=== PATIENT | female | born 2000 | race Caucasian/White ===

== ENCOUNTER 2019-03-01 21:27 | Observation (INO) ==
[2019-03-01] MEDS ORDERED: LORazepam 1 MG/2 ML VIAL IV STA (22:07)
[2019-03-01] MEDS ORDERED: FAMOTIDINE 20MG/5ML IV PUSH IV STA ×2 (22:16→23:30)
[2019-03-01] MEDS ORDERED: ASPIRIN CHEW 324 MG PO STA (22:16)
[2019-03-01 22:23] LABS: Basophils # (auto) 0.02 K/uL (0-0.2); Basophils % (auto) 0.2 %; Eosinophils # (auto) 0.23 K/uL (0-0.5); Eosinophils % (auto) 2.5 %; Hematocrit (blood only) 41.6 % (37-47); Hemoglobin 14.2 g/dL (12.0-16.0); Immature Granulocytes # (auto) 0.01 K/uL (0.00-0.02); Immature Granulocytes % (auto) 0.1 %; Lymphocytes # (auto) 2.53 K/uL (1.2-3.4); Mean Corpuscular Hemoglobin 30.3 pg (25-34); Mean Corpuscular Hgb Conc 34.1 g/dL (32-36); Mean Corpuscular Volume 88.7 fL (80-100); Monocytes # (auto) 0.63 K/uL (0.11-0.59); Neutrophils # (auto) 5.62 K/uL (1.4-6.5); Neutrophils % (auto) 62.2 %; Platelet Count 302 K/uL (130-400); RDW Coefficient of Variation 13.2 % (11.5-14.5); Red Blood Count 4.69 M/uL (4.2-5.4); White Blood Count 9.04 K/uL (4.8-10.8)
--- NOTE | 2019-03-01 22:26 | XRay Report ---
XR chest 1V portable CLINICAL HISTORY: Chest Pain dyspnea COMPARISON STUDY: No previous studies for comparison. FINDINGS: The bones soft tissues and hemidiaphragms are normal. The cardiomediastinal silhouette is n ormal. The lungs are clear. The pulmonary vasculature is normal. IMPRESSION: Negative chest. ACT 112: Negative or not required by law. The above report was generated using voice recognition software. It may contain grammatical, syntax or spelling errors. Electronically signed by: Krishna Ceja M.D. 03/01/2019 10:24 PM
[2019-03-01 22:42] LABS: Alanine Aminotransferase 14 U/L (12-78); Albumin Level 3.8 gm/dl (3.4-5.0); Aspartate Aminotransferase 10 U/L (15-37); BUN Creatinine Ratio 22.6 (10-20); Blood Urea Nitrogen 15 mg/dl (7-18); Calcium 8.9 mg/dl (8.5-10.1); Carbon Dioxide 27 mmol/L (21-32); Chloride 109 mmol/L (98-107); Creatinine Clr Calc Pharmacy 191.5 ml/min; Est GFR (African American) 147.7; Est GFR (Non-African American) 127.4; Glucose 84 mg/dl (70-99); Lipase 421 U/L (73-393); Magnesium 2.1 mg/dl (1.8-2.4); Potassium 3.8 mmol/L (3.5-5.1); Sodium 140 mmol/L (136-145)
[2019-03-01 22:47] LABS: Albumin Globulin Ratio 0.9 (0.9-2); Alkaline Phosphatase 90 U/L (45-117); Bilirubin,Total 0.2 mg/dl (0.2-1); Globulin 4.1 gm/dl (2.5-4.0); Total Protein 7.9 gm/dl (6.4-8.2); Troponin I < 0.015 ng/ml (0-0.045)
[2019-03-01] MEDS ORDERED: GI COCKTAIL ED USE PO ONE (23:30)
[2019-03-01] MEDS ORDERED: LORazepam 2 MG/4 ML VIAL IV STA (23:59)
[2019-03-02 00:47] LABS: Amphetamines+Metham, Urine Neg (Neg); Barbiturates, Urine Neg (Neg); Benzodiazepine, Urine Neg (Neg); Cocaine, Urine Neg (Neg); MDMA (Ecstacy), Urine Neg (Neg); Methadone, Urine Neg (Neg); Opiate, Urine Neg (Neg); Phencyclidine, Urine Neg (Neg)
--- NOTE | 2019-03-02 01:30 | Emergency Department Note ---
Entered by Mimi Monge acting as a scribe for Valentina Tolentino MD History of Present Illness General Chief complaint: Cardiac Assessment Stated complaint: CHEST PAIN, SEIZURE HX Time Seen by Provider: 03/01/19 22:05 Source: patient Limitations: other (Pt being post-ictal.) History of Present Illness Maximum Pain Intensity: 8 The patient is a 18 year old female who presents to the Emergency Room with complaints of worsening chest pain beginning three days ago. The patient states a history of a seizure disorder. She reports worsening chest pain that started three days ago. The patient notes she told her girlfriend she was pre-seizure and then had her typical seizure that lasted less than one minute. She states she follows with Dr. Salas, neurology. The patient reports she recently switched from Keppra to Topamax. HPI limited secondary to the patient being post-ictal and confused. Home Medications Home Medications Medication Instructions Recorded Confirmed Type epinephrine [EpiPen] 0.3 mg IM DIRECTED PRN 02/14/19 03/01/19 History gabapentin 300 mg PO BID 02/14/19 03/01/19 History levetiracetam 500 mg PO BID 02/14/19 03/01/19 History topiramate 25 mg tablet 25 mg PO DAILY #30 tab 02/17/19 03/01/19 Rx Allergies Allergy/AdvReac Type Severity Reaction Status Date / Time bee venom protein (honey bee) Allergy Severe Anaphylaxis Verified 03/01/19 23:13 Penicillins Allergy Severe Itchiness Verified 03/01/19 23:13 latex Allergy Intermediate Skin Tony Verified 03/01/19 23:13 Past Med/Surg History Medical History Asthma Migraine without aura PCOS (polycystic ovarian syndrome) PTSD (post-traumatic stress disorder) Surgical History No pertinent past surgical history Family History Other No significant family history Social History Preferred Language: Georgian Feels Safe at Home: Yes Smoking Status: Current every day smoker Review of Systems See HPI for pertinent positives & negatives. and A total of 10 systems reviewed and were otherwise negative Initial review of systems was unable to be obtained due to apparent postictal state however after patient cleared and ROS was obtained. Physical Exam Vital Signs Vital Signs - 24 hr 03/01/19 21:29 03/01/19 22:04 03/01/19 22:16 Temperature 37.4 C Temperature Source Oral Pulse Rate 106 H 68 84 Pulse Rate from SpO2 Sensor 66 77 Respiratory Rate 20 24 24 Respiratory Effort / Characteristics Non-Labored Spontaneous Respiratory Depth Normal Respiratory Pattern Regular Blood Pressure 153/98 H 144/92 H 146/90 H Blood Pressure Mean 116 97 112 Blood Pressure Position Sitting Pulse Oximetry 99 96 96 Oxygen Delivery Method Room Air Sepsis Recent Fever Within 48 Hours No Sepsis Action Taken by Nursing No Action Required 03/01/19 22:18 03/01/19 22:19 03/01/19 22:30 Temperature Temperature Source Pulse Rate 70 Pulse Rate from SpO2 Sensor 71 Respiratory Rate 24 Respiratory Effort / Characteristics Respiratory Depth Respiratory Pattern Blood Pressure 143/84 H Blood Pressure Mean 97 Blood Pressure Position Pulse Oximetry 96 96 99 Oxygen Delivery Method Room Air Room Air Sepsis Recent Fever Within 48 Hours Sepsis Action Taken by Nursing 03/01/19 22:45 03/01/19 23:00 03/01/19 23:45 Temperature Temperature Source Pulse Rate 75 74 66 Pulse Rate from SpO2 Sensor 72 64 Respiratory Rate 24 24 12 Respiratory Effort / Characteristics Respiratory Depth Respiratory Pattern Blood Pressure 135/79 125/82 125/70 Blood Pressure Mean 97 100 84 Blood Pressure Position Pulse Oximetry 97 98 Oxygen Delivery Method Sepsis Recent Fever Within 48 Hours Sepsis Action Taken by Nursing 03/02/19 00:16 03/02/19 01:31 03/02/19 01:45 Temperature Temperature Source Pulse Rate 83 81 83 Pulse Rate from SpO2 Sensor 94 H Respiratory Rate 24 22 20 Respiratory Effort / Characteristics Respiratory Depth Respiratory Pattern Blood Pressure 120/108 H 136/119 H 151/99 H Blood Pressure Mean 115 125 104 Blood Pressure Position Pulse Oximetry 96 Oxygen Delivery Method Sepsis Recent Fever Within 48 Hours Sepsis Action Taken by Nursing Vital signs reviewed. General: Well-appearing, obese, 18 y/o female, in no significant distress. HEENT: No scleral icterus, PERRLA, neck supple. Atraumatic. Cardiovascular: Regular rate and rhythm, no extra sounds. Pulmonary: Clear to auscultation bilaterally, normal work of breathing. Abdomen: Soft, nontender, nondistended, positive bowel sounds. Musculoskeletal: Atraumatic, no peripheral edema. Neurologic: Patient awake alert and oriented x 3, full strength in all 4 extremities. Cranial nerves 2 through 12 grossly intact. Skin: Warm, dry, no rash Course Course 221: Past medical records reviewed. The patient was evaluated in room C03. A complete history and physical examination was performed. 2358: I reevaluated the patient. She started to get completely confused and pulled off her clothes. Her girlfriend notes this in her normal activity just prior to a "seizure." The patient was given 2mg of IV Ativan and 1g of IV Keppra. She seems to be doing well. 0042: I was called back to the patient's bedside due to some suicidal references the patient made. She has pointed out some superficial lacerations to the right thigh that are self-inflicted. Patient states she has a long psychiatric history and multiple inpatient psych stays. She denies any acute suicidality at this time although did make reference to this earlier to the nurse. As the pat ient has questionable seizure activity and is followed by [facility]y, I reviewed the patient's case with Dr. Redman, [facility] Hospitalist. He will evaluate the patient for further management. 0200: I did review the case with the psychiatric case briefer. Patient will stay for a medical admission and psychiatric consultation. Administered Medications Discontinued Medications Al Hydrox/Mg Hydrox/Simethicone () 1 dose PO ONE ONE Stop: 03/01/19 23:31 Last Admin: 03/01/19 23:38 Dose: 1 dose Documented by: [id number] Aspirin (Aspirin) 324 mg PO NOW STA Stop: 03/01/19 22:17 Last Admin: 03/01/19 22:25 Dose: 324 mg Documented by: [id number] Famotidine (Pepcid 20mg Iv Push) 20 mg IV ONE STA Stop: 03/01/19 22:17 Last Admin: 03/01/19 22:25 Dose: 20 mg Documented by: [id number] Famotidine (Pepcid 20mg Iv Push) 20 mg IV ONE STA Stop: 03/01/19 23:31 Last Admin: 03/01/19 23:38 Dose: 20 mg Documented by: [id number] Lorazepam (Ativan) 1 mg in 2 mls @ 2 mls/min IV NOW STA Stop: 03/01/19 22:08 Last Admin: 03/01/19 22:14 Dose: 2 mls/min Documented by: [id number] Levetiracetam 1,000 mg/ (Dextrose) 110 mls @ 440 mls/hr IV NOW STA Stop: 03/02/19 00:13 Last Infusion: 03/02/19 00:40 Dose: 0 mls/hr Documented by: [id number] Admin: 03/02/19 00:19 Dose: 440 mls/hr Documented by: [id number] Lorazepam (Ativan) 2 mg in 4 mls @ 4 mls/min IV NOW STA Stop: 03/02/19 00:00 Last Admin: 03/02/19 00:02 Dose: 4 mls/min Documented by: [id number] Critical Care Time Critical Care Time: Yes (31) I have personally spent greater than 31 minutes of critical care time in the dir ect management of this patient. This includes bedside care, interpretation of diagnostic studies, and testing, discussion with consultants, patient, and family members, and other required patient management activities. This 31 minutes is in excess of all separately billable procedures. Medical Decision Making Differential Diagnosis Differential diagnosis includes etiologies such as infection, hypoglycemia, electrolyte abnormalities, intracerebral event, trauma, toxicologic, neurologic, acute coronary syndrome, myocardial infarction, pericarditis, pulmonary embolus, aortic dissection, pneumonia, pneumothorax, musculoskeletal, shingles, esophageal. Medical Records Attestation: I reviewed the patient's medical records. Home Medications Current Medication List: was personally reviewed by me Laboratory Data Attestation: I reviewed the patient's lab results. Result diagrams: 03/01/19 Unknown 03/01/19 Unknown Lab Results 03/01/19 03/01/19 03/02/19 Range/Units Unknown Unknown 00:16 WBC 9.04 (4.8-10.8) K/uL RBC 4.69 (4.2-5.4) M/uL Hgb 14.2 (12.0-16.0) g/dL Hct 41.6 (37-47) % MCV 88.7 (80-100) fL MCH 30.3 (25-34) pg MCHC 34.1 (32-36) g/dL RDW Std Deviation 43.0 (36.4-46.3) fL RDW Coeff of Alessandra 13.2 (11.5-14.5) % Plt Count 302 (130-400) K/uL MPV 11.0 H (7.4-10.4) fL Immature Gran % (Auto) 0.1 % Neut % (Auto) 62.2 % Lymph % (Auto) 28.0 % Luce % (Auto) 7.0 % Eos % (Auto) 2.5 % Baso % (Auto) 0.2 % Immature Gran # (Auto) 0.01 (0.00-0.02) K/uL Neut # (Auto) 5.62 (1.4-6.5) K/uL Lymph # (Auto) 2.53 (1.2-3.4) K/uL Luce # (Auto) 0.63 H (0.11-0.59) K/uL Eos # (Auto) 0.23 (0-0.5) K/uL Baso # (Auto) 0.02 (0-0.2) K/uL Sodium 140 (136-145) mmol/L Potassium 3.8 (3.5-5.1) mmol/L Chloride 109 H (98-107) mmol/L Carbon Dioxide 27 (21-32) mmol/L Anion Gap 4.0 (3-11) BUN 15 (7-18) mg/dl Creatinine 0.67 (0.6-1.2) mg/dl Est Cr Clr Drug Dosing 191.5 ml/min Est GFR ( Amer) 147.7 Est GFR (Non-Af Amer) 127.4 BUN/Creatinine Ratio 22.6 H (10-20) Glucose 84 (70-99) mg/dl Calcium 8.9 (8.5-10.1) mg/dl Magnesium 2.1 (1.8-2.4) mg/dl Total Bilirubin 0.2 (0.2-1) mg/dl AST 10 L (15-37) U/L ALT 14 (12-78) U/L Alkaline Phosphatase 90 (45-117) U/L Troponin I < 0.015 (0-0.045) ng/ml Total Protein 7.9 (6.4-8.2) gm/dl Albumin 3.8 (3.4-5.0) gm/dl Globulin 4.1 H (2.5-4.0) gm/dl Albumin/Globulin Ratio 0.9 (0.9-2) Lipase 421 H (73-393) U/L Urine Opiates Screen Neg (Neg) Ur Methadone, Qual Neg (Neg) Urine Barbiturates Neg (Neg) Ur Phencyclidine (PCP) Neg (Neg) U Amphetamin/Meth Scrn Neg (Neg) MDMA (Ecstasy) Screen Neg (Neg) U Benzodiazepines Scrn Neg (Neg) Ur Cocaine Metabolite Neg (Neg) U Marijuana (THC) Screen Pos H (Neg) Imaging Data Radiologist's Impression: Radiology results as stated below per my review and the radiologist's interpretation: XR chest 1V portable CLINICAL HISTORY: Chest Pain dyspnea COMPARISON STUDY: No previous studies for comparison. FINDINGS: The bones soft tissues and hemidiaphragms are normal. The cardiomediastinal silhouette is normal. The lungs are clear. The pulmonary vasculature is normal. IMPRESSION: Negative chest. ACT 112: Negative or not required by law. The above report was generated using voice recognition software. It may contain grammatical, syntax or spelling errors. Electronically signed by: Krishna Ceja M.D. 03/01/2019 10:24 PM ECG Data Attestation: I personally reviewed and interpreted this ECG as follows: Indication: + chest pain Rate (beats per minute): 87 Rhythm: + normal sinus ECG Intervals/blocks: + Normal QT-c ECG ST segments: no ST depression and no ST elevation ECG Findings: no PACs and no PVCs Prescription Drug Monitoring Prescription Drug Findings: An order for cardiac monitoring was placed and the patient is found to be in a sinus tachycardia at 106 bpm. Blood Pressure Blood Pressure Findings: Elevated blood pressure Blood Pressure Disposition: further management by hospitalist MIGNON Narrative This patient was evaluated and appeared to be in no significant distress. IV access was obtained and laboratory work was drawn. Patient was placed on the diesel instructor with seizure precautions maintained. Patient had an interesting course through the visits in the emergency department. She is initially complaining of chest pain. Patient's EKG, chest x-ray and laboratory work are reassuring. Patient had an episode of a "seizure" which per girlfriend escalates into staring, thrashing and pulling at clothing/IVs. The patient did take off her shirt several times, kicked off her shoes and attempted to remove her pants. There was no tonic-clonic activity to follow. Patient did receive 2 mg of IV Ativan with transient improvement in symptoms. She was loaded with 1 g of IV Keppra. After reviewing the patient's records more thoroughly, I recent note from neurology reveals they held her Keppra therapy for pending EMU. Patient is currently taking Topamax. Patient had another seizure-like episode but was able to be redirected. She apparently stated to nursing staff that she is suicidal. Upon my questioning the patient, she states she has passively suicidal. She denies any intent to harm herself currently. The case was discussed with the hospitalist, Dr. Pierce who has requested psychiatric case management evaluation. The patient apparently endorsed suicidal thinking. She states she has been inpatient psych many times. At this time the patient will be admitted medically for clearance of the seizure-like activity/neurological consultation with a 302 petition on the chart. The patient will likely need to transition to psychiatric care. Impression & Plan Seizure-like activity, Atypical chest pain, Mood disorder, Suicidal thoughts Discharge Plan Visit Data Chief Complaint: Cardiac Assessment Stated Complaint: CHEST PAIN, SEIZURE HX ED Provider: Valentina Tolentino Discharge Problem: Seizure-like activity, Atypical chest pain, Mood disorder, Suicidal thoughts Patient Disposition: Being Evaluated by Hospitalist Forms Stand Alone Forms: My [facility] Prescriptions Prescriptions: No Action topiramate 25 mg tablet 25 mg PO DAILY Qty: 30 RF: 0 levetiracetam 500 mg tablet 500 mg PO BID RF: 0 gabapentin 300 mg capsule 300 mg PO BID RF: 0 epinephrine [EpiPen] 0.3 mg/0.3 mL Auto-Injector 0.3 mg IM DIRECTED PRN (Reason: Anaphylaxis) RF: 0 Referrals Referrals: Emely Urrutia CRNP [Primary Care Provider] - The scribe's documentation has been prepared under my direction and personally reviewed by me in its entirety. I confirm that the note above accurately reflects all work, treatment, procedures, and medical decision making performed by me.
[2019-03-02 02:11] LABS: Appearance Urine Turbid (Clear); Bacteria Urine Automated 2+ (Negative); Bilirubin Urine Negative (Negative); Blood Urine Negative (Negative); Color Urine Yellow; Epithelial Cell Urine Auto >30 /lpf (0-5); Glucose Urine UA Negative (Negative); Ketones Urine Negative (Negative); Leukocyte Esterase Urine Trace (Negative); Nitrite Urine Negative (Negative); Protein Urine Negative (Negative); Urobilinogen Urine Negative (Negative); WBC Urine Automated >30 /hpf (0-5); pH Urine 5.5 (4.5-7.5)
[2019-03-02 02:15] LABS: Pregnancy Test, Urine Negative (Negative)
[2019-03-02 02:20] LABS: Cast Urine Automated 0 /lpf (0-5); RBC Urine Automated 0-4 /hpf (0-4)
[2019-03-02 02:21] LABS: Mucus Urine Present (None Prsent)
--- NOTE | 2019-03-02 03:35 | History & Physical Report ---
Date of Service March 02, 2019 Assessment & Plan (1) Seizure-like activity: 18 yo transgender man with PMH of asthma, PCOS, PTSD, seizure disorder, and polysubstance abuse presents with concerns of CP (workup neg), questionable seizure like activity while in ED, and admission to some passive suicidal ideations. Seizure-like Activity -Pt follows with Dr. Salas. Last seen Feb 17, 2019. -Notes that these recurrent spells of LOC with convulsive movements most likely suggestive of psychogenic nonepileptic seizures -pt's Keppra was not refilled as Neuro wanted to hold off on AEDs until EMU visit at [facility] (for spell capture/classification) -pt was previously on Depakote 500 mg BID (worked well but was stopped 2/2 ? concern) -pt was started on start topamax 25mg daily for migraines -EEG Oct 2018: PDR 10-11 Hz, generalized intermittent 4-5 Hz slowing suggestive of encephalopathy, no focal slowing or epileptiform discharges, no electrographic seizures noted -MRI Brain Oct 2018 ([facility] [place])- No T2 hyperintensities noted, acute or chronic strokes, no mesial temporal sclerosis, normal cerebellar tonsils -EEG in AM. Defer additional head imaging to Neurology -Seizure precautions -Appreciate Neurology Consult Suicidal Ideations -302 in pt's chart -1:1 sitter ordered -Suicide precautions -Appreciate Psych Consult Polysubstance Abuse -UDS: Positive for MJ -recent hospitalization at [facility] [place] Oct 2018 for respiratory arrest 2/ heroin/meth/marijuana overdose FEN/GI: Regular. Safe Tray. DVT Prophylaxis: Low risk per admission calculator Full Code Dispo: Med Tele. Anticipate inpt psych admission after medical clearance. History of Present Illness Chief Complaint: cp Primary Care Provider: JODI Mead Alexandre "Willie" Florencia is a 18 yo transgender man with PMH of asthma, PCOS, PTSD, seizure disorder, and polysubstance abuse who presents to [facility] with complaints of CP that began 3 days ago. Pt accompanied by girlfriend, and both are questionable historians. Worse with exertion. Radiates into L side of neck and down into L UE and LE. Pt admits that she used to do meth, but quit 2 months ago and believes that maybe this might be related to withdrawal. While in the ER, pt reports that she had a typical seizure that lasted less than one minute. Per ER physician report, pt started to get completely confused and pulled off her clothes. Her girlfriend notes this in her normal activity just prior to a seizure. No actual tonic-clonic activity was witnessed, however. Pt follows with Dr. Salas (Neurology) and reports that she recently switched from Keppra to Topamax a few weeks ago. While in ED, pt made remarks about fleeting thoughts of wanting to hurt herself and passive suicidal ideations to nursing staff. Pt willingly pointed out some superficial lacerations to the right thigh that are self-inflicted. Pt with long psychiatric history and multiple inpatient psych stays. At time of my evaluation, pt does admit to making these remarks regarding suicidal ideations, but states that she does not think that this warrants a psychiatric admission. A psychiatric case management evaluation was done in ED. The patient apparently endorsed suicidal thinking. A 302 petition is in pt's chart. Pt will be admitted medically for clearance of the seizure-like activity and a Neuro consultation. More than likely, pt will transition to inpt psych admission after this. EKG: NSR. When compared with ECG of 14-FEB-2019, no significant changes found CXR: Negative chest Pertinent Labs: Lipase 421. Initial Trop neg. Otherwise unremarkable. ER Course: 2mg of IV Ativan and 1g of IV Keppra Family Hx: Father- epilepsy. Otherwise unremarkable Social: Daily MJ Use. Previous heroin, meth use (last used 2 months ago). 1ppd x 2 yrs, 1/2 ppd from [age] yo. Social Alcohol use. Surgical Hx: None Allergies Allergy/AdvReac Type Severity Reaction Status Date / Time bee venom protein (honey bee) Allergy Severe Anaphylaxis Verified 03/01/19 23:13 Penicillins Allergy Severe Itchiness Verified 03/01/19 23:13 latex Allergy Intermediate Skin Tony Verified 03/01/19 23:13 Home Medications Home Medications Medication Instructions Recorded Confirmed Type epinephrine [EpiPen] 0.3 mg IM DIRECTED PRN 02/14/19 03/01/19 History gabapentin 300 mg PO BID 02/14/19 03/01/19 History levetiracetam 500 mg PO BID 02/14/19 03/01/19 History topiramate 25 mg tablet 25 mg PO DAILY #30 tab 02/17/19 03/01/19 Rx Past Med/Surg History Medical History Asthma Migraine without aura PCOS (polycystic ovarian syndrome) PTSD (post-traumatic stress disorder) Surgical History No pertinent past surgical history S/P appendectomy S/P cholecystectomy S/P tonsillectomy Family History Mother Hypertension Diabetes Father Epilepsy Other No significant family history Social History Preferred Language: Serbian Beliefs That Will Affect Care: None Current Living Situation: Spouse current occupational status: unemployed current occupation: Starts at [employer] tomorrow. Other Information That Helps Us Care for You: No Feels Safe at Home: Yes Safety Concerns: Feels Safe At This Time Smoking Status: Current every day smoker Tobacco Type: cigarettes ; Cigarettes Per Day: 10 ; Do You Dip or Chew Tobacco: No ; Second Hand Exposure: Yes ; Tobacco Cessation Education Requested by Patient: No Hx Alcohol Use: No Hx Substance Use: Yes substance use type: marijuana and methamphetamine Substance Use Type Other:: meth last used 01/21/2019 Last Used Substance: Days (ago) Last Used Substance Other:: 01/21/2019 Review of Systems Review of Systems: All systems reviewed & are unremarkable except as noted in HPI & below Physical Exam Constitutional: WD/WN, vitals as above + obese Eyes: PERRL, conjunctivae normal, anicteric sclerae ENMT: external ear and nose normal, oropharynx normal Respiratory: normal respiratory effort, lungs clear to auscultation Cardiovascular: RRR, no murmur, no edema Gastrointestinal (Abdomen): normal bowel sounds, soft, nontender, no hepatosplenomegaly Skin: no rashes, warm and dry Neurologic: CN's II-XI intact bilaterally; no focal motor deficits Psychiatric: Affect: + anxious affect Results & Data Vital Signs (Past 12 Hours) Vital Signs Temp Pulse Resp BP Pulse Ox 03/02/19 01:45 83 20 151/99 H 03/02/19 01:31 81 22 136/119 H 03/02/19 00:16 83 24 120/108 H 96 03/01/19 23:45 66 12 125/70 98 03/01/19 23:00 74 24 125/82 97 03/01/19 22:45 75 24 135/79 03/01/19 22:30 70 24 143/84 H 99 03/01/19 22:19 96 03/01/19 22:18 96 03/01/19 22:16 84 24 146/90 H 96 03/01/19 22:04 68 24 144/92 H 96 03/01/19 21:29 37.4 C 106 H 20 153/98 H 99 Laboratory Results Laboratory Results - last 24 hr 03/01/19 03/01/19 03/02/19 Unknown Unknown 00:15 WBC 9.04 RBC 4.69 Hgb 14.2 Hct 41.6 MCV 88.7 MCH 30.3 MCHC 34.1 RDW Std Deviation 43.0 RDW Coeff of Alessandra 13.2 Plt Count 302 MPV 11.0 H Immature Gran % (Auto) 0.1 Neut % (Auto) 62.2 Lymph % (Auto) 28.0 Cuming % (Auto) 7.0 Eos % (Auto) 2.5 Baso % (Auto) 0.2 Immature Gran # (Auto) 0.01 Neut # (Auto) 5.62 Lymph # (Auto) 2.53 Cuming # (Auto) 0.63 H Eos # (Auto) 0.23 Baso # (Auto) 0.02 Sodium 140 Potassium 3.8 Chloride 109 H Carbon Dioxide 27 Anion Gap 4.0 BUN 15 Creatinine 0.67 Est Cr Clr Drug Dosing 191.5 Est GFR ( Amer) 147.7 Est GFR (Non-Af Amer) 127.4 BUN/Creatinine Ratio 22.6 H Glucose 84 Calcium 8.9 Magnesium 2.1 Total Bilirubin 0.2 AST 10 L ALT 14 Alkaline Phosphatase 90 Troponin I < 0.015 Total Protein 7.9 Albumin 3.8 Globulin 4.1 H Albumin/Globulin Ratio 0.9 Lipase 421 H TSH 1.470 Urine Color Yellow Urine Appearance Turbid A Urine pH 5.5 Ur Specific [place] 1.030 Urine Protein Negative Urine Glucose (UA) Negative Urine Ketones Negative Urine Blood Negative Urine Nitrite Negative Urine Bilirubin Negative Urine Urobilinogen Negative Ur Leukocyte Esterase Trace H Urine WBC (Auto) >30 H Urine RBC (Auto) 0-4 U Hyaline Cast (Auto) 0 U Epithel Cells (Auto) >30 H Urine Bacteria (Auto) 2+ H Urine Mucus Present A Urine Yeast Not Reportable Urine Test POC Ur Test Urine Opiates Screen Ur Methadone, Qual Urine Barbiturates Ur Phencyclidine (PCP) U Amphetamin/Meth Scrn MDMA (Ecstasy) Screen U Benzodiazepines Scrn Ur Cocaine Metabolite U Marijuana (THC) Screen U Marijuana THC Carboxy Drug Screen Comment 03/02/19 03/02/19 03/02/19 00:15 00:15 00:16 WBC RBC Hgb Hct MCV MCH MCHC RDW Std Deviation RDW Coeff of Alessandra Plt Count MPV Immature Gran % (Auto) Neut % (Auto) Lymph % (Auto) Cuming % (Auto) Eos % (Auto) Baso % (Auto) Immature Gran # (Auto) Neut # (Auto) Lymph # (Auto) Cuming # (Auto) Eos # (Auto) Baso # (Auto) Sodium Potassium Chloride Carbon Dioxide Anion Gap BUN Creatinine Est Cr Clr Drug Dosing Est GFR ( Amer) Est GFR (Non-Af Amer) BUN/Creatinine Ratio Glucose Calcium Magnesium Total Bilirubin AST ALT Alkaline Phosphatase Troponin I Total Protein Albumin Globulin Albumin/Globulin Ratio Lipase TSH Urine Color Urine Appearance Urine pH Ur Specific [place] Urine Protein Urine Glucose (UA) Urine Ketones Urine Blood Urine Nitrite Urine Bilirubin Urine Urobilinogen Ur Leukocyte Esterase Urine WBC (Auto) Urine RBC (Auto) U Hyaline Cast (Auto) U Epithel Cells (Auto) Urine Bacteria (Auto) Urine Mucus Urine Yeast Urine Test Negative POC Ur Test Cancelled Urine Opiates Screen Neg Ur Methadone, Qual Neg Urine Barbiturates Neg Ur Phencyclidine (PCP) Neg U Amphetamin/Meth Scrn Neg MDMA (Ecstasy) Screen Neg U Benzodiazepines Scrn Neg Ur Cocaine Metabolite Neg U Marijuana (THC) Screen Pos H U Marijuana THC Carboxy Drug Screen Comment 03/02/19 00:16 WBC RBC Hgb Hct MCV MCH MCHC RDW Std Deviation RDW Coeff of Alessandra Plt Count MPV Immature Gran % (Auto) Neut % (Auto) Lymph % (Auto) Cuming % (Auto) Eos % (Auto) Baso % (Auto) Immature Gran # (Auto) Neut # (Auto) Lymph # (Auto) Cuming # (Auto) Eos # (Auto) Baso # (Auto) Sodium Potassium Chloride Carbon Dioxide Anion Gap BUN Creatinine Est Cr Clr Drug Dosing Est GFR ( Amer) Est GFR (Non-Af Amer) BUN/Creatinine Ratio Glucose Calcium Magnesium Total Bilirubin AST ALT Alkaline Phosphatase Troponin I Total Protein Albumin Globulin Albumin/Globulin Ratio Lipase TSH Urine Color Urine Appearance Urine pH Ur Specific [place] Urine Protein Urine Glucose (UA) Urine Ketones Urine Blood Urine Nitrite Urine Bilirubin Urine Urobilinogen Ur Leukocyte Esterase Urine WBC (Auto) Urine RBC (Auto) U Hyaline Cast (Auto) U Epithel Cells (Auto) Urine Bacteria (Auto) Urine Mucus Urine Yeast Urine Test POC Ur Test Urine Opiates Screen Ur Methadone, Qual Urine Barbiturates Ur Phencyclidine (PCP) U Amphetamin/Meth Scrn MDMA (Ecstasy) Screen U Benzodiazepines Scrn Ur Cocaine Metabolite U Marijuana (THC) Screen U Marijuana THC Carboxy Pending Drug Screen Comment Pending Code Status & VTE Plan Code Status FULL Supervising Physician Co-Signing Physician Notes Attending addendum: I have physically seen this patient, have supervised the medical residents activities, and agree with the H&P unless as otherwise noted. Assessment and Plan: Seizure-like activity- Recently seen by Dr. Salas in the office on 02/17/2019. Activity as noted by emergency department personnel questioned true seizure activity. Did receive Keppra 1000 mg IV x1. Order EEG for a.m. Since MRI brain performed 10/2018 at [facility] [place], will not repeat at this time. Suicidal ideations- Reported by patient and by patient's friends in attendance. Psychiatry liaison agrees the patient should be 302'd. One-on-one observation. Suicide precautions. Consult psychiatry. Remainder of orders and notations as noted. Resident Activity Tracking Resident Involvement: Resident Care Provided Care Provided: Adult Hospital Medicine
[2019-03-02] MEDS ORDERED: ALUMINUM/MAGNESIUM SUSP 30 ML UDC PO PRN (04:38)
[2019-03-02] MEDS ORDERED: ONDANSETRON INJ 2 MG/ML 2 ML VIAL IV PRN (04:38)
[2019-03-02] MEDS ORDERED: ACETAMINOPHEN 325 MG TAB PO PRN (04:38)
[2019-03-02 06:22] LABS: Basophils # (auto) 0.02 K/uL (0-0.2); Basophils % (auto) 0.1 %; Eosinophils # (auto) 0.25 K/uL (0-0.5); Eosinophils % (auto) 1.8 %; Hematocrit (blood only) 40.5 % (37-47); Hemoglobin 13.9 g/dL (12.0-16.0); Immature Granulocytes # (auto) 0.04 K/uL (0.00-0.02); Immature Granulocytes % (auto) 0.3 %; Lymphocytes # (auto) 2.99 K/uL (1.2-3.4); Lymphocytes % (auto) 21.3 %; Mean Corpuscular Hemoglobin 30.2 pg (25-34); Mean Corpuscular Hgb Conc 34.3 g/dL (32-36); Mean Corpuscular Volume 87.9 fL (80-100); Mean Platelet Volume 11.4 fL (7.4-10.4); Monocytes % (auto) 5.7 %; Neutrophils # (auto) 9.91 K/uL (1.4-6.5); Neutrophils % (auto) 70.8 %; Platelet Count 293 K/uL (130-400); RDW Coefficient of Variation 13.2 % (11.5-14.5); RDW Standard Deviation 42.5 fL (36.4-46.3); Red Blood Count 4.61 M/uL (4.2-5.4); White Blood Count 14.01 K/uL (4.8-10.8)
[2019-03-02 06:58] LABS: BUN Creatinine Ratio 20.9 (10-20); Est GFR (African American) 147.7; Est GFR (Non-African American) 127.4
--- NOTE | 2019-03-02 09:21 | Electroencephalogram ---
EEG Procedure Note Date of Service March 02, 2019 Start / End Times Start Time: 628 End Time: [address] Soto History 18-year-old with history of seizures versus pseudoseizures. Home Medication List Home Medications Medication Instructions Recorded Confirmed Type epinephrine [EpiPen] 0.3 mg IM DIRECTED PRN 02/14/19 03/01/19 History gabapentin 300 mg PO BID 02/14/19 03/01/19 History levetiracetam 500 mg PO BID 02/14/19 03/01/19 History topiramate 25 mg tablet 25 mg PO DAILY #30 tab 02/17/19 03/01/19 Rx Inpatient Medication List Discontinued Medications Al Hydrox/Mg Hydrox/Simethicone () 1 dose PO ONE ONE Stop: 03/01/19 23:31 Last Admin: 03/01/19 23:38 Dose: 1 dose Documented by: [id number] Aspirin (Aspirin) 324 mg PO NOW STA Stop: 03/01/19 22:17 Last Admin: 03/01/19 22:25 Dose: 324 mg Documented by: [id number] Famotidine (Pepcid 20mg Iv Push) 20 mg IV ONE STA Stop: 03/01/19 22:17 Last Admin: 03/01/19 22:25 Dose: 20 mg Documented by: [id number] Famotidine (Pepcid 20mg Iv Push) 20 mg IV ONE STA Stop: 03/01/19 23:31 Last Admin: 03/01/19 23:38 Dose: 20 mg Documented by: [id number] Lorazepam (Ativan) 1 mg in 2 mls @ 2 mls/min IV NOW STA Stop: 03/01/19 22:08 Last Admin: 03/01/19 22:14 Dose: 2 mls/min Documented by: [id number] Levetiracetam 1,000 mg/ (Dextrose) 110 mls @ 440 mls/hr IV NOW STA Stop: 03/02/19 00:13 Last Infusion: 03/02/19 00:40 Dose: 0 mls/hr Documented by: [id number] Admin: 03/02/19 00:19 Dose: 440 mls/hr Documented by: [id number] Lorazepam (Ativan) 2 mg in 4 mls @ 4 mls/min IV NOW STA Stop: 03/02/19 00:00 Last Admin: 03/02/19 00:02 Dose: 4 mls/min Documented by: [id number] Description This is a 21 electrode EEG with a single channel dedicated to limited EKG. The electrodes were placed in accordance with the International 10-20 system. Interpretation The predominant background activity consists of a fairly very well modulated 9.5Hz activity, of up to 40 mV in amplitude,seen symmetrically distributed over the posterior head regions bilaterally. This activity attenuates nicely with eye-opening and other alerting procedures. Photic stimulation was performed and elicited some driving response in the background activity at low flash frequencies, but no abnormal responses were seen. Hyperventilation was not performed. A mild amount of muscle and movement artifact activity contaminated the recording from time to time, yet did not hinder interpretation to any significant degree. Throughout the recording, no focal abnormalities, abnormal slow activity, or potentially epileptogenic discharges were seen. Patient did not enter drowsiness or sleep In summary, this EEG was normal during wakefulness. No focal abnormalities, potentially epileptogenic discharges, or abnormal slow activity was seen. Clinical Correlation The abscence of potentially epileptogenic activity does not exclude a seizure disorder, since interictally, EEGs can be normal. Clinical correlation is required. [facility] EEG Procedure Codes Indication for Procedure (1) Seizure-like activity: Neurology Neurology: 12989 EEG include record awake & drowsy
[2019-03-02] MEDS: TOPIRAMATE 25 MG TAB PO SCH (10:07)
--- NOTE | 2019-03-02 10:30 | Neurology Consultation ---
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 I have spoken with Dr. Salas who does not want the patient initiated on any additional anticonvulsants (especially Keppra) until she is sent to evaluated at epilepsy monitoring unit ([facility]). Neurologic examination is nonfocal with no meningeal signs or encephalopathy. EEG today was unremarkable during wakefulness without focal abnormalities or potentially epileptogenic discharges. Patient has a history of substance abuse but has only been using marijuana since October (according to the patient and the girlfriend present at bedside) Patient has a known history of PTSD and depression/anxiety. Patient wants to talk to Psychiatry. There is a history of migraine headaches which were not helped by low-dose topiramate (and topiramate increased frequency of the spells). Recommendations: 1. Psychiatric consult. 2. Discontinue topiramate 3. Avoid initiating any new anticonvulsants at this time although the patient requests levetiracetam. If levetiracetam has to be given that I would suggest a low-dose such as 500 milligrams twice daily. 4. Increase activity as able. 5. Try to arrange for direct transfer to the [facility] EMU. Until we can capture spells while connected to EEG, just proving seizures versus pseudoseizures, optimal therapy cannot be achieved. Overall, I spent a total of 70 minutes with this case including review of records, direct evaluation the patient bedtime , and discussion of the case with the patient and girlfriend at bedside, RN at bedside, Dr. Salas, and Dr. Barraza, including differential diagnosis and treatment options. History of Present Illness Reason for Consultation: Patient is a 18-year-old, who I was asked to see at the request of Dr. Soto, for neurologic consultation regarding seizures versus pseudoseizures. Requesting Physician: Dr. Soto Attending Physician: Harsha Blanc, DO History of Present Illness Apparently this patient started getting seizures at age 5 or 6. There were staring spells up to 60 seconds without postictal state triggered by stress and starting at age 9 generalized shaking episodes of varying types occasionally with tongue biting or rarely incontinence of urine. Apparently there was a history of episodes of pelvic thrusting, nonrhythmic shaking of the limbs, and even the taking off of clothes during spells. In the past the patient was on Depakote but the patient states that this gave her side effects lethargy. There was a note that this medicine work fairly well for seizures but was taken off because of risk. Patient was changed to levetiracetam. This patient tells me that Keppra is the only medication that works for her seizures. The patient does not think it affects mood in a negative fashion. Apparently the patient has been evaluated by clinicians in [place], [place], [facility], [facility], and [facility] in [place]. No one has been able to prove epilepsy. Patient's PCP put the patient on gabapentin presumably for seizures. The patient is not certain whether this medication helps or not. In October she was admitted for polysubstance abuse including heroin, meth, and marijuana. Apparently, EEG at that time was unremarkable for seizure activity an MRI of the brain was unremarkable. I Do not have these results. The patient saw Dr. Salas February 17 as an outpatient. Her note suggested that she wanted the patient off Keppra and gabapentin. She did initiate topiramate 25 milligrams a day for migraines. Patient believes that the migraines have not been affected by this but they increased the seizure activity considerably. Patient states that there has been no other drug use besides mar ijuana since October. The patient came to the emergency room March 01 with chest pain for several days. There were seizures occurring as well. Last marijuana usage was 1 day prior to admission. At 2128 on March 01, temperature was 37.4, pulse 106, respiratory 20, blood pressure 153/98, and O2 saturation 99 percent. There was questionable seizure activity in the ER and there was some suicidal type ideation in the ER. Allergies Allergy/AdvReac Type Severity Reaction Status Date / Time bee venom protein (honey bee) Allergy Severe Anaphylaxis Verified 03/01/19 23:13 Penicillins Allergy Severe Itchiness Verified 03/01/19 23:13 latex Allergy Intermediate Skin Tony Verified 03/01/19 23:13 Home Medications Home Medications Medication Instructions Recorded Confirmed Type epinephrine [EpiPen] 0.3 mg IM DIRECTED PRN 02/14/19 03/01/19 History gabapentin 300 mg PO BID 02/14/19 03/01/19 History levetiracetam 500 mg PO BID 02/14/19 03/01/19 History topiramate 25 mg tablet 25 mg PO DAILY #30 tab 02/17/19 03/01/19 Rx Patient History Medical History Asthma Migraine without aura PCOS (polycystic ovarian syndrome) PTSD (post-traumatic stress disorder) Surgical History No pertinent past surgical history S/P appendectomy S/P cholecystectomy S/P tonsillectomy Family History Mother Hypertension Diabetes Father Epilepsy Other No significant family history Social History Preferred Language: Setswana Beliefs That Will Affect Care: None Current Living Situation: Spouse current occupational status: unemployed current occupation: Starts at [employer] tomorrow. Other Information That Helps Us Care for You: No Feels Safe at Home: Yes Safety Concerns: Feels Safe At This Time Smoking Status: Current every day smoker Tobacco Type: cigarettes ; Cigarettes Per Day: 10 ; Do You Dip or Chew Tobacco: No ; Second Hand Exposure: Yes ; Tobacco Cessation Education Requested by Patient: No Hx Alcohol Use: No Hx Substance Use: Yes substance use type: marijuana and methamphetamine Substance Use Type Other:: meth last used 01/21/2019 Last Used Substance: Days (ago) Last Used Substance Other:: 01/21/2019 Review of Systems Constitutional: + fatigue; no fever and no weakness Eyes: no diplopia, no eye pain and no worsening vision Ear, Nose, Mouth, Throat: no ear pain, no tinnitus, no hearing loss, no dizziness, no snoring, no hoarseness and no dysphagia Respiratory: no cough and no dyspnea Cardiovascular: no chest pain, no palpitations and no lightheadedness Gastrointestinal: no abdominal pain, no nausea and no vomiting Genitourinary: no dysuria, no urinary frequency and no urinary incontinence Musculoskeletal: + back pain; no neck pain, no radicular pain, no joint pain and no myalgia Integumentary: no rash and no lesions Neurologic: no gait abnormality, no localized weakness, no generalized weakness, no tingling, no numbness, no tremor(s), no abnormal movements, no headache(s), no abnormal speech, no confusion and no memory loss Psychiatric: + depression and + anxiety; no irritability, no difficulty concentrating, no confusion and no hallucinations Endocrine: + fatigue; no flushing Hematologic / Lymphatic: no easy bleeding and no easy bruising Allergy / Immunological: no urticaria and no problem reported Physical Exam Physical Exam: The patient is ambidextrous with eating and throwing both right and left hand. She tends to kick with her right foot. Although sleepy at 1st, the patient became awake, alert, and attentive. Speech is normal without any aphasia or dysarthria. There is good naming of objects, repeat phrases, and has normal spontaneous speech. Mentation and thought processes are intact, with orientation to person, place and time, and normal fund of knowledge. Attention and concentration are normal. Mood and affect are normal and appropriate. General appearance and grooming are normal. Short and long-term memory are reasonable to conversation. The discs are sharp with positive venous pulsations bilaterally. There are no exudates, hemorrhages, or blood vessel changes seen. Pupils are 4 mm bilaterally and reactive to light. Extraocular eye muscles are intact without nystagmus. Visual acuity and visual joe seem normal grossly to confrontation. There are no deficits to sensation in the face in all 3 distributions of the fifth cranial nerve bilaterally. Corneal reflexes are positive bilaterally. Facial strength and symmetry was normal bilaterally. Hearing seems normal to wh isper and finger rub bilaterally. Palate moves well without asymmetry. There is normal sternocleidomastoid and trapezius (shoulder shrug) strength bilaterally. Tongue is midline with good strength bilaterally. Neck has a full range of motion without discomfort. There are no cervical bruits bilaterally. There are no cranial or ocular bruits. Heart is without murmur. There is a regular rhythm and rate. Cervical spine is nontender to palpation. Thoracic and lumbar spine are nontender to palpation. Gait is narrow based, with good arm swing, turns, and stance. With outstretched arms there is no drift. There are no resting, postural, or action tremors. There is no ataxia with finger to nose testing. There is good facility in the hands. No other abnormal involuntary movements are noted. Motor strength is 5/5 diffusely in the arms bilaterally including deltoids, biceps, triceps, brachioradialis, wrist flexors and extensors, consignee, and intrinsic hand muscles. Motor strength is 5/5 diffusely in the legs bilaterally including hip flexors, quadriceps, hamstrings, gastrocnemius, tibialis anterior, tibialis posterior, and Peroneii muscles. Toe extensors are normal and there is good bulk in the extensor digitorum brevis muscles bilaterally. The limbs have good tone without rigidity or spasticity. There is no atrophy noted in the muscles. Muscle bulk is normal, there is no tenderness to palpation, no myotonia to percussion, and no fasciculations seen. Sensory examination is intact to touch and pin throughout all 4 limbs diffusely. Reflexes are 1/4 in the biceps, triceps, brachioradialis, quadriceps, and Achilles tendons bilaterally. There is no clonus bilaterally. Toes are downgoing with plantar stimulation bilaterally. Peripheral pulses are present and of normal quality distally in all 4 limbs. There is no peripheral edema noted in the limbs. Results & Data Vital Signs (Past 12 Hours) Vital Signs Temp Pulse Pulse Resp BP BP Pulse Ox 03/02/19 07:04 80 03/02/19 04:45 37.4 C 87 22 117/79 98 03/02/19 04:28 77 16 166/93 H 98 03/02/19 01:45 83 20 151/99 H 03/02/19 01:31 81 22 136/119 H 03/02/19 00:16 83 24 120/108 H 96 03/01/19 23:45 66 12 125/70 98 03/01/19 23:00 74 24 125/82 97 03/01/19 22:45 75 24 135/79 03/01/19 22:30 70 24 143/84 H 99 03/01/19 22:19 96 03/01/19 22:18 96 03/01/19 22:16 84 24 146/90 H 96 PG Care Time/CCT Total # of Minutes Spent Total Time Spent with Patient: Total time spent is greater than 50% in coordination of care (as documented) at patient's floor/unit and/or counseling patient:
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
[2019-03-02] MEDS: LORazepam 2 MG/4 ML VIAL IV PRN (16:12)
[2019-03-02] MEDS ORDERED: HALOPERIDOL LACTATE 5 MG/ML 1 ML VIAL IM STA ×2 (17:16→18:51)
--- NOTE | 2019-03-02 19:09 | Hospitalist Progress Note ---
Date of Service March 02, 2019 Assessment & Plan (1) Seizure-like activity: 18 yo transgender man with PMH of asthma, PCOS, PTSD, seizure disorder, and polysubstance abuse presents with concerns of CP (workup neg), questionable seizure like activity while in ED, and admission to some passive suicidal ideations. Seizure-like Activity -Pt follows with Dr. Salas. Last seen Feb 17, 2019. -Notes that these recurrent spells of LOC with convulsive movements most likely suggestive of psychogenic nonepileptic seizures -pt's Keppra was not refilled as Neuro wanted to hold off on AEDs until EMU visit at [facility] (for spell capture/classification) -pt was previously on Depakote 500 mg BID (worked well but was stopped 2/2 ? concern) -pt was started on start topamax 25mg daily for migraines -EEG Oct 2018: PDR 10-11 Hz, generalized intermittent 4-5 Hz slowing suggestive of encephalopathy, no focal slowing or epileptiform discharges, no electrographic seizures noted -MRI Brain Oct 2018 [place] [place] No T2 hyperintensities noted, acute or chronic strokes, no mesial temporal sclerosis, normal cerebellar tonsils EEG today normal Neuro saw patient who was without neuro abnormality, patient does not like topamax so that was discontinued, Dr. Salas recommending NO antiseizure medications until patient can be evaluated at [facility] continuous seizure monitoring unit Patient is medically cleared Suicidal Ideations Patient actively suicidal hearing voices and agitated and wandering halls looking in patient rooms, Code randhawa called around 16:30 Patient continued to be upset and attempted to open window to jump out and atte mpted to self harm with component of bathroom door she disassembled Patient received 5mg IM haldol x2 patient continues to be agitated -Psych liaison nurse actively looking for bed will contact [facility] first -Suicide precautions Will give chemical sedation as needed, would like to avoid physical restraints if possible Polysubstance Abuse -UDS: Positive for MJ -recent hospitalization at [facility] [place] for respiratory arrest 2/2 heroin/meth/marijuana overdose FEN/GI: Regular. Safe Tray. DVT PPx: not indicated, ambulatory Full Code Dispo: Med-Tele, urgently searching for inpatient psych placement. Medically cleared Supervising Physician Co-Signing Physician Notes I personally examined the patient and verified all jarrett points of history and exam, discussed case, and agree with decision making with Dr Barraza. calm, awake, making some clever and sarcastic jokes. appreciates help. und erstands need for psych and video eeg. vitals noted fatigued appearing but nad. heent nc at mmm. breathing unlabored. no focal neuro deficits. depression/suicidality - 302, 1:1 for safety. await placement at psych facility. seizure vs PNES - for video EEG monitoring as soon as can be arranged. will work w psych on urgency for inpt psych vs EEG monitoring - suspect psych stay first, but continue to follow otherwise as above Subjective Ms. Don has become increasingly agitated, paul randhawa called at 4:30 pm and patient demanded to leave, tried to open a window and jump out, wandered the halls looking for a way to get out. Patient was able to be redirected and went back to her room. She then took a portion of her bathroom door off and tried to self harm with it. She is endorsing hearing voices that nobody else can hear and she is endorsing active suicidality and attempting to self harm. Patient was given IM haldol 5 mg x2 302 was completed and psych liaison nurse was contacted for arranging transport to facility Review of Systems Review of Systems: Unobtainable due to mental health condition Physical Exam Constitutional: well developed, well nourished and + obese; no acute distress Acutely agitated, walking around halls, trying to get out window ENMT: external ear and nose normal, oropharynx normal Neck: normal visual inspection Respiratory: normal respiratory effort, lungs clear to auscultation Cardiovascular: RRR, no murmur, no edema Gastrointestinal (Abdomen): normal bowel sounds, soft, nontender, no hepatosplenomegaly Skin: About 2 dozen self harm scars on her right thigh appear to be partially healed cuts through dermis with sharp blade Results & Data Vital Signs (Past 12 Hours) Vital Signs Temp Pulse Pulse Pulse Resp BP Pulse Ox 03/02/19 14:59 74 18 113/63 96 03/02/19 12:00 36.9 C 83 18 123/82 96 03/02/19 07:04 80 Resident Activity Tracking Resident Involvement: Resident Care Provided Care Provided: Adult Hospital Medicine
--- NOTE | 2019-03-02 23:08 | Electrocardiogram Report ---
Test Reason : Blood Pressure : / mmHG Vent. Rate : 087 BPM Atrial Rate : 087 BPM P-R Int : 152 ms QRS Dur : 084 ms QT Int : 352 ms P-R-T Axes : 031 020 033 degrees QTc Int : 423 ms Normal sinus rhythm Normal ECG When compared with ECG of 14-FEB-2019 20:10, No significant change was found Confirmed by Rk Dang ([id number]) on 03/02/2019 11:08:15 PM Referred By: REFERRED SELF Confirmed By:Rk Dang
--- NOTE | 2019-03-03 05:12 | Billing Data ---
Date of Service March 03, 2019 Coding Level of Care Code 15556 Initial Inpt Care Lvl 3
[2019-03-03] MEDS: TOPIRAMATE 25 MG TAB PO SCH (08:26)
[2019-03-03] MEDS ORDERED: HALOPERIDOL LACTATE 5 MG/ML 1 ML VIAL ONE (10:15)
[2019-03-03] MEDS ORDERED: HALOPERIDOL LACTATE 5 MG/ML 1 ML VIAL IM STA ×2 (10:15→21:09)
[2019-03-03] MEDS: LORazepam 2 MG/4 ML VIAL IV PRN ×3 (13:20→19:11)
[2019-03-03] MEDS ORDERED: BACITRACIN OINT 0.9 GM PKT EXT PRN (13:36)
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
--- NOTE | 2019-03-03 16:45 | Billing Data ---
Date of Service March 03, 2019 Coding Level of Care Code 53420 OBS Care - Level 2
[2019-03-03] MEDS ORDERED: Nursing to Pharmacy Communication ONE (20:13)
[2019-03-03] MEDS ORDERED: BACITRACIN OINT 15 GM TUBE EXT PRN (20:21)
[2019-03-03] MEDS ORDERED: LORazepam 2 MG/4 ML VIAL IV PRN (21:01)
[2019-03-03] MEDS ORDERED: LORazepam 1 MG/2 ML VIAL IV STA (21:09)
[2019-03-04] MEDS ORDERED: LORazepam 2 MG/4 ML VIAL IV PRN (06:24)
[2019-03-04 07:37] LABS: Marijuana Quant, GCMS Urine 20 ng/mL (<5)
[2019-03-04] MEDS: TOPIRAMATE 25 MG TAB PO SCH (08:47)
--- NOTE | 2019-03-04 11:44 | Hospitalist Progress Note ---
Date of Service March 04, 2019 Assessment & Plan (1) Seizure-like activity: 18 yo transgender man with PMH of asthma, PCOS, PTSD, seizure disorder, and polysubstance abuse presents with concerns of CP (workup neg), questionable seizure like activity while in ED, and admission to some passive suicidal ideations. Seizure-like Activity -Pt follows with Dr. Salas. Last seen Feb 17, 2019. -Notes that these recurrent spells of LOC with convulsive movements most likely suggestive of psychogenic nonepileptic seizures -pt's Keppra was not refilled as Neuro wanted to hold off on AEDs until EMU visit at [facility] (for spell capture/classification) -pt was previously on Depakote 500 mg BID (worked well but was stopped 2/2 ? concern) -pt was started on start topamax 25mg daily for migraines but did not like the way it made her feel and stopped -EEG Oct 2018: PDR 10-11 Hz, generalized intermittent 4-5 Hz slowing suggestive of encephalopathy, no focal slowing or epileptiform discharges, no electrographic seizures noted -MRI Brain Oct 2018 ([facility] [place])- No T2 hyperintensities noted, acute or chronic strokes, no mesial temporal sclerosis, normal cerebellar tonsils EEG today normal Neuro saw patient who was without neuro abnormality, patient does not like topamax so that was discontinued, Dr. Salas recommending NO antiseizure medications until patient can be evaluated at [facility] continuous seizure monitoring unit Patient is medically cleared and can follow up as an outpatient for her video monitoring Suicidal Ideations Patient actively suicidal hearing voices and agitated and wandering halls becoming very difficult for nursing to handle despite excellent efforts of care in a non locked nit Patient was upset on 03/02 evening and attempted to open window to jump out and attempted to self harm with component of bathroom door she disassembled Patient has been receiving one time doses of IM haldol for agitation -Psych liaison nurse actively looking for bed -Suicide precautions Will give chemical sedation as needed, would like to avoid physical restraints if possible Patient extremely aggressive when being read rights threatening physical violence Patient will need psychiatridc placement in locked unit with suicide and elopement precautions Polysubstance Abuse -UDS: Positive for MJ -recent hospitalization at [facility] Oct 2018 for respiratory arrest 2/2 heroin/meth/marijuana overdose FEN/GI: Regular. Safe Tray. DVT PPx: not indicated, ambulatory Full Code Dispo: Med-Tele, urgently searching for inpatient psych placement. Medically cleared Supervising Physician Co-Signing Physician Notes I personally examined the patient and verified all jarrett points of history and exam, discussed case, and agree with decision making with Dr Lucia. awake and calm. no new problems when i saw her - dr lucia saw again later in follow up for somatic complaints. vitals noted fatigued appearing but nad. heent nc at mmm. breathing unlabored. no focal neuro deficits. depression/suicidality - 302, 1:1 for safety. stable for placement at psych facility. seizure vs PNES - for video EEG monitoring as soon as can be arranged. has been referred to [facility] neurology for this - as best i can tell not yet scheduled - but clearly psychiatric needs taking precedence/priority in current situation. otherwise as above Subjective Patient is groggy this am. No acute complaints. Review of Systems Review of Systems: All systems reviewed & are unremarkable except as noted in HPI & below Physical Exam Constitutional: WD/WN, vitals as above Eyes: PERRL, conjunctivae normal, anicteric sclerae ENMT: external ear and nose normal, oropharynx normal Neck: trachea midline, no thyromegaly Musculoskeletal: no cyanosis or clubbing, extremities motor strength 5/5 Skin: no rashes, warm and dry Psychiatric: Orientation: alert and oriented x 3 Resident Activity Tracking Resident Involvement: Resident Care Provided Care Provided: Adult Hospital Medicine
[2019-03-04] MEDS: LORazepam 1 MG TAB PO STA ×2 (13:30→14:01)
[2019-03-04] MEDS ORDERED: PANTOprazole 40 MG TAB PO STA (15:13)
[2019-03-04] MEDS ORDERED: ALUMINUM/MAGNESIUM SUSP 30 ML UDC PO STA (15:13)
[2019-03-04] MEDS ORDERED: ONDANSETRON 4 MG OD TAB PO STA (15:13)
[2019-03-04] MEDS ORDERED: LORazepam 1 MG TAB PO STA (15:17)
[2019-03-04] MEDS ORDERED: FAMOTIDINE 20MG IV PUSH 20 MG/5 ML SYR IV STA (15:21)
[2019-03-04] MEDS ORDERED: ONDANSETRON INJ 2 MG/ML 2 ML VIAL IV STA (15:21)
[2019-03-04] MEDS ORDERED: LORazepam 1 MG/2 ML VIAL IV STA (15:22)
--- NOTE | 2019-03-04 16:59 | Discharge Summary ---
Date of Service March 04, 2019 Admission HPI Per Admitting Provider "Willie" (Andres Don is a 18-year-old transgender male (biological female) admitted medically on 03/01/2019 for continued monitoring/evaluation of seizure- like activity. While in the ED, it is reported that the patient verbalized SI with intent to end his life by cutting his wrist. He admitted to numerous suicide attempts previous via cutting, overdose, and holding loaded guns to his head - multiple attempts reportedly interrupted by friends or family members. 302 petitioning statement was completed by ED psychiatric behavioral health case manager, which reads: "Pt states she is suicidal with a plan to end her life by slicing her wrists. Pt states she has "many blades" at home to use to "cut myself to bleed out." Pt admits to a history of schizophrenia. Pt states she is hearing voices that are telling her to end her life. Pt admits to a history of past suicide attempts. Pt admits to a history of inpatient mental health treatment. Pt states she hasn't been on any psychiatric meds for appx: 6 months." Psychiatric consultation was requested during medical admission to evaluate patient for suicidal ideation, and provide recommendations regarding treatment recommendations. Patient is cooperative with psychiatric evaluation. He provides verbal consent to allow Candice Valdez PA-C to observe today's encounter - also giving verbal consent to allow "wagner Alejandre to remain in room during conversation. Pt states that he presented to the ED with his fiance for evaluation of chest pain, but had a seizure-like event while being evaluated. He states that he does not remember specifics of the situation, but was told that he had verbalized suicidal ideation and showed the nurses areas of recent SIB by cutting to upper right thigh. Pt states, "they said I was suicidal and that I lost control." Pt does admit "yes, I am chronically depressed. Yes, I am chronically anxious. I'm not going to lie and say I don't want to kill myself, but I also know I have people that care about me." Pt admits to a rather chaotic upbringing, as he has little to no contact with family member and admits that most recently he has been living "in a drug house." Pt states he moved 2.5 hours (likely from [facility]) to be here with his fiance. He admits he is to start a new job at [employer] tomorrow and "all of this makes me feel like a failure, like I can do anything without messing it all up." Pt reports several significant stressors, which include recent fight with sister cutting off all communication, being told he is not able to enroll in local schooling to finish his high school degree, and chronic chaos within his nuclear family. Pt does admit to increased substance use "over the past couple months", which living in the [place] area. Pt states he is not presently working with any outpatient psychiatric providers, having most recently been seen at [facility] in [place]. He states he has not been taking medications in over a year and is unable to recall past medication trials, simply stating "I've been on the whole pharmacy, you'll just have to start experimenting again." He admits to recurrence of auditory hallucinations as well, stating "I've heard voices my whole life, I describe it as a personal symphony that's with me all the time." Pt admits that the voices tell him to harm himself, and that "If I don't listen, they only get louder." Pt does request that his fiance step out of the room at one point during our interview. He discloses that he is aware his mental health has been deteriorating, but that he is concerned about "always having to be the strong one", and that accepting help would be a sign of weakness. We discussed that recognizing the need for assistance is often the greatest sign of strength. He becomes tearful while expressing the severity of his depressive symptoms. He admits to daily SI with regular consideration to slit his wrists and bleed out. He admits to an episode of SIB by cutting 3 days ago, and that increased self- harm "usually leads up to me attempting suicide." He also admits to suicide attempts by holding loaded "45's" to his head on two occasions, only to be inter rupted by family members. While he admits he is not particularly thrilled about a recommendation for inpatient psychiatric treatment, he does understand why this may be beneficial and would be willing for an admission. Reviewed concerns regarding no professional outpatient supports and significant increase in outpatient stressors. Pt did share this recommendation with his fiance when she re-entered the room - who was supportive. Jacobo did express concern to this provider separately that "I'm worried he may get worse if he is made to stay inpatient for long." She did admit to concern related to depressive symptoms and SI, and said she would support inpatient patient if recommended. Admission Exam Per Admitting Provider Constitutional: WD/WN, vitals as above + obese Eyes: PERRL, conjunctivae normal, anicteric sclerae ENMT: external ear and nose normal, oropharynx normal Respiratory: normal respiratory effort, lungs clear to auscultation Cardiovascular: RRR, no murmur, no edema Gastrointestinal (Abdomen): normal bowel sounds, soft, nontender, no hepatosplenomegaly Skin: no rashes, warm and dry Neurologic: CN's II-XI intact bilaterally; no focal motor deficits Psychiatric: Affect: + anxious affect Principal Diagnosis Mood disorder Discharge Exam Constitutional WD/WN, vitals as above Eyes PERRL, conjunctivae normal, anicteric sclerae ENMT external ear and nose normal, oropharynx normal Neck trachea midline, no thyromegaly Respiratory normal respiratory effort, lungs clear to auscultation Cardiovascular RRR, no murmur, no edema Gastrointestinal (Abdomen) Inspection/Auscultation: + abdomen abnormal to inspection and abdomen not distended Percussion/Palpation: + abdomen tender (diffusely ); no guarding Musculoskeletal no cyanosis or clubbing, extremities motor strength 5/5 Skin no rashes, warm and dry Neurologic PERRL, EOMI, accommodation nl, no face palsy, no dysarthria Discharge Data Allergies Allergy/AdvReac Type Severity Reaction Status Date / Time bee venom protein (honey bee) Allergy Severe Anaphylaxis Verified 03/01/19 23:13 Penicillins Allergy Severe Itchiness Verified 03/01/19 23:13 latex Allergy Intermediate Skin Tony Verified 03/01/19 23:13 Consultations 03/02/19 00:13 ED Decision to Admit Stat 03/02/19 04:38 Consult Neurology Routine Consult Psychiatry Routine Hospital Course (1) Suicidal thoughts: 18 yo transgender man with PMH of asthma, PCOS, PTSD, seizure disorder, and polysubstance abuse presents with concerns of chest pain (workup neg), questionable seizure like activity while in ED, and admission to some passive suicidal ideations. Suicidal Ideations/PTSD/Mood disorder -Periods of severe anxiety--Patient actively suicidal, hearing voices, agitated and wandering halls. Other times, the patient is calm and appropriate -Evening of 03/02, attempted to open window to jump out. Also attempted to self harm with component of bathroom door she disassembled. Became physically aggressive, but no violence directed at staff -Received Ativan 1-2 mg Q4 hours Scheduled as well Haldol 5 mg for acute anxiety/agitation on two occasions -Psych consulted, remained on regular medical floor with suicide precautions with plan to transfer to inpatient psychiatry facility Dyspepsia -Continue Zofran ODT 4mg every 4 hours, continue Pepcid 20 mg PO BID *Please Note--The afternoon prior to discharge, the patient was experiencing an episode of acute anxiety and complained of severe abdominal pain saying that his "stomach ulcers had popped". The patient described a bloody bowel movement, but the personal aid that was watching the patient and was with him at all times, denied him having a bowel movement at all. With the questionable history and stable exam/vital signs, we treated the patient supportively for with pepcid, maalox, zofran for abdominal pain/nasuea and gave the patient an additional dose of ativan for anxiety. While there is low suspicion of GI bleed, we advise to follow symptoms and bowel movements and if the patient shows any signs of bloody bowel movements or hemodynamic instability, to please have the patient return to the hospital. Psychogenic nonepileptic seizures, longstanding, previous work up -Pt follows with Dr. Salas. Last seen Feb 17, 2019. -Seen by neurology during this hospitalization---normal EEG during this hospitalization, recommend discontinuing topiramate (originally on for migraines) -Neurology notes that these recurrent spells of LOC with convulsive movements most likely suggestive of psychogenic nonepileptic seizures. -Previously on Depakote 500 mg BID, but was not refilled as Neuro wanted to hold off on AEDs until EMU visit at [facility] (for spell capture/classification) -EEG Oct 2018: PDR 10-11 Hz, generalized intermittent 4-5 Hz slowing suggestive of encephalopathy, no focal slowing or epileptiform discharges, no electrographic seizures noted -MRI Brain Oct 2018 ([facility] [place])- No T2 hyperintensities noted, acute or chronic strokes, no mesial temporal sclerosis, normal cerebellar tonsils -Patient is medically cleared and can follow up as an outpatient for video monitoring Polysubstance Abuse -UDS: Positive for MJ -recent hospitalization at [facility] Oct 2018 for respiratory arrest 2/2 heroin/meth/marijuana overdose (2) Seizure-like activity: (3) Mood disorder: (4) PTSD (post-traumatic stress disorder): Total Time Total Time Spent Total Time Spent (In Minutes): <30 Discharge Plan Discharge Items Patient Disposition: Transfer Behavioral Health Fac Reason For Visit: SEIZURE Discharge Diagnosis: Mood Disorder, Psuedoseizures Condition on Discharge: Good Activity: Resume your previous activity Non-emergency contact: Primary Care Provider and Psychiatrist Call non-emergency contact if: you have any medication questions Follow-up/Referrals: Emely Urrutia CRNP [Primary Care Provider] - Diet: Regular Addtl Attending Provider Instructions: 18 yo transgender man with PMH of asthma, PCOS, PTSD, seizure disorder, and polysubstance abuse presents with concerns of chest pain (workup neg), questionable seizure like activity while in ED, and admission to some passive suicidal ideations. Suicidal Ideations/PTSD/Mood disorder -Periods of severe anxiety--Patient actively suicidal hearing voices and agitated and wandering halls. Other times, the patient is calm and appropriate -Evening of 03/02, attempted to open window to jump out. Also attempted to self harm with component of bathroom door she disassembled. Became physically aggressive, but no violence directed at staff -Received Ativan 1-2 mg Q4 hours Scheduled as well Haldol 5 mg for acute anxiety/agitation on two occasions -Psych consulted, remained on regular medical floor with suicide precautions with plan to transfer to inpatient psychiatry facility Dyspepsia -Continue Zofran ODT 4mg every 4 hours, continue Pepcid 20 mg PO BID *Please Note--The afternoon prior to discharge, the patient was experiencing an episode of acute anxiety and complained of severe abdominal pain saying that his "stomach ulcers had popped". The patient described a bloody bowel movement, but the personal aid that was watching the patient and was with him at all times, denied him having a bowel movement at all. With the questionable history and stable exam/vital signs, we treated the patient supportively for with pepcid, maalox, zofran for abdominal pain/nasuea and gave the patient an additional dose of ativan for anxiety. While there is low suspicion of GI bleed, we advise to follow symptoms and bowel movements and if the patient shows any signs of bloody bowel movements or hemodynamic instability, to please have the patient return to the hospital. Psychogenic nonepileptic seizures, longstanding, previous work up -Pt follows with Dr. Salas. Last seen Feb 17, 2019. -Seen by neurology during this hospitalization---normal EEG during this hospitalization, recommend discontinuing topiramate (originally on for migraines) -Neurology notes that these recurrent spells of LOC with convulsive movements most likely suggestive of psychogenic nonepileptic seizures. -Previously on Depakote 500 mg BID, but was not refilled as Neuro wanted to hold off on AEDs until EMU visit at [facility] (for spell capture/classification) -EEG Oct 2018: PDR 10-11 Hz, generalized intermittent 4-5 Hz slowing suggestive of encephalopathy, no focal slowing or epileptiform discharges, no electrographic seizures noted -MRI Brain Oct 2018 ([facility] [place])- No T2 hyperintensities noted, acute or chronic strokes, no mesial temporal sclerosis, normal cerebellar tonsils -Patient is medically cleared and can follow up as an outpatient for video monitoring Polysubstance Abuse -UDS: Positive for MJ -recent hospitalization at [facility] Oct 2018 for respiratory arrest 2/2 heroin/meth/marijuana overdose Pending Studies at Discharge: No Stand-Alone Forms: My [facility] Medications and DC Order Prescriptions: New famotidine [Pepcid] 20 mg tablet 20 mg PO BID 28 Days Qty: 56 RF: 0 ondansetron HCl [Zofran] 4 mg tablet 4 mg PO Q6H PRN (Reason: nausea and vomiting) Qty: 30 RF: 0 Continued epinephrine [EpiPen] 0.3 mg/0.3 mL Auto-Injector 0.3 mg IM DIRECTED PRN (Reason: Anaphylaxis) RF: 0 Discontinued topiramate 25 mg tablet 25 mg PO DAILY Qty: 30 RF: 0 levetiracetam 500 mg tablet 500 mg PO BID RF: 0 gabapentin 300 mg capsule 300 mg PO BID RF: 0 Discharge Orders: Discharge Order (Routine); Ordered 03/04/19 Ordered By: Alexi Lucia Admission Data Admit Date/Time: 03/04/19 08:59 Attending Provider: Harsha Blanc Admit Provider: Flako Soto Primary Care Provider: Emely Urrutia Other Providers: Armond Redman ; Jm Hernandes III ; Valeria Lawrence Other Interventions: Discharge Summary Assessment (RN) Last Done: 03/04/19 17:53 Supervising Physician Co-Signing Physician Notes I personally examined the patient and verified all jarrett points of history and exam, discussed case, and agree with decision making with Dr Lucia. awake and calm. no new problems when i saw her - dr lucia saw again later in follow up for somatic complaints. vitals noted fatigued appearing but nad. heent nc at mmm. breathing unlabored. no focal neuro deficits. depression/suicidality - 302, 1:1 for safety. stable for placement at psych facility. seizure vs PNES - for video EEG monitoring as soon as can be arranged. has been referred to [facility] neurology for this - as best i can tell not yet scheduled - but clearly psychiatric needs taking precedence/priority in current situation. otherwise as above Resident Activity Tracking Resident Involvement: Resident Care Provided Care Provided: Adult Hospital Medicine
[2019-03-04] MEDS ORDERED: LORazepam 1 MG/2 ML VIAL IV ONE (18:30)
--- NOTE | 2019-03-09 14:10 | Billing Data ---
Date of Service March 04 2019 Coding Level of Care Code D/C Day Management <30 mins
== END 2019-03-04 18:42 | DRG 101 ==
LOC: 2W 21:27 → ED 21:27 → SUATTDRO 03-02 04:06 → 2W 03-02 04:28

== ENCOUNTER 2019-03-29 18:32 | Observation (INO) ==
[2019-03-29] MEDS ORDERED: ONDANSETRON INJ 2 MG/ML 2 ML VIAL IV STA (18:41)
[2019-03-29] MEDS ORDERED: LORazepam 1 MG/2 ML VIAL IV STA ×4 (18:43→19:43)
[2019-03-29] MEDS ORDERED: SODIUM CHLORIDE 0.9% 1000ML 1,000 ML IV SCH (18:45)
[2019-03-29] MEDS ORDERED: FOSPHENYTOIN IV STA (19:08)
[2019-03-29] MEDS ORDERED: MGPE IV STA (19:08)
[2019-03-29] MEDS ORDERED: SODIUM CHLORIDE 0.9% IV STA (19:08)
[2019-03-29 19:34] LABS: Basophils # (auto) 0.02 K/uL (0-0.2); Basophils % (auto) 0.2 %; Eosinophils # (auto) 0.16 K/uL (0-0.5); Eosinophils % (auto) 1.5 %; Hematocrit (blood only) 41.7 % (37-47); Hemoglobin 13.9 g/dL (12.0-16.0); Immature Granulocytes # (auto) 0.02 K/uL (0.00-0.02); Immature Granulocytes % (auto) 0.2 %; Lymphocytes # (auto) 2.71 K/uL (1.2-3.4); Lymphocytes % (auto) 25.8 %; Mean Corpuscular Hemoglobin 29.6 pg (25-34); Mean Corpuscular Hgb Conc 33.3 g/dL (32-36); Mean Corpuscular Volume 88.7 fL (80-100); Monocytes # (auto) 0.72 K/uL (0.11-0.59); Monocytes % (auto) 6.9 %; Neutrophils # (auto) 6.86 K/uL (1.4-6.5); Neutrophils % (auto) 65.4 %; Platelet Count 318 K/uL (130-400); RDW Coefficient of Variation 13.5 % (11.5-14.5); RDW Standard Deviation 43.9 fL (36.4-46.3); White Blood Count 10.49 K/uL (4.8-10.8)
[2019-03-29 19:53] LABS: Albumin Level 3.9 gm/dl (3.4-5.0); BUN Creatinine Ratio 20.2 (10-20); Calcium 8.6 mg/dl (8.5-10.1); Creatinine Clr Calc Pharmacy 181.3 ml/min; Est GFR (African American) 145.6; Est GFR (Non-African American) 125.6; Magnesium 1.8 mg/dl (1.8-2.4); Potassium 3.8 mmol/L (3.5-5.1)
[2019-03-29 20:04] LABS: Bilirubin,Total 0.2 mg/dl (0.2-1); Thyroid Stimulating Hormone 3.55 uIu/ml (0.300-4.500); Total Protein 7.9 gm/dl (6.4-8.2)
--- NOTE | 2019-03-29 20:06 | Emergency Department Note ---
Entered by Fred Bergman acting as a scribe for History of Present Illness General Chief complaint: Seizure Stated complaint: SEIZURE, BEE STING Time Seen by Provider: 03/29/19 18:41 Source: patient History of Present Illness Onset (ago): minute(s) ([employer]) Severity: similar to prior episodes (3 minutes and after hitting her head) Pain Consistency: + now resolved Quality: + other (seizure) Exacerbated By: + other (not taking her medication) Associated symptoms: + other (hitting her head) The patient is a 18 y/o female who presents to the ED w/ CC of two resolved seizures the occurred [employer]. EMS states the patient was at [facility] when she started to have a seizure. They report the patient had a BP of 123/90, O2 Sat of 100, and a respiratory rate of 25. EMS notes the patient had a three minute seizure where she was shaking and gazing to the left. They state the patient's O2 sat dropped to 92, so she was placed on 2L of O2. EMS reports the patient then had a two minute break and broke into another seizure. They note at that time the patient was given 2mg of IM Ativan. EMS states the patient has a history of seizures and felt it coming on. Additionally, EMS reports she witnessed a "methamphetamine deal" just prior to her seizure. Patient also believes she was stung by a bee just before her seizure--she was stung on the right forearm. The patient states she has a history of seizures and takes 1000mg of Keppra twi ce daily. She reports she also has PRN Ativan for her seizures. The patient notes for the past two days, she has not taken either medication because she is out of both of them. She states she fell at work today because the floor was wet and hit her head. The patient reports she normally has a seizure after hitting her head. She notes this believes her seizure was caused by her fall and being stung by a bumble bee. The patient states she is allergic to some bees, but not bumble bees. She reports she normally gets her seizures weekly, and currently has a stiff neck which is usual after a seizure. The patient notes she has not eaten since this morning and has not kept up with her fluids. She states Dr. Salas is her neurologist. Home Medications Home Medications Medication Instructions Recorded Confirmed Type epinephrine [EpiPen] 0.3 mg IM DIRECTED PRN 02/14/19 03/29/19 History haloperidol 5 mg PO TID 03/23/19 03/29/19 History levetiracetam 1,000 mg PO DAILY 03/23/19 03/29/19 History metformin 500 mg PO BID 03/23/19 03/29/19 History benztropine 0.5 mg PO TID 03/29/19 03/29/19 History docusate sodium 100 mg PO BID 03/29/19 03/29/19 History famotidine 20 mg PO BID 03/29/19 03/29/19 History gabapentin 300 mg PO BID 03/29/19 03/29/19 History levetiracetam 500 mg PO DAILY 03/29/19 03/29/19 History ondansetron HCl 4 mg PO Q6H PRN 03/29/19 03/29/19 History sennosides [senna] 8.6 mg PO HS 03/29/19 03/29/19 History Allergies Allergy/AdvReac Type Severity Reaction Status Date / Time bee venom protein (honey bee) Allergy Severe Anaphylaxis Verified 03/29/19 21:49 Penicillins Allergy Severe Itchiness Verified 03/29/19 21:49 latex Allergy Intermediate Skin Tony Verified 03/29/19 21:49 Past Med/Surg History Medical History Asthma Migraine without aura PCOS (polycystic ovarian syndrome) PTSD (post-traumatic stress disorder) Surgical History No pertinent past surgical history S/P appendectomy S/P cholecystectomy S/P tonsillectomy Family History Mother Hypertension Diabetes Father Epilepsy Other No significant family history Social History Preferred Language: Urdu Beliefs That Will Affect Care: None Current Living Situation: Spouse current occupational status: unemployed current occupation: Starts at [employer] tomorrow. Feels Safe at Home: Yes Smoking Status: Current every day smoker Tobacco Type: cigarettes ; Cigarettes Per Day: 10 ; Second Hand Exposure: Yes ; Hx Alcohol Use: No Hx Substance Use: Yes substance use type: marijuana and methamphetamine Subs tance Use Type Other:: meth last used 01/21/2019 Last Used Substance: Days (ago) Review of Systems See HPI for pertinent positives & negatives. and A total of 10 systems reviewed and were otherwise negative Physical Exam Vital Signs Vital Signs - 24 hr 03/29/19 18:24 03/29/19 18:41 03/29/19 19:35 Pulse Rate 90 Pulse Rate [Right Finger] Pulse Rate from SpO2 Sensor Pulse Rhythm Regular Pulse Strength Normal Respiratory Rate 22 Respiratory Effort / Characteristics Non-Labored Spontaneous Respiratory Depth Normal Respiratory Pattern Regular Blood Pressure 108/92 Blood Pressure [Right Arm] Blood Pressure Mean 97 Blood Pressure Mean [Right Arm] Blood Pressure Position Lying Blood Pressure Position [Right Arm] Pulse Oximetry 97 97 98 Oxygen Delivery Method Room Air Nasal Cannula Nasal Cannula Oxygen Flow Rate 3 2 Sepsis Recent Fever Within 48 Hours No Sepsis New/Unexplained Change in Mental Status No Sepsis Action Taken by Nursing No Action Required 03/29/19 19:42 03/29/19 20:04 03/29/19 20:11 Pulse Rate 110 H 93 H 87 Pulse Rate [Right Finger] Pulse Rate from SpO2 Sensor 101 H 88 88 Pulse Rhythm Pulse Strength Respiratory Rate 18 18 20 Respiratory Effort / Characteristics Respiratory Depth Respiratory Pattern Blood Pressure 117/78 141/91 H 156/88 H Blood Pressure [Right Arm] Blood Pressure Mean 101 115 113 Blood Pressure Mean [Right Arm] Blood Pressure Position Blood Pressure Position [Right Arm] Pulse Oximetry 100 97 100 Oxygen Delivery Method Oxygen Flow Rate Sepsis Recent Fever Within 48 Hours Sepsis New/Unexplained Change in Mental Status Sepsis Action Taken by Nursing 03/29/19 20:20 03/29/19 20:21 03/29/19 20:30 Pulse Rate 90 86 Pulse Rate [Right Finger] 88 Pulse Rate from SpO2 Sensor 89 86 Pulse Rhythm Pulse Strength Respiratory Rate 22 22 Respiratory Effort / Characteristics Non-Labored Spontaneous Respiratory Depth Normal Respiratory Pattern Regular Blood Pressure 135/76 Blood Pressure [Right Arm] 140/78 Blood Pressure Mean 95 Blood Pressure Mean [Right Arm] 98 Blood Pressure Position Blood Pressure Position [Right Arm] Lying Pulse Oximetry 100 98 99 Oxygen Delivery Method Nasal Cannula Nasal Cannula Oxygen Flow Rate 2 2 Sepsis Recent Fever Within 48 Hours Sepsis New/Unexplained Change in Mental Status Sepsis Action Taken by Nursing 03/29/19 20:45 03/29/19 20:50 03/29/19 21:00 Pulse Rate 90 110 H 89 Pulse Rate [Right Finger] Pulse Rate from SpO2 Sensor 90 111 H 91 H Pulse Rhythm Pulse Strength Respiratory Rate 22 23 Respiratory Effort / Characteristics Respiratory Depth Respiratory Pattern Blood Pressure 136/77 149/109 H Blood Pressure [Right Arm] Blood Pressure Mean 88 131 Blood Pressure Mean [Right Arm] Blood Pressure Position Blood Pressure Position [Right Arm] Pulse Oximetry 99 98 98 Oxygen Delivery Method Nasal Cannula Room Air Oxygen Flow Rate 2 Sepsis Recent Fever Within 48 Hours Sepsis New/Unexplained Change in Mental Status Sepsis Action Taken by Nursing 03/29/19 21:15 03/29/19 21:20 03/29/19 21:30 Pulse Rate 85 85 103 H Pulse Rate [Right Finger] Pulse Rate from SpO2 Sensor 85 85 101 H Pulse Rhythm Pulse Strength Respiratory Rate 20 24 Respiratory Effort / Characteristics Respiratory Depth Respiratory Pattern Blood Pressure 163/95 H 152/87 H Blood Pressure [Right Arm] Blood Pressure Mean 106 108 Blood Pressure Mean [Right Arm] Blood Pressure Position Blood Pressure Position [Right Arm] Pulse Oximetry 97 98 96 Oxygen Delivery Method Room Air Room Air Oxygen Flow Rate Sepsis Recent Fever Within 48 Hours Sepsis New/Unexplained Change in Mental Status Sepsis Action Taken by Nursing 03/29/19 21:40 03/29/19 21:46 03/29/19 22:00 Pulse Rate 89 84 92 H Pulse Rate [Right Finger] Pulse Rate from SpO2 Sensor 90 86 94 H Pulse Rhythm Pulse Strength Respiratory Rate 22 22 22 Respiratory Effort / Characteristics Respiratory Depth Respiratory Pattern Blood Pressure 124/81 124/81 144/82 H Blood Pressure [Right Arm] Blood Pressure Mean 95 91 102 Blood Pressure Mean [Right Arm] Blood Pressure Position Blood Pressure Position [Right Arm] Pulse Oximetry 98 96 95 Oxygen Delivery Method Room Air Room Air Room Air Oxygen Flow Rate Sepsis Recent Fever Within 48 Hours Sepsis New/Unexplained Change in Mental Status Sepsis Action Taken by Nursing 03/29/19 22:15 03/29/19 22:30 Pulse Rate 83 97 H Pulse Rate [Right Finger] Pulse Rate from SpO2 Sensor 84 97 H Pulse Rhythm Pulse Strength Respiratory Rate 24 20 Respiratory Effort / Characteristics Respiratory Depth Respiratory Pattern Blood Pressure 139/91 136/80 Blood Pressure [Right Arm] Blood Pressure Mean 95 91 Blood Pressure Mean [Right Arm] Blood Pressure Position Blood Pressure Position [Right Arm] Pulse Oximetry 98 95 Oxygen Delivery Method Room Air Room Air Oxygen Flow Rate Sepsis Recent Fever Within 48 Hours Sepsis New/Unexplained Change in Mental Status Sepsis Action Taken by Nursing GENERAL: Patient is in no acute distress. HEENT: No acute trauma, normocephalic atraumatic, mucous membranes moist, no nasal congestion, no scleral icterus. No scalp hematoma. NECK: No stridor, no adenopathy, no meningismus, trachea is midline. LUNGS: Clear to auscultation bilaterally, no wheeze, no rhonchi, breath sounds equal. HEART: Without murmurs gallops or rubs, regular rate and rhythm. ABDOMEN: Soft, nontender, bowel sounds positive, no hernias, no peritonitis. EXTREMITIES: No cyanosis or edema, full range of motion of all the joints without pain or difficulty, small possible bee sting on the right lateral fo rearm. No surrounding erythema. NEUROLOGIC: Oriented x 3, no acute motor or sensory deficits, no focal weakness. SKIN: No rash, no jaundice, no diaphoresis. Course Course 1830: Past medical records reviewed. The patient was evaluated in room C03. A complete history and physical exam was performed. 1857: The patient had his third seizure since my first evaluation. The patient looked off to the left and had an arched back. The patient became tachycardic. 1909: I discussed the adriantent's case with Dr. Salas, [facility] Neu[facility]. She recommends the patient be transferred to a tertiary care center for continuous EEG monitoring. 2123: I discussed the patient's case with Dr. Garay, [facility]. [facility] does not have any available beds at the moment and currently has two seizure patient's waiting in the ER for beds. 2137: Upon reevaluation, the patient is resting comfortably. I discussed laboratory and radiographic results with the patient's significant other. She verbalized agreement of the treatment plan. The patient will be evaluated for further management and care. 2200: I reviewed the patient's case with Dr. Redman, [facility] Hospitalist. He will evaluate the patient for further management. Administered Medications Discontinued Medications Haloperidol Lactate (Haldol) 5 mg IV NOW STA Stop: 03/29/19 20:31 Last Admin: 03/29/19 21:41 Dose: 5 mg Documented by: [id number] Sodium Chloride (Nss 1000ml) 1,000 mls @ 999 mls/hr IV .Q1H1M HETAL Stop: 03/29/19 19:45 Last Infusion: 03/29/19 20:13 Dose: 0 mls/hr Documented by: [id number] Admin: 03/29/19 19:20 Dose: 999 mls/hr Documented by: [id number] Levetiracetam 1,000 mg/ (Dextrose) 110 mls @ 440 mls/hr IV NOW STA Stop: 03/29/19 18:55 Last Infusion: 03/29/19 20:13 Dose: 0 mls/hr Documented by: [id number] Admin: 03/29/19 19:18 Dose: 440 mls/hr Documented by: [id number] Lorazepam (Ativan) 1 mg in 2 mls @ 2 mls/min IV NOW STA Stop: 03/29/19 18:44 Last Admin: 03/29/19 18:52 Dose: 2 mls/min Documented by: [id number] Lorazepam (Ativan) 1 mg in 2 mls @ 2 mls/min IV NOW STA Stop: 03/29/19 18:55 Last Admin: 03/29/19 18:57 Dose: 2 mls/min Documented by: [id number] Lorazepam (Ativan) 1 mg in 2 mls @ 2 mls/min IV NOW STA Stop: 03/29/19 19:03 Last Admin: 03/29/19 18:59 Dose: 2 mls/min Documented by: [id number] Fosphenytoin Sodium 1,500 mgpe (/ Sodium Chloride) 130 mls @ 10 mls/min IV NOW STA Stop: 03/29/19 19:20 Last Infusion: 03/29/19 20:12 Dose: 0 mls/min Documented by: [id number] Admin: 03/29/19 19:25 Dose: 10 mls/min Documented by: [id number] Lorazepam (Ativan) 1 mg in 2 mls @ 2 mls/min IV NOW STA Stop: 03/29/19 19:44 Last Admin: 03/29/19 19:45 Dose: 2 mls/min Documented by: [id number] Ondansetron HCl (Zofran) 4 mg IV NOW STA Stop: 03/29/19 18:42 Last Admin: 03/29/19 19:44 Dose: 4 mg Documented by: [id number] Critical Care Time Critical Care Time: Yes Total Critical Care Time: 46 I have personally spent 46 minutes of critical care time in the direct management of this patient. This includes bedside care, interpretation of diagnostic studies, and testing, discussion with consultants, patient, and family members, and other required patient management activities. This 46 minutes is in excess of all separately billable procedures. Medical Decision Making Differential Diagnosis Differential diagnosis includes: missed medication dosing, intracranial bleeding, c-spine injury, infection, electrolyte imbalance, anaphylaxis, drug abuse, alcohol abuse. Medical Records Attestation: I reviewed the patient's medical records. Home Medications Current Medication List: was personally reviewed by me Laboratory Data Attestation: I reviewed the patient's lab results. Result diagrams: 03/29/19 19:25 03/29/19 19:24 Lab Results 03/29/19 03/29/19 03/29/19 Range/Units 19:24 19:25 19:25 WBC 10.49 (4.8-10.8) K/uL RBC 4.70 (4.2-5.4) M/uL Hgb 13.9 (12.0-16.0) g/dL Hct 41.7 (37-47) % MCV 88.7 (80-100) fL MCH 29.6 (25-34) pg MCHC 33.3 (32-36) g/dL RDW Std Deviation 43.9 (36.4-46.3) fL RDW Coeff of Alessandra 13.5 (11.5-14.5) % Plt Count 318 (130-400) K/uL MPV 11.0 H (7.4-10.4) fL Immature Gran % (Auto) 0.2 % Neut % (Auto) 65.4 % Lymph % (Auto) 25.8 % [place] % (Auto) 6.9 % Eos % (Auto) 1.5 % Baso % (Auto) 0.2 % Immature Gran # (Auto) 0.02 (0.00-0.02) K/uL Neut # (Auto) 6.86 H (1.4-6.5) K/uL Lymph # (Auto) 2.71 (1.2-3.4) K/uL [place] # (Auto) 0.72 H (0.11-0.59) K/uL Eos # (Auto) 0.16 (0-0.5) K/uL Baso # (Auto) 0.02 (0-0.2) K/uL Sodium 137 (136-145) mmol/L Potassium 3.8 (3.5-5.1) mmol/L Chloride 107 (98-107) mmol/L Carbon Dioxide 27 (21-32) mmol/L Anion Gap 3.0 (3-11) BUN 14 (7-18) mg/dl Creatinine 0.70 (0.6-1.2) mg/dl Est Cr Clr Drug Dosing 181.3 ml/min Est GFR ( Amer) 145.6 Est GFR (Non-Af Amer) 125.6 BUN/Creatinine Ratio 20.2 H (10-20) Glucose 97 (70-99) mg/dl Calcium 8.6 (8.5-10.1) mg/dl Magnesium 1.8 (1.8-2.4) mg/dl Total Bilirubin 0.2 (0.2-1) mg/dl AST 9 L (15-37) U/L ALT 18 (12-78) U/L Alkaline Phosphatase 94 (45-117) U/L Total Creatine Kinase 90 (26-192) U/L Total Protein 7.9 (6.4-8.2) gm/dl Albumin 3.9 (3.4-5.0) gm/dl Globulin 4.0 (2.5-4.0) gm/dl Albumin/Globulin Ratio 1.0 (0.9-2) TSH 3.550 (0.300-4.500) uIu/ml Urine Color Urine Appearance (Clear) Urine pH (4.5-7.5) Ur Specific [place] (1.000-1.030) Urine Protein (Negative) Urine Glucose (UA) (Negative) Urine Ketones (Negative) Urine Blood (Negative) Urine Nitrite (Negative) Urine Bilirubin (Negative) Urine Urobilinogen (Negative) Ur Leukocyte Esterase (Negative) Urine Opiates Screen (Neg) Ur Methadone, Qual (Neg) Urine Barbiturates (Neg) Ur Phencyclidine (PCP) (Neg) U Amphetamin/Meth Scrn (Neg) MDMA (Ecstasy) Screen (Neg) U Benzodiazepines Scrn (Neg) Ur Cocaine Metabolite (Neg) U Marijuana (THC) Screen (Neg) Ethyl Alcohol mg/dL < 3.0 (0-3) mg/dl 02/18/20 02/18/20 Range/Units 19:37 19:37 WBC (4.8-10.8) K/uL RBC (4.2-5.4) M/uL Hgb (12.0-16.0) g/dL Hct (37-47) % MCV (80-100) fL MCH (25-34) pg MCHC (32-36) g/dL RDW Std Deviation (36.4-46.3) fL RDW Coeff of Alessandra (11.5-14.5) % Plt Count (130-400) K/uL MPV (7.4-10.4) fL Immature Gran % (Auto) % Neut % (Auto) % Lymph % (Auto) % [place] % (Auto) % Eos % (Auto) % Baso % (Auto) % Immature Gran # (Auto) (0.00-0.02) K/uL Neut # (Auto) (1.4-6.5) K/uL Lymph # (Auto) (1.2-3.4) K/uL [place] # (Auto) (0.11-0.59) K/uL Eos # (Auto) (0-0.5) K/uL Baso # (Auto) (0-0.2) K/uL Sodium (136-145) mmol/L Potassium (3.5-5.1) mmol/L Chloride (98-107) mmol/L Carbon Dioxide (21-32) mmol/L Anion Gap (3-11) BUN (7-18) mg/dl Creatinine (0.6-1.2) mg/dl Est Cr Clr Drug Dosing ml/min Est GFR ( Amer) Est GFR (Non-Af Amer) BUN/Creatinine Ratio (10-20) Glucose (70-99) mg/dl Calcium (8.5-10.1) mg/dl Magnesium (1.8-2.4) mg/dl Total Bilirubin (0.2-1) mg/dl AST (15-37) U/L ALT (12-78) U/L Alkaline Phosphatase (45-117) U/L Total Creatine Kinase (26-192) U/L Total Protein (6.4-8.2) gm/dl Albumin (3.4-5.0) gm/dl Globulin (2.5-4.0) gm/dl Albumin/Globulin Ratio (0.9-2) TSH (0.300-4.500) uIu/ml Urine Color Yellow Urine Appearance Clear (Clear) Urine pH 5.0 (4.5-7.5) Ur Specific [place] 1.016 (1.000-1.030) Urine Protein Negative (Negative) Urine Glucose (UA) Negative (Negative) Urine Ketones Negative (Negative) Urine Blood Negative (Negative) Urine Nitrite Negative (Negative) Urine Bilirubin Negative (Negative) Urine Urobilinogen Negative (Negative) Ur Leukocyte Esterase Negative (Negative) Urine Opiates Screen Pos H (Neg) Ur Methadone, Qual Neg (Neg) Urine Barbiturates Neg (Neg) Ur Phencyclidine (PCP) Neg (Neg) U Amphetamin/Meth Scrn Neg (Neg) MDMA (Ecstasy) Screen Neg (Neg) U Benzodiazepines Scrn Neg (Neg) Ur Cocaine Metabolite Neg (Neg) U Marijuana (THC) Screen Neg (Neg) Ethyl Alcohol mg/dL (0-3) mg/dl Imaging Data Radiologist's Impression: Radiology results as stated below per my review and the radiologist's interpretation: CT OF THE CERVICAL SPINE CLINICAL HISTORY: neck pain, fall COMPARISON STUDY: No previous studies for comparison. CT DOSE: TECHNIQUE: CT scan of the cervical spine was performed from the skull base to the thoracic inlet. Images are reviewed in the axial, sagittal, and coronal planes. IV contrast was not administered for this examination. A dose lowering technique was utilized adhering to the principles of ALARA. FINDINGS: There is a 1 cm left lobe thyroid nodule versus beam hardening artifact. There are minimal nonspecific apical airspace opacities possibly atelectatic The prevertebral soft tissues are normal. No fractures or subluxations are visualized. There are mild multilevel degenerative changes IMPRESSION: 1. No evidence of acute fracture or traumatic subluxation. ACT 112: Negative or not required by law. Electronically signed by: Timur Escalera M.D. 03/29/2019 8:[address] head/brain wo con CLINICAL HISTORY: hit head, seizure PAIN COMPARISON STUDY: 02/14/2019 TECHNIQUE: Axial CT of the brain is performed from the vertex to the skull base. IV contrast was not administered for this examination. A dose lowering technique was utilized adhering to the principles of ALARA. CT DOSE: 1729.28 mGy.cm FINDINGS: No intra or extra-axial mass lesions are visualized. There is no CT evidence of acute cortical infarction. There is no evidence of midline shift. There is no acute hemorrhage. No calvarial fractures are visualized. There is no evidence of pathologic ventricular dilatation. There is no evidence of acute sinusitis IMPRESSION: Normal noncontrast head CT. ACT 112: Negative or not required by law. Electronically signed by: Timur Escalera M.D. 03/29/2019 8:05 PM ECG Data Attestation: I personally reviewed and interpreted this ECG as follows: Indication: + other (seizure) Rate (beats per minute): 86 Rhythm: + normal sinus ECG Intervals/blocks: + Normal QT-c (447) ECG ST segments: no ST elevation ECG Findings: no PVCs Blood Pressure Blood Pressure Findings: Elevated blood pressure Blood Pressure Disposition: further management by hospitalist Head Trauma GCS Score: 15 MDM Narrative Continuous Cardiac Monitoring: An order was placed for continuous cardiac monitoring. The monitor shows a rate of 83 with a normal sinus rhythm. There is no leukocytosis or concerning anemia. No significant electrolyte abnormality or kidney failure. No worrisome liver enzyme elevation. The patient appears to be in a euthyroid state. Total CK is not elevated. Urinalysis does not show infection. Urine tox shows opiates only. Alcohol level was undetectable. Brain CT shows no acute bleed or mass-effect. C-spine CT shows no acute fracture. EKG shows a sinus rhythm, no acute ischemia. The patient had multiple seizure-like events while here in the ED. They were all very short-lived. No urinary incontinence, no tongue bite. There may have been a brief post ictal phase after a few of the events. The events were described as arching of the back with looking to the left. The patient was aggressively managed. She received IV Ativan. Patient received 4 mg of IV Ativan during her ED stay. She received IV saline, IV Zofran, IV Haldol, IV Keppra and IV fosphenytoin. I did discuss the case with neurology on-call. They recommended transfer to [facility] for continuous EEG monitoring. I did speak with [facility]. The hospital there is full and as this patient is not critical, transfer cannot be arranged this evening. [facility] has accepted the patient once a bed becomes available. They recommended a hospital stay at our facility until a bed was open at theirs. I have not been able to witness 1 of her seizure-like events. At times, the nursing staff believes the events are pseudoseizures, at times, they think the events may be real seizure-like activity. Further work-up is of course necessary. Of note, there was a brief time that the patient was placed in soft restraints as she was pulling at her IV. This was ordered for the patient's safety. I did speak with case management, I talked to the patient's significant other. The on-call hospitalist has been consulted. The patient is currently sleeping. Impression & Plan Seizure-like activity, Change in mental status, Head trauma, Fall Discharge Plan Visit Data *Final* Discharge Date/Time: 03/29/19 23:03 Chief Complaint: Seizure Stated Complaint: SEIZURE, BEE STING ED Provider: Chan Jorge Discharge Problem: Seizure-like activity, Change in mental status, Head trauma, Fall Patient Disposition: Admitted As Inpatient Discharge Instructions Interventions: ED Discharge Assessment Last Done: 03/29/19 23:03 Discharge Problem: Change in mental status Qualifiers: Altered mental status type: unspecified Qualified Code(s): R41.82 - Altered mental status, unspecified Head trauma Qualifiers: Encounter type: initial encounter Qualified Code(s): S09.90XA - Unspecified injury of head, initial encounter Fall Qualifiers: Encounter type: initial encounter Qualified Code(s): W19.XXXA - Unspecified fall, initial encounter The scribe's documentation has been prepared under my direction and personally reviewed by me in its entirety. I confirm that the note above accurately reflects all work, treatment, procedures, and medical decision making performed by me.
--- NOTE | 2019-03-29 20:10 | CT Scan Report ---
CT OF THE CERVICAL SPINE CLINICAL HISTORY: neck pain, fall COMPARISON STUDY: No previous studies for comparison. CT DOSE: TECHNIQUE: CT scan of the cervical spine was performed from the skull base to the thoracic inlet. Tori ges are reviewed in the axial, sagittal, and coronal planes. IV contrast was not administered for thi s examination. A dose lowering technique was utilized adhering to the principles of ALARA. FINDINGS: There is a 1 cm left lobe thyroid nodule versus beam hardening artifact. There are minimal nonspecifi c apical airspace opacities possibly atelectatic The prevertebral soft tissues are normal. No fractures or subluxations are visualized. There are mild multilevel degenerative changes IMPRESSION: 1. No evidence of acute fracture or traumatic subluxation. ACT 112: Negative or not required by law. Electronically signed by: Timur Escalera M.D. 03/29/2019 8:08 PM
[2019-03-29] MEDS ORDERED: HALOPERIDOL LACTATE 5 MG/ML 1 ML VIAL IV STA (20:30)
[2019-03-29 20:43] LABS: Appearance Urine Clear (Clear); Bilirubin Urine Negative (Negative); Blood Urine Negative (Negative); Color Urine Yellow; Glucose Urine UA Negative (Negative); Ketones Urine Negative (Negative); Leukocyte Esterase Urine Negative (Negative); Nitrite Urine Negative (Negative); Protein Urine Negative (Negative); Specific Gravity Urine 1.016 (1.000-1.030); Urobilinogen Urine Negative (Negative)
[2019-03-29 21:01] LABS: Amphetamines+Metham, Urine Neg (Neg); Barbiturates, Urine Neg (Neg); Benzodiazepine, Urine Neg (Neg); Cocaine, Urine Neg (Neg); MDMA (Ecstacy), Urine Neg (Neg); Methadone, Urine Neg (Neg); Opiate, Urine Pos (Neg); Phencyclidine, Urine Neg (Neg)
--- NOTE | 2019-03-29 22:39 | History & Physical Report ---
Date of Service March 29, 2019 Assessment & Plan (1) Seizure-like activity: Michael is a 18-year-old biological female to transgender male with a past medical history of PCOS, PTSD, asthma, seizure-like activity, and suicidality who presents to the emergency department with concerns of 2 seizures which occurred prior to admission.Patient was recently admitted for similar and discharged on 03/04/2019. During that admission patient had expressed active suicidal ideation, hearing voices, and had extreme agitation. On 03/02 patient attempted to open a window and jump out during admission and became physically aggressive, but with no violence directed at staff. Patient is on Haldol 5 mg p.o. 3 times daily, but has not taken this in 2 days per her report. Seizure-like activity Patient unable to take medications for 2 days prior to admission due to running out. Prior eval 10/2018 that showed 4 to 5 Hz slowing suggestive of encephalopathy, but with no epileptiform discharges. MRI brain 10/2018 did not show acute pathology. Head CT and cervical spine CT on admission with no acute findings Continue Keppra 1 g twice daily Lorazepam 2 mg every 3 minutes as needed for seizure up to 3 doses and notify provider if patient seizes. Caution if additional lorazepam has been used for behavioral, notify provider Seizure precaution Patient accepted for definitive/expanded evaluation at [facility] Pending bed for transfer N.p.o. until able to pass bedside speech eval, then may advance diet to consistent carb PTSD/mood disorder/history of suicidal ideation Continue Haldol 5 mg p.o. 3 times daily. Continue benztropine 0.5 mg p.o. 3 times daily. Haldol 5 mg IM if unable to take p.o. 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 until able to pass bedside speech/swallow eval, then consistent carb diabetic Disposition: Med telemetry as above (2) Change in mental status: (3) Fall: (4) PCOS (polycystic ovarian syndrome): (5) Asthma: (6) PTSD (post-traumatic stress disorder): History of Present Illness Chief Complaint: ? Seizure Primary Care Provider: JODI Mead Michael is a 18-year-old biological female to transgender male with a past medical history of PCOS, PTSD, asthma, seizure-like activity, and suicidality who presents to the emergency department with concerns of 2 seizures which occurred prior to admission. She was brought in by EMS from [facility] where she stated she had a seizure. Patient is somnolent and sedated at time of HPI and unable to give a thorough history. History below is collected from historical review. Per EMS patient was in [facility] when observed a methamphetamine deal, got stung in the right forearm by a bee to which he is allergic and fell to the ground having a seizure. he has a history of seizures on Keppra 1g twice daily with Ativan as needed for seizure, per review he has not taken medications in the last 2 days because she ran out of them. He also reports that she had a fall at work due to the floor being wet and has had head injuries which provoke seizures in the past. Her neurologist is Dr. Camilo who recommended definitive evaluation in [facility]. [facility] was contacted and has accepted her for transfer, but is pending a bed. He was admitted for monitoring with seizure precautions. Patient was recently admitted for similar and discharged on 03/04/2019. During that admission patient had expressed active suicidal ideation, hearing voices, and had extreme agitation. On 03/02 patient attempted to open a window and jump out during admission and became physically aggressive, but with no violence directed at staff. Patient is on Haldol 5 mg p.o. 3 times daily, but has not taken this in 2 days per her report. He had required low levels of pharmacologic behavioral control on prior admissions, was placed on Cogentin in addition to Haldol as mentioned. Medical history: Chart reviewed, patient unable to give history Surgical history: Chart reviewed, patient unable to give history Allergies: Reviewed, patient unable to give history. Penicillin, latex, bee venom Social: History of marijuana use. [facility] admission 10/2018 for heroin/meth/marijuana overdose CODE STATUS: Full code Allergies Allergy/AdvReac Type Severity Reaction Status Date / Time bee venom protein (honey bee) Allergy Severe Anaphylaxis Verified 03/29/19 21:49 Penicillins Allergy Severe Itchiness Verified 03/29/19 21:49 latex Allergy Intermediate Skin Tony Verified 03/29/19 21:49 Home Medications Home Medications Medication Instructions Recorded Confirmed Type epinephrine [EpiPen] 0.3 mg IM DIRECTED PRN 02/14/19 03/29/19 History haloperidol 5 mg PO TID 03/23/19 03/29/19 History levetiracetam 1,000 mg PO DAILY 03/23/19 03/29/19 History metformin 500 mg PO BID 03/23/19 03/29/19 History benztropine 0.5 mg PO TID 03/29/19 03/29/19 History docusate sodium 100 mg PO BID 03/29/19 03/29/19 History famotidine 20 mg PO BID 03/29/19 03/29/19 History gabapentin 300 mg PO BID 03/29/19 03/29/19 History levetiracetam 500 mg PO DAILY 03/29/19 03/29/19 History ondansetron HCl 4 mg PO Q6H PRN 03/29/19 03/29/19 History sennosides [senna] 8.6 mg PO HS 03/29/19 03/29/19 History Past Med/Surg History Medical History Asthma Migraine without aura PCOS (polycystic ovarian syndrome) PTSD (post-traumatic stress disorder) Surgical History No pertinent past surgical history S/P appendectomy S/P cholecystectomy S/P tonsillectomy Family History Mother Hypertension Diabetes Father Epilepsy Other No significant family history Social History Preferred Language: Belarusian Communication Ability: Effective [employer] Required: No Beliefs That Will Affect Care: None Current Living Situation: Significant Other current occupational status: unemployed current occupation: Starts at [employer] tomorrow. Other Information That Helps Us Care for You: No Feels Safe at Home: Yes Safety Concerns: Feels Safe At This Time Smoking Status: Current every day smoker Tobacco Type: cigarettes ; Cigarettes Per Day: 10 ; Do You Dip or Chew Tobacco: No ; Second Hand Exposure: Yes ; Tobacco Cessation Education Requested by Patient: No Hx Alcohol Use: No Hx Substance Use: Yes substance use type: marijuana and methamphetamine Substance Use Type Other:: meth last used 01/21/2019 Last Used Substance: Unknown Review of Systems Review of Systems: Unobtainable due to cognitive status Physical Exam Physical Exam: General: Sedated. Opens eyes to verbal command, squeezes fingers on command. NAD. Not give verbal answers to questions. HEENT: Atraumatic, normocephalic. No tongue biting observed. Mucous membranes moist. Pulm: CTAB A&P. -wheezes, -rales, -rhonchi. Symmetrical chest rise. No increase work of breathing. No respiratory distress. Cardiac: RRR, -mrg. Radial pulses intact and symmetrical. Abdominal: Nontender, nondistended, soft. BS present. Skin: Red scratch zhao on left palmar aspect of the wrist. No acute bleeding w ounds. Pupils are equal and react to light and accomidation. Visual acuity grossly intact. Hearing is grossly intact. Reflexes: Patellar DTR 2+ Bilaterally Patient able to squeeze fingers, wiggle toes on command. Results & Data Vital Signs (Past 12 Hours) Vital Signs Pulse Pulse Resp BP BP Pulse Ox 03/29/19 22:15 83 24 139/91 98 03/29/19 22:00 92 H 22 144/82 H 95 03/29/19 21:46 84 22 124/81 96 03/29/19 21:40 89 22 124/81 98 03/29/19 21:30 103 H 24 152/87 H 96 03/29/19 21:20 85 98 03/29/19 21:15 85 20 163/95 H 97 03/29/19 21:00 89 23 149/109 H 98 03/29/19 20:50 110 H 98 03/29/19 20:45 90 22 136/77 99 03/29/19 20:30 86 22 135/76 99 03/29/19 20:21 88 22 140/78 98 03/29/19 20:20 90 100 03/29/19 20:11 87 20 156/88 H 100 03/29/19 20:04 93 H 18 141/91 H 97 03/29/19 19:42 110 H 18 117/78 100 03/29/19 19:35 98 03/29/19 18:41 97 03/29/19 18:24 90 22 108/92 97 Supervising Physician Co-Signing Physician Notes Attending addendum: I have physically seen this patient, have supervised the medical residents activities, and agree with the H&P unless as otherwise noted. Assessment and Plan: Seizure-like activity- Patient reports running out of her medications for the past [address] of head and cervical spine negative in the ED tonight. We will continue Keppra 1 g IV daily. Local neurology has requested the patient be transferred to [facility] when bed is available to further clarify type of seizure, or his pseudoseizure versus seizures. Lorazepam IV as needed breakthrough seizures. N.p.o. status. PTSD/mood disorder/history of suicidal ideation- Medications as noted. Remainder orders notations as noted. Resident Activity Tracking Resident Involvement: Resident Care Provided Care Provided: Adult Hospital Medicine (1) Change in mental status Altered mental status type: unspecified Qualified Code(s): R41.82 - Altered m ental status, unspecified (2) Fall Encounter type: initial encounter Qualified Code(s): W19.XXXA - Unspecified fall, initial encounter
[2019-03-29] MEDS ORDERED: DEXTROSE 50% 50 ML SYRINGE IV PRN (23:22)
[2019-03-29] MEDS ORDERED: DiphenhydrAMINE HCL 50 MG/ML VIAL IV PRN (23:22)
[2019-03-29] MEDS ORDERED: GLUCOSE 40% GEL 15 GM TUBE PO PRN (23:22)
[2019-03-29] MEDS ORDERED: LORazepam 2 MG/4 ML VIAL IV PRN ×2 (23:22)
[2019-03-29] MEDS ORDERED: ACETAMINOPHEN 325 MG TAB PO PRN (23:22)
[2019-03-29] MEDS ORDERED: HALOPERIDOL LACTATE 5 MG/ML 1 ML VIAL IM PRN (23:22)
[2019-03-29] MEDS ORDERED: GLUCAGON FOR INJ 1 MG VIAL SQ PRN (23:22)
[2019-03-29] MEDS ORDERED: CARBOHYDRATES FOR HYPOGLYCEMIA PO PRN (23:22)
[2019-03-29] MEDS ORDERED: GLUCOSE 10 TABS/TUBE PO PRN (23:22)
[2019-03-29] MEDS ORDERED: ONDANSETRON 4 MG OD TAB PO PRN (23:42)
[2019-03-30] MEDS ORDERED: INSULIN ASPART 100 UNITS/ML 3 ML PEN SC SCH (07:30)
[2019-03-30] MEDS ORDERED: BENZTROPINE MESYLATE 0.5 MG TAB PO SCH (09:00)
[2019-03-30] MEDS ORDERED: haloperidoL 5 MG TAB PO SCH (09:00)
[2019-03-30] MEDS ORDERED: DOCUSATE SODIUM 100 MG CAP PO SCH (09:00)
[2019-03-30] MEDS ORDERED: FAMOTIDINE 20 MG TAB PO SCH (09:00)
[2019-03-30] MEDS ORDERED: levETIRAcetam 500 MG TAB PO SCH (09:00)
--- NOTE | 2019-03-30 16:01 | Discharge Summary ---
Date of Service March 30, 2019 Admission HPI Per Admitting Provider Michael is a 18-year-old biological female to transgender male with a past medical history of PCOS, PTSD, asthma, seizure-like activity, and suicidality who presents to the emergency department with concerns of 2 seizures which occurred prior to admission. She was brought in by EMS from [facility] where she stated she had a seizure. Patient is somnolent and sedated at time of HPI and unable to give a thorough history. History below is collected from historical review. Per EMS patient was in [facility] when observed a methamphetamine deal, got stung in the right forearm by a bee to which he is allergic and fell to the ground having a seizure. he has a history of seizures on Keppra 1g twice daily with Ativan as needed for seizure, per review he has not taken medications in the last 2 days because she ran out of them. He also reports that she had a fall at work due to the floor being wet and has had head injuries which provoke seizures in the past. Her neurologist is Dr. Camilo who recommended definitive evaluation in [facility] was contacted and has accepted her for transfer, but is pending a bed. He was admitted for monitoring with seizure precautions. Patient was recently admitted for similar and discharged on 03/04/2019. During that admission patient had expressed active suicidal ideation, hearing voices, and had extreme agitation. On 03/02 patient attempted to open a window and jump out during admission and became physically aggressive, but with no violence directed at staff. Patient is on Haldol 5 mg p.o. 3 times daily, but has not taken this in 2 days per her report. He had required low levels of pharmacologic behavioral control on prior admissions, was placed on Cogentin in addition to Haldol as mentioned. Medical history: Chart reviewed, patient unable to give history Surgical history: Chart reviewed, patient unable to give history Allergies: Reviewed, patient unable to give history. Penicillin, latex, bee venom Social: History of marijuana use. [facility] admission 10/2018 for heroin/meth/marijuana overdose CODE STATUS: Full code Principal Diagnosis Recurrent seizures vs pseudoseizures Discharge Exam Constitutional WD/WN, vitals as above + overweight Eyes PERRL, conjunctivae normal, anicteric sclerae ENMT external ear and nose normal, oropharynx normal Neck trachea midline, no thyromegaly Respiratory normal respiratory effort, lungs clear to auscultation Cardiovascular RRR, no murmur, no edema Gastrointestinal (Abdomen) normal bowel sounds, soft, nontender, no hepatosplenomegaly Musculoskeletal no cyanosis or clubbing, extremities motor strength 5/5 Skin no rashes, warm and dry Neurologic patellar DTR's 2+ bilat, sensation intact and PERRL, EOMI, accommodation nl, no face palsy, no dysarthria Psychiatric Orientation: alert and oriented x 3 Affect: + anxious affect Mood: + anxious mood Lymphatic no cervical or axillary lymphadenopathy Discharge Data Allergies Allergy/AdvReac Type Severity Reaction Status Date / Time bee venom protein (honey bee) Allergy Severe Anaphylaxis Verified 03/29/19 21:49 Penicillins Allergy Severe Itchiness Verified 03/29/19 21:49 latex Allergy Intermediate Skin Tony Verified 03/29/19 21:49 Consultations 03/29/19 21:40 ED Decision to Admit Stat Ordered Studies 03/29/19 18:41 CT cervical spine wo con Stat CT head/brain wo con Stat Hospital Course (1) Seizure-like activity: Michael is a 18-year-old biological female to transgender male with a past medical history of PCOS, PTSD, asthma, seizure-like activity, and suicidality who presents to the emergency department with concerns of 2 seizures which occurred prior to admission.Patient was recently admitted for similar and discha rged on 03/04/2019. During that admission patient had expressed active suicidal ideation, hearing voices, and had extreme agitation. On 03/02 patient attempted to open a window and jump out during admission and became physically aggressive, but with no violence directed at staff. Patient is on Haldol 5 mg p.o. 3 times daily, but has not taken this in 2 days per her report. Seizure-like activity Patient unable to take medications for 2 days prior to admission due to running out. Prior eval 10/2018 that showed 4 to 5 Hz slowing suggestive of encephalopathy, but with no epileptiform discharges. MRI brain 10/2018 did not show acute pathology. Head CT and cervical spine CT on admission with no acute findings Continue Keppra 1 g twice daily Discussed with Dr. Salas, neurology, strongly recommended that the patient go to inpatient epilepsy monitoring unit patient refuses to go, wants to leave AMA discussed with patient and his girlfriend that it is absolutely essential to go to the EMU to determine his diagnosis it is not appropriate for him to take Keppra, Ativan if these are actually pseudoseizures, EMU only way to determine this explained that it is both the recommendation of myself and Dr. Salas that he go to the EMU this admission discussed that if he truly has status epilepticus he could from respiratory arrest if he was not found during seizure discussed that if he continues to come to the ED with seizures that the next logical plan would be sedation, intubation and fly to [place] to the EMU all he wanted to do was go home, he has appt with EMU late April he signed AMA papers PTSD/mood disorder/history of suicidal ideation Continue Haldol 5 mg p.o. 3 times daily. Continue benztropine 0.5 mg p.o. 3 times daily. Haldol 5 mg IM if unable to take p.o. 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 (2) Change in mental status: (3) Fall: (4) PCOS (polycystic ovarian syndrome): (5) Asthma: (6) PTSD (post-traumatic stress disorder): Total Time Total Time Spent Total Time Spent (In Minutes): 32 minutes Total Time Includes: Examination of the Patient, Discharge Planning and Medication Reconciliation Discharge Plan Discharge Items Patient Disposition: Against Medical Advice Reason For Visit: SEIZURE Discharge Diagnosis: Seizure disorder vs Pseudoseizures Condition on Discharge: Good Goals: need to keep appointment with the epileptic monitoring unit Activity: Resume your previous activity Driving/Machine Use: no driving due to possible seizures Non-emergency contact: Primary Care Provider and Neurologist Call non-emergency contact if: you have any medication questions and your symptoms worsen Follow-up/Referrals: Emely Urrutia CRNP [Primary Care Provider] - Diet: Carb Consistent or DM2 Addtl Attending Provider Instructions: Medications: no changes As we discussed, Dr. Salas strongly recommends and I strongly recommend that you go to the epilepsy monitoring unit to determine if these are real seizures Getting an actual diagnosis is essential to appropriate treatment For example, you should not be taking Keppra if you don't have seizure disorder Frequent trips to the ED and recurrent dosing of Ativan is not good for your overall health if you do not have epilepsy If we can diagnose this as pseudoseizures then more intense treatment can be provided for psychiatric issues which will be to your benefit As we discussed, if you continue to come into the ED with these episodes, then we may need to intubate you after sedation and fly you to [place] for epilepsy monitoring Again, you are leaving today against medical advice, risking further damages to your health and possibly from status epilepticus Pending Studies at Discharge: No Stand-Alone Forms: My [facility], Smoking Cessation Medications and DC Order Prescriptions: Continued epinephrine [EpiPen] 0.3 mg/0.3 mL Auto-Injector 0.3 mg IM DIRECTED PRN (Reason: Anaphylaxis) RF: 0 levetiracetam 1,000 mg tablet 1,000 mg PO DAILY RF: 0 haloperidol 5 mg tablet 5 mg PO TID RF: 0 metformin 500 mg Tablet 500 mg PO BID RF: 0 sennosides [senna] 8.6 mg tablet 8.6 mg PO HS RF: 0 benztropine 0.5 mg tablet 0.5 mg PO TID RF: 0 ondansetron HCl 4 mg tablet 4 mg PO Q6H PRN (Reason: Nausea) RF: 0 famotidine 20 mg tablet 20 mg PO BID RF: 0 docusate sodium 100 mg capsule 100 mg PO BID RF: 0 gabapentin 300 mg capsule 300 mg PO BID RF: 0 levetiracetam 500 mg tablet extended release 24 hr 500 mg PO DAILY RF: 0 Discharge Orders: Left Against Medical Advice (Routine); Ordered 03/30/19 Ordered By: Thiago Rick Admission Data Admit Date/Time: 03/29/19 22:43 Attending Provider: Thiago Rick Admit Provider: Santy Castro Primary Care Provider: Emely Urrutia Other Providers: Armond eRdman Other Interventions: Discharge Summary Assessment (RN) Last Done: 03/30/19 14:04 DC Date/Time DO NOT enter until pt leaves facility: 03/30/19 14:05 Coding Level of Care Code D/C Day Management >30 mins Diagnoses Seizure-like activity R56.9 Change in mental status R41.82 Altered mental status type: unspecified Fall W19.XXXA Encounter type: initial encounter PCOS (polycystic ovarian syndrome) E28.2 Asthma J45.909 PTSD (post-traumatic stress disorder) F43.10
--- NOTE | 2019-03-30 22:50 | Electrocardiogram Report ---
Test Reason : Blood Pressure : / mmHG Vent. Rate : 086 BPM Atrial Rate : 086 BPM P-R Int : 152 ms QRS Dur : 088 ms QT Int : 374 ms P-R-T Axes : 027 039 032 degrees QTc Int : 447 ms Normal sinus rhythm Normal ECG When compared with ECG of 01-MAR-2019 21:35, No significant change was found Confirmed by Rk Dang ([id number]) on 03/30/2019 10:50:32 PM Referred By: REFERRED SELF Confirmed By:Rk Dang
--- NOTE | 2019-03-31 00:33 | Billing Data ---
Date of Service March 31, 2019 Coding Level of Care Code 84293 OBS Care - Level 3
[2019-04-01 02:25] LABS: Codeine Urine NEGATIVE ng/mL (<50); Hydrocodone Urine NEGATIVE ng/mL (<50); Hydromor Urine NEGATIVE ng/mL (<50); Morphine Urine NEGATIVE ng/mL (<50); Norhydrocodone Conf Ur NEGATIVE ng/mL (<50); Noroxycodone Urine 2530 ng/mL (<50); Oxycodone Urine 1940 ng/mL (<50); Oxymorph Urine 848 ng/mL (<50)
== END 2019-03-30 14:05 | disposition left against medical advice (07) | DRG 101 ==
LOC: ED 18:32 → SUATTDRO 22:43 → 2S 22:43 → INTOOBSV 22:43 → 2S 23:03

== ENCOUNTER 2019-08-22 23:25 | Inpatient (IN) ==
[2019-08-23 00:07] LABS: Basophils # (auto) 0.02 K/uL (0-0.2); Basophils % (auto) 0.2 %; Eosinophils # (auto) 0.29 K/uL (0-0.5); Eosinophils % (auto) 3.4 %; Hemoglobin 14.6 g/dL (12.0-16.0); Immature Granulocytes # (auto) 0.01 K/uL (0.00-0.02); Immature Granulocytes % (auto) 0.1 %; Lymphocytes # (auto) 2.97 K/uL (1.2-3.4); Lymphocytes % (auto) 34.7 %; Mean Corpuscular Hgb Conc 33.2 g/dL (32-36); Mean Corpuscular Volume 84.3 fL (80-100); Monocytes # (auto) 0.64 K/uL (0.11-0.59); Monocytes % (auto) 7.5 %; Neutrophils # (auto) 4.62 K/uL (1.4-6.5); Neutrophils % (auto) 54.1 %; Platelet Count 337 K/uL (130-400); RDW Coefficient of Variation 13.8 % (11.5-14.5); RDW Standard Deviation 42.5 fL (36.4-46.3); Red Blood Count 5.22 M/uL (4.2-5.4); White Blood Count 8.55 K/uL (4.8-10.8)
[2019-08-23 00:24] LABS: Albumin Level 3.9 gm/dl (3.4-5.0); Calcium 8.5 mg/dl (8.5-10.1); Creatinine Clr Calc Pharmacy 179.4 ml/min; Est GFR (African American) 131.8; Est GFR (Non-African American) 113.7; Potassium 4.3 mmol/L (3.5-5.1)
[2019-08-23 00:26] LABS: Salicylate 2.7 mg/dl (2.8-20)
[2019-08-23 00:33] LABS: Appearance Urine Cloudy (Clear); Bacteria Urine Automated 1+ (Negative); Bilirubin Urine Negative (Negative); Blood Urine Negative (Negative); Color Urine Yellow; Epithelial Cell Urine Auto >30 /lpf (0-5); Glucose Urine UA Negative (Negative); Ketones Urine Negative (Negative); Leukocyte Esterase Urine Trace (Negative); Nitrite Urine Negative (Negative); Protein Urine Negative (Negative); Specific Gravity Urine 1.029 (1.000-1.030); Urobilinogen Urine Negative (Negative); pH Urine 5.5 (4.5-7.5)
[2019-08-23 00:34] LABS: Albumin Globulin Ratio 0.9 (0.9-2); Bilirubin,Total 0.2 mg/dl (0.2-1); Globulin 4.2 gm/dl (2.5-4.0); Thyroid Stimulating Hormone 1.68 uIu/ml (0.300-4.500); Total Protein 8.1 gm/dl (6.4-8.2)
[2019-08-23 00:37] LABS: Amphetamines+Metham, Urine Neg (Neg); Barbiturates, Urine Neg (Neg); Benzodiazepine, Urine Neg (Neg); Cocaine, Urine Neg (Neg); MDMA (Ecstacy), Urine Neg (Neg); Methadone, Urine Neg (Neg); Opiate, Urine Neg (Neg); Phencyclidine, Urine Neg (Neg)
[2019-08-23 01:12] LABS: Pregnancy Test, Serum Negative (Negative)
--- NOTE | 2019-08-23 01:23 | Emergency Department Note ---
History of Present Illness General Chief complaint: Mental Health Evaluation Stated complaint: mental health eval Source: patient Mode of arrival: other (police) Limitations: no limitations History of Present Illness Maximum Pain Intensity: 7 This patient is a 18-year-old female who presents to the emergency department with complaints of suicidal ideation. Patient states she was having thoughts of hanging herself in the backyard or cutting her wrists while sitting in the bathtub. She did contact her friend to then contacted crisis. The state police showed up at the patient's location. She apparently is living with her girlfriend and her girlfriend's parents. She states she has had suicidal ideation in the past and was last admitted to [facility] in March. Patient denies any alcohol ingestion or illicit substance abuse recently. She denies any recent illness, fever, cough, chest pain, shortness of breath. Home Medications Home Medications Medication Instructions Recorded Confirmed Type epinephrine 0.3 mg/0.3 mL 0.3 mg IM DIRECTED PRN #1 ea 08/16/19 08/22/19 Rx injection, auto-injector levetiracetam 500 mg tablet 500 mg PO TID #90 tab 08/16/19 08/22/19 Rx metformin 500 mg tablet 500 mg PO BID #60 tab 08/16/19 08/22/19 Rx paroxetine HCl 20 mg tablet 20 mg PO DAILY #30 tab 08/16/19 08/22/19 Rx quetiapine [Seroquel] 300 mg PO DAILY 08/22/19 08/22/19 History Allergies Allergy/AdvReac Type Severity Reaction Status Date / Time bee venom protein (honey bee) Allergy Severe Anaphylaxis Verified 08/16/19 10:09 Penicillins Allergy Severe Itchiness Verified 08/16/19 10:09 latex Allergy Intermediate Skin Tony Verified 08/16/19 10:09 Past Med/Surg History Medical History Asthma Migraine without aura PCOS (polycystic ovarian syndrome) PTSD (post-traumatic stress disorder) Seizure-like activity (Inactive) Surgical History No pertinent past surgical history S/P appendectomy S/P cholecystectomy S/P tonsillectomy Family History Mother Hypertension Diabetes Breast cancer Ovarian cancer Father Epilepsy Prostate cancer Grandmother (Paternal) Breast cancer Uncle Myocardial infarction Other No significant family history Denies family history of Colorectal cancer Social History Preferred Language: Dominican Communication Ability: Effective Art Coordinator Required: No Beliefs That Will Affect Care: None Current Living Situation: Significant Other current occupational status: unemployed current occupation: Starts at [employer] tomorrow. Feels Safe at Home: No Is there a partner from a previous relationship who is making you feel unsafe now?: No Smoking Status: Current every day smoker Tobacco Type: cigarettes ; Age Started Using Tobacco: 9 ; Cigarettes Per Day: 10 ; Second Hand Exposure: Yes ; Hx Alcohol Use: No Hx Substance Use: Yes substance use type: marijuana and methamphetamine Substance Use Type Other:: meth last used 01/21/2019 Last Used Substance: Unknown Dental Care, Regularly: No Physical Activity Frequency: Does not Exercise Seatbelt Use: never Sunscreen Use: No Review of Systems See HPI for pertinent positives & negatives. and A total of 10 systems reviewed and were otherwise negative Physical Exam Vital Signs Vital Signs - 24 hr 08/22/19 23:29 Temperature 36.9 C Temperature Source Oral Pulse Rate 70 Respiratory Rate 18 Respiratory Effort / Characteristics Non-Labored Respiratory Depth Normal Blood Pressure 123/86 Blood Pressure Mean 98 Pulse Oximetry 97 Oxygen Delivery Method Room Air Sepsis Recent Fever Within 48 Hours No Sepsis Action Taken by Nursing No Action Required Vital signs reviewed. General: Well-appearing 18 yo female, in no significant distress. HEENT: No scleral icterus, PERRLA, neck supple. Atraumatic. Cardiovascular: Regular rate and rhythm, no extra sounds. Pulmonary: Clear to auscultation bilaterally, normal work of breathing. Abdomen: Soft, obese, nontender, nondistended, positive bowel sounds. Musculoskeletal: Atraumatic, no peripheral edema. Neurologic: Patient awake alert and oriented x 3 Psych: Positive suicidal ideation with plan, negative homicidal ideation Skin: Warm, dry, no rash Course Administered Medications Hydroxyzine HCl (Vistaril) 25 mg PO Q4H PRN PRN Reason: Anxiety Stop: 09/22/19 02:05 Last Admin: 08/23/19 03:10 Dose: 25 mg Documented by: [id number] Discontinued Medications Hydroxyzine HCl (Vistaril) 25 mg PO NOW STA Stop: 08/23/19 00:25 Last Admin: 08/23/19 00:29 Dose: 25 mg Documented by: [id number] Medical Decision Making Differential Diagnosis Differential diagnosis: Etiologies such as psychiatric disorder, infection, hypoglycemia, electrolyte abnormalities, cardiac sources, intracerebral event, toxicological process, neurologic disorder, as well as others were entertained. Home Medications Current Medication List: was personally reviewed by me Laboratory Data Attestation: I reviewed the patient's lab results. Result diagrams: 08/22/19 23:51 08/22/19 23:51 Lab Results 08/22/19 08/22/19 08/22/19 Range/Units 23:51 23:51 23:51 WBC 8.55 (4.8-10.8) K/uL RBC 5.22 (4.2-5.4) M/uL Hgb 14.6 (12.0-16.0) g/dL Hct 44.0 (37-47) % MCV 84.3 (80-100) fL MCH 28.0 (25-34) pg MCHC 33.2 (32-36) g/dL RDW Std Deviation 42.5 (36.4-46.3) fL RDW Coeff of Alessandra 13.8 (11.5-14.5) % Plt Count 337 (130-400) K/uL MPV 11.0 H (7.4-10.4) fL Immature Gran % (Auto) 0.1 % Neut % (Auto) 54.1 % Lymph % (Auto) 34.7 % Winkler % (Auto) 7.5 % Eos % (Auto) 3.4 % Baso % (Auto) 0.2 % Neut # (Auto) 4.62 (1.4-6.5) K/uL Lymph # (Auto) 2.97 (1.2-3.4) K/uL Winkler # (Auto) 0.64 H (0.11-0.59) K/uL Eos # (Auto) 0.29 (0-0.5) K/uL Baso # (Auto) 0.02 (0-0.2) K/uL Immature Gran # (Auto) 0.01 (0.00-0.02) K/uL Sodium 143 (136-145) mmol/L Potassium 4.3 (3.5-5.1) mmol/L Chloride 109 H (98-107) mmol/L Carbon Dioxide 26 (21-32) mmol/L Anion Gap 8.0 (3-11) BUN 10 (7-18) mg/dl Creatinine 0.76 (0.6-1.2) mg/dl Est Cr Clr Drug Dosing 179.4 ml/min Est GFR ( Amer) 131.8 Est GFR (Non-Af Amer) 113.7 BUN/Creatinine Ratio 13.0 (10-20) Glucose 90 (70-99) mg/dl Calcium 8.5 (8.5-10.1) mg/dl Total Bilirubin 0.2 (0.2-1) mg/dl AST 16 (15-37) U/L ALT 39 (12-78) U/L Alkaline Phosphatase 110 (45-117) U/L Total Protein 8.1 (6.4-8.2) gm/dl Albumin 3.9 (3.4-5.0) gm/dl Globulin 4.2 H (2.5-4.0) gm/dl Albumin/Globulin Ratio 0.9 (0.9-2) TSH 1.680 (0.300-4.500) uIu/ml HCG, Qual (Negative) Urine Color Urine Appearance (Clear) Urine pH (4.5-7.5) Ur Specific Hasty (1.000-1.030) Urine Protein (Negative) Urine Glucose (UA) (Negative) Urine Ketones (Negative) Urine Blood (Negative) Urine Nitrite (Negative) Urine Bilirubin (Negative) Urine Urobilinogen (Negative) Ur Leukocyte Esterase (Negative) Urine WBC (Auto) (0-5) /hpf Urine RBC (Auto) (0-4) /hpf U Hyaline Cast (Auto) (0-5) /lpf U Epithel Cells (Auto) (0-5) /lpf Urine Bacteria (Auto) (Negative) Salicylates 2.7 L (2.8-20) mg/dl Urine Opiates Screen (Neg) Ur Methadone, Qual (Neg) Acetaminophen 11 (10-30) ug/ml Urine Barbiturates (Neg) Ur Phencyclidine (PCP) (Neg) U Amphetamin/Meth Scrn (Neg) MDMA (Ecstasy) Screen (Neg) U Benzodiazepines Scrn (Neg) Ur Cocaine Metabolite (Neg) U Marijuana (THC) Screen (Neg) Ethyl Alcohol mg/dL (0-3) mg/dl 08/22/19 08/22/19 08/23/19 Range/Units 23:51 23:55 00:00 WBC (4.8-10.8) K/uL RBC (4.2-5.4) M/uL Hgb (12.0-16.0) g/dL Hct (37-47) % MCV (80-100) fL MCH (25-34) pg MCHC (32-36) g/dL RDW Std Deviation (36.4-46.3) fL RDW Coeff of Alessandra (11.5-14.5) % Plt Count (130-400) K/uL MPV (7.4-10.4) fL Immature Gran % (Auto) % Neut % (Auto) % Lymph % (Auto) % Winkler % (Auto) % Eos % (Auto) % Baso % (Auto) % Neut # (Auto) (1.4-6.5) K/uL Lymph # (Auto) (1.2-3.4) K/uL Winkler # (Auto) (0.11-0.59) K/uL Eos # (Auto) (0-0.5) K/uL Baso # (Auto) (0-0.2) K/uL Immature Gran # (Auto) (0.00-0.02) K/uL Sodium (136-145) mmol/L Potassium (3.5-5.1) mmol/L Chloride (98-107) mmol/L Carbon Dioxide (21-32) mmol/L Anion Gap (3-11) BUN (7-18) mg/dl Creatinine (0.6-1.2) mg/dl Est Cr Clr Drug Dosing ml/min Est GFR ( Amer) Est GFR (Non-Af Amer) BUN/Creatinine Ratio (10-20) Glucose (70-99) mg/dl Calcium (8.5-10.1) mg/dl Total Bilirubin (0.2-1) mg/dl AST (15-37) U/L ALT (12-78) U/L Alkaline Phosphatase (45-117) U/L Total Protein (6.4-8.2) gm/dl Albumin (3.4-5.0) gm/dl Globulin (2.5-4.0) gm/dl Albumin/Globulin Ratio (0.9-2) TSH (0.300-4.500) uIu/ml HCG, Qual Negative (Negative) Urine Color Urine Appearance (Clear) Urine pH (4.5-7.5) Ur Specific Hasty (1.000-1.030) Urine Protein (Negative) Urine Glucose (UA) (Negative) Urine Ketones (Negative) Urine Blood (Negative) Urine Nitrite (Negative) Urine Bilirubin (Negative) Urine Urobilinogen (Negative) Ur Leukocyte Esterase (Negative) Urine WBC (Auto) (0-5) /hpf Urine RBC (Auto) (0-4) /hpf U Hyaline Cast (Auto) (0-5) /lpf U Epithel Cells (Auto) (0-5) /lpf Urine Bacteria (Auto) (Negative) Salicylates (2.8-20) mg/dl Urine Opiates Screen Neg (Neg) Ur Methadone, Qual Neg (Neg) Acetaminophen (10-30) ug/ml Urine Barbiturates Neg (Neg) Ur Phencyclidine (PCP) Neg (Neg) U Amphetamin/Meth Scrn Neg (Neg) MDMA (Ecstasy) Screen Neg (Neg) U Benzodiazepines Scrn Neg (Neg) Ur Cocaine Metabolite Neg (Neg) U Marijuana (THC) Screen Pos H (Neg) Ethyl Alcohol mg/dL < 3.0 (0-3) mg/dl 08/23/19 Range/Units 00:00 WBC (4.8-10.8) K/uL RBC (4.2-5.4) M/uL Hgb (12.0-16.0) g/dL Hct (37-47) % MCV (80-100) fL MCH (25-34) pg MCHC (32-36) g/dL RDW Std Deviation (36.4-46.3) fL RDW Coeff of Alessandra (11.5-14.5) % Plt Count (130-400) K/uL MPV (7.4-10.4) fL Immature Gran % (Auto) % Neut % (Auto) % Lymph % (Auto) % Winkler % (Auto) % Eos % (Auto) % Baso % (Auto) % Neut # (Auto) (1.4-6.5) K/uL Lymph # (Auto) (1.2-3.4) K/uL Winkler # (Auto) (0.11-0.59) K/uL Eos # (Auto) (0-0.5) K/uL Baso # (Auto) (0-0.2) K/uL Immature Gran # (Auto) (0.00-0.02) K/uL Sodium (136-145) mmol/L Potassium (3.5-5.1) mmol/L Chloride (98-107) mmol/L Carbon Dioxide (21-32) mmol/L Anion Gap (3-11) BUN (7-18) mg/dl Creatinine (0.6-1.2) mg/dl Est Cr Clr Drug Dosing ml/min Est GFR ( Amer) Est GFR (Non-Af Amer) BUN/Creatinine Ratio (10-20) Glucose (70-99) mg/dl Calcium (8.5-10.1) mg/dl Total Bilirubin (0.2-1) mg/dl AST (15-37) U/L ALT (12-78) U/L Alkaline Phosphatase (45-117) U/L Total Protein (6.4-8.2) gm/dl Albumin (3.4-5.0) gm/dl Globulin (2.5-4.0) gm/dl Albumin/Globulin Ratio (0.9-2) TSH (0.300-4.500) uIu/ml HCG, Qual (Negative) Urine Color Yellow Urine Appearance Cloudy A (Clear) Urine pH 5.5 (4.5-7.5) Ur Specific Hasty 1.029 (1.000-1.030) Urine Protein Negative (Negative) Urine Glucose (UA) Negative (Negative) Urine Ketones Negative (Negative) Urine Blood Negative (Negative) Urine Nitrite Negative (Negative) Urine Bilirubin Negative (Negative) Urine Urobilinogen Negative (Negative) Ur Leukocyte Esterase Trace H (Negative) Urine WBC (Auto) 10-30 H (0-5) /hpf Urine RBC (Auto) 10-30 H (0-4) /hpf U Hyaline Cast (Auto) 1-5 (0-5) /lpf U Epithel Cells (Auto) >30 H (0-5) /lpf Urine Bacteria (Auto) 1+ H (Negative) Salicylates (2.8-20) mg/dl Urine Opiates Screen (Neg) Ur Methadone, Qual (Neg) Acetaminophen (10-30) ug/ml Urine Barbiturates (Neg) Ur Phencyclidine (PCP) (Neg) U Amphetamin/Meth Scrn (Neg) MDMA (Ecstasy) Screen (Neg) U Benzodiazepines Scrn (Neg) Ur Cocaine Metabolite (Neg) U Marijuana (THC) Screen (Neg) Ethyl Alcohol mg/dL (0-3) mg/dl MDM Narrative This patient was evaluated and appeared to be in no significant distress. Pat ient was medically cleared and evaluated by the mental health immigration case manager. The patient is voluntary for admission at this time. A referral to S. was made and the patient was accepted on a 201 voluntary admission. Impression & Plan Suicidal ideation Discharge Plan Visit Data *Final* Discharge Date/Time: 08/23/19 02:29 Chief Complaint: Mental Health Evaluation Stated Complaint: mental health eval ED Provider: Valentina Tolentino Discharge Problem: Suicidal ideation Patient Disposition: Admitted As Inpatient Discharge Instructions Interventions: ED Discharge Assessment Last Done: 08/23/19 02:29
[2019-08-23] MEDS ORDERED: SODIUM CHLORIDE 0.65% NA SOLN 45 ML (OCEAN) PRN (02:06)
[2019-08-23] MEDS ORDERED: BISMUTH SUBSALICYLATE PER ML OMNICELL CHARGE PO PRN (02:06)
[2019-08-23] MEDS ORDERED: MAGNESIUM HYDROXIDE SUSP 30 ML UDC PO PRN (02:06)
[2019-08-23] MEDS ORDERED: ALUMINUM/MAGNESIUM SUSP 30 ML UDC PO PRN (02:06)
[2019-08-23] MEDS: levETIRAcetam 500 MG TAB PO SCH ×2 (08:59→13:28)
[2019-08-23] MEDS ORDERED: QUETIAPINE FUMARATE 300 MG TABLET PO SCH ×2 (09:00→22:00)
[2019-08-23] MEDS ORDERED: PARoxetine HCL 20 MG TAB PO SCH (09:00)
[2019-08-23] MEDS: METFORMIN HCL 500 MG TAB PO SCH ×2 (09:03→19:13)
--- NOTE | 2019-08-23 09:29 | History & Physical ---
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 Screen Ur Methadone, Qual Acetaminophen 11 Urine Barbiturates Ur Phencyclidine (PCP) U Amphetamin/Meth Scrn MDMA (Ecstasy) Screen U Benzodiazepines Scrn Ur Cocaine Metabolite U Marijuana (THC) Screen U Marijuana THC Carboxy Drug Screen Comment Ethyl Alcohol mg/dL 08/22/19 08/22/19 08/23/19 23:51 23:55 00:00 WBC RBC Hgb Hct MCV MCH MCHC RDW Std Deviation RDW Coeff of Alessandra Plt Count MPV Immature Gran % (Auto) Neut % (Auto) Lymph % (Auto) Boyle % (Auto) Eos % (Auto) Baso % (Auto) Neut # (Auto) Lymph # (Auto) Boyle # (Auto) Eos # (Auto) Baso # (Auto) Immature Gran # (Auto) Sodium Potassium Chloride Carbon Dioxide Anion Gap BUN Creatinine Est Cr Clr Drug Dosing Est GFR ( Amer) Est GFR (Non-Af Amer) BUN/Creatinine Ratio Glucose POC Glucose Calcium Total Bilirubin AST ALT Alkaline Phosphatase Total Protein Albumin Globulin Albumin/Globulin Ratio TSH HCG, Qual Negative Urine Color Urine Appearance Urine pH Ur Specific [place] Urine Protein Urine Glucose (UA) Urine Ketones Urine Blood Urine Nitrite Urine Bilirubin Urine Urobilinogen Ur Leukocyte Esterase Urine WBC (Auto) Urine RBC (Auto) U Hyaline Cast (Auto) U Epithel Cells (Auto) Urine Bacteria (Auto) Salicylates Urine Opiates Screen Neg Ur Methadone, Qual Neg Acetaminophen Urine Barbiturates Neg Ur Phencyclidine (PCP) Neg U Amphetamin/Meth Scrn Neg MDMA (Ecstasy) Screen Neg U Benzodiazepines Scrn Neg Ur Cocaine Metabolite Neg U Marijuana (THC) Screen Pos H U Marijuana THC Carboxy Drug Screen Comment Ethyl Alcohol mg/dL < 3.0 08/23/19 08/23/19 08/23/19 00:00 00:00 08:52 WBC RBC Hgb Hct MCV MCH MCHC RDW Std Deviation RDW Coeff of Alessandra Plt Count MPV Immature Gran % (Auto) Neut % (Auto) Lymph % (Auto) Boyle % (Auto) Eos % (Auto) Baso % (Auto) Neut # (Auto) Lymph # (Auto) Boyle # (Auto) Eos # (Auto) Baso # (Auto) Immature Gran # (Auto) Sodium Potassium Chloride Carbon Dioxide Anion Gap BUN Creatinine Est Cr Clr Drug Dosing Est GFR ( Amer) Est GFR (Non-Af Amer) BUN/Creatinine Ratio Glucose POC Glucose 95 Calcium Total Bilirubin AST ALT Alkaline Phosphatase Total Protein Albumin Globulin Albumin/Globulin Ratio TSH HCG, Qual Urine Color Yellow Urine Appearance Cloudy A Urine pH 5.5 Ur Specific [place] 1.029 Urine Protein Negative Urine Glucose (UA) Negative Urine Ketones Negative Urine Blood Negative Urine Nitrite Negative Urine Bilirubin Negative Urine Urobilinogen Negative Ur Leukocyte Esterase Trace H Urine WBC (Auto) 10-30 H Urine RBC (Auto) 10-30 H U Hyaline Cast (Auto) 1-5 U Epithel Cells (Auto) >30 H Urine Bacteria (Auto) 1+ H Salicylates Urine Opiates Screen Ur Methadone, Qual Acetaminophen Urine Barbiturates Ur Phencyclidine (PCP) U Amphetamin/Meth Scrn MDMA (Ecstasy) Screen U Benzodiazepines Scrn Ur Cocaine Metabolite U Marijuana (THC) Screen U Marijuana THC Carboxy Pending Drug Screen Comment Pending Ethyl Alcohol mg/dL Current Inpatient Medications Current Inpatient Medications: Current Inpatient Medications Acetaminophen (Tylenol) 650 mg PO Q4H PRN PRN Reason: Headache or Minor Fever Stop: 09/22/19 02:05 Al Hydrox/Mg Hydrox/Simethicone (Maalox) 30 ml PO Q4H PRN PRN Reason: GI Upset Stop: 09/22/19 02:05 Bismuth Subsalicylate (Kaopectate) 15 ml PO PRN PRN PRN Reason: Loose Stool Stop: 09/22/19 02:05 Hydroxyzine HCl (Vistaril) 50 mg PO HSZ PRN PRN Reason: Insomnia Stop: 09/22/19 02:05 Hydroxyzine HCl (Vistaril) 25 mg PO Q4H PRN PRN Reason: Anxiety Stop: 09/22/19 02:05 Last Admin: 08/23/19 03:10 Dose: 25 mg Documented by: Levetiracetam (Keppra) 500 mg PO TID [facility] Stop: 09/22/19 08:59 Last Admin: 08/23/19 08:59 Dose: 500 mg Documented by: Magnesium Hydroxide (Milk Of Magnesia) 30 ml PO DAILY PRN PRN Reason: Constipation Stop: 09/22/19 02:05 Metformin HCl (Glucophage) 500 mg PO BIDM [facility] Stop: 09/22/19 08:59 Last Admin: 08/23/19 09:03 Dose: Not Given Documented by: Paroxetine HCl (Paxil) 20 mg PO QAM [facility] Stop: 09/22/19 08:59 Last Admin: 08/23/19 08:59 Dose: 20 mg Documented by: Quetiapine Fumarate (Seroquel) 300 mg PO HS [facility] Stop: 09/22/19 21:59 Sodium Chloride ([place] Nasal) 1 - 2 sprays NA PRN PRN PRN Reason: Nasal Dryness/Congestion Stop: 09/22/19 02:05
[2019-08-23] MEDS ORDERED: haloperidoL 5 MG TAB PO ONE (09:55)
[2019-08-23] MEDS ORDERED: QUETIAPINE FUMARATE 25 MG TABLET PO PRN (10:51)
[2019-08-23] MEDS ORDERED: haloperidoL 5 MG TAB PO PRN (10:52)
--- NOTE | 2019-08-23 12:12 | Neurology Consultation ---
Date of Consultation August 23, 2019 Assessment & Plan (1) Seizure disorder: Seizure disorder beginning in childhood with events characterized as staring episodes followed by generalized irregular shaking of the limbs. Patient reports premonitory aura described as tunnel vision and provoking emotional stressors. He does not have an EEG proven epilepsy and I agree with the previous assessments and that pseudoseizures or nonepileptic seizures are likely. However, this patient continues to have seizure-like episodes in the context of significant psychiatric illness. After further discussion with Dr. Evangelista, I agree that an anticonvulsant with mood stabilizing properties is appropriate. Patient should discontinue Keppra. I would recommend Trileptal 300 mg twice daily. Patient should follow-up with Dr. Salas in neurology clinic. He still needs to complete video EEG monitoring which will need to be arranged at a tertiary center. Thank you for the consult. History of Present Illness Reason for Consultation: Anticonvulsant management Requesting Physician: Radha Evangelista MD Attending Physician: Radha Evangelista MD History of Present Illness The patient is a 18-year-old transgender, female to male patient with a history of seizure disorder, posttraumatic stress disorder, and polysubstance abuse. He was evaluated by Dr. Salas in neurology clinic this past February for his seizures. The patient began having staring spells at age 5 or 6 which evolved into staring spells followed by pelvic thrusting, nonrhythmic shaking of the limbs a few years later. The patient reports tongue and lip biting as well as incontinence with some of these episodes. Episodes are typically triggered by stress and have been of variable duration and intensity. He had been prescribed Depakote in the past. This medication may have been helpful although was discon tinued due to concerns over potential plans for . He was started on Keppra for seizures earlier this year although there has been some discussion as to whether or not this medication was necessary or appropriate given the likelihood that the episodes are pseudoseizures or nonepileptic events. The patient has reportedly been evaluated by specialists in [place], [place], [facility], and [facility] for his seizures. He does not have an EEG proven epilepsy, however. An EEG completed at [facility] March 02, 2019 was normal. A brain MRI, epilepsy protocol, completed at [facility] October 28, 2018 was normal. No evidence of mesial temporal sclerosis. As above, the patient reports experiencing seizures on a near daily basis. He describes experiencing some premonitory tunnel vision during which time he is able to sit down or find a position of safety. Stress has been a persistent triggering factor. Irregular shaking of the limbs sometimes with associated tongue or lip bite will then ensue. He is currently admitted to the behavioral health unit for further evaluation and management of suicidal ideation occurring in the context of bipolar 1 disorder, posttraumatic stress disorder, personality disorder, unspecified psychosis, and cannabis abuse. He does indicate that in the past, his seizures have been well controlled with consistent use of marijuana. Allergies Allergy/AdvReac Type Severity Reaction Status Date / Time bee venom protein (honey bee) Allergy Severe Anaphylaxis Verified 08/16/19 10:09 Penicillins Allergy Severe Itchiness Verified 08/16/19 10:09 latex Allergy Intermediate Skin Tony Verified 08/16/19 10:09 Home Medications Home Medications Medication Instructions Recorded Confirmed Type epinephrine 0.3 mg/0.3 mL 0.3 mg IM DIRECTED PRN #1 ea 08/16/19 08/22/19 Rx injection, auto-injector levetiracetam 500 mg tablet 500 mg PO TID #90 tab 08/16/19 08/22/19 Rx metformin 500 mg tablet 500 mg PO BID #60 tab 08/16/19 08/22/19 Rx paroxetine HCl 20 mg tablet 20 mg PO DAILY #30 tab 08/16/19 08/22/19 Rx quetiapine [Seroquel] 300 mg PO HS 08/22/19 08/23/19 History Patient History Medical History Asthma Bipolar 1 disorder Cannabis abuse Migraine without aura Obesities, morbid PCOS (polycystic ovarian syndrome) Personality disorder Polysubstance abuse PTSD (post-traumatic stress disorder) Purging Seizure-like activity (Inactive) Unspecified psychosis Surgical History No pertinent past surgical history S/P appendectomy S/P cholecystectomy S/P tonsillectomy Family History Mother Hypertension Diabetes Breast cancer Ovarian cancer Father Epilepsy Prostate cancer Grandmother (Paternal) Breast cancer Uncle Myocardial infarction Other No significant family history Denies family history of Colorectal cancer Social History Preferred Language: Tam[place] Communication Ability: Effective Director Of Cardiac Cath Lab Required: No Beliefs That Will Affect Care: None Current Living Situation: Significant Other current occupational status: unemployed current occupation: Starts at [employer] tomorrow. Feels Safe at Home: No Is there a partner from a previous relationship who is making you feel unsafe now?: No Smoking Status: Current every day smoker Tobacco Type: cigarettes ; Age Started Using Tobacco: 9 ; Cigarettes Per Day: 10 ; Second Hand Exposure: Yes ; Hx Alcohol Use: No Hx Substance Use: Yes substance use type: marijuana and methamphetamine Substance Use Type Other:: meth last used 01/21/2019 Last Used Substance: Unknown Dental Care, Regularly: No Physical Activity Frequency: Does not Exercise Seatbelt Use: never Sunscreen Use: No Review of Systems Constitutional: no fever and no chills Eyes: no blind spots and no diplopia Ear, Nose, Mouth, Throat: no tinnitus and no hearing loss Respiratory: no cough and no dyspnea Cardiovascular: no chest pain and no palpitations Gastrointestinal: no nausea and no vomiting Genitourinary: no urinary incontinence Musculoskeletal: no myalgia Integumentary: no rash and no lesions Neurologic: as per Subjective / HPI and + seizure-like activity; no gait abnormality, no localized weakness, no loss of sensation and no memory loss Occasional migraines reported Psychiatric: as per Subjective / HPI, + depression and + suicidal ideation Hematologic / Lymphatic: no easy bleeding and no easy bruising Exam (Neuro) Constitutional: well developed and well nourished; no acute distress Eyes: normal visual joe by confrontation, PERRL, normal accommodation and EOM intact bilaterally; no fundoscopic abnormality, no nystagmus and no papilledema Cardiovascular: Vessels: normal carotid upstroke; no carotid bruit Neurologic: Oriented to:: Person, Place and Time Memory: Short Term Intact and Remote Intact Attention: Span Intact and Concentration Intact Language: Naming Objects and Repeating Phrases Speech Fluency: negative Dysarthria Speech Aphasia: negative Aphasia Fund of Knowledge: Current Events, Past History and Vocabulary Cranial Nerves: Normal II (Visual joe full to confrontation, visual acuity normal), III, IV, (Pupils equal round reactive to light and accommodation, eye movements normal), V (Facial sensation intact), VII (There is no facial droop or weakness), VIII (Hearing intact), IX, X (Palate elevates to midline), XI (Shoulder shrug intact) and XII (Tongue protrudes to midline) Motor Strength: Normal Lower Extremities and Normal Upper Extremities; negative Pronator Drift Motor Tone: Normal Lower Extremities and Normal Upper Extremities Muscle Bulk/Involuntary Movements: No Involuntary Movements; negative Muscle Atrophy Sensation: Light Touch Intact, Pain/Temperature Intact, Vibration Intact and Proprioception Intact Coordination: Normal; negative Limited Balance, Dysdiadochokinesia, Finger-Nose Abnormal and Heel-Cheng Abnormal Deep Tendon Reflexes: Rt Triceps: 2+, Lt Triceps: 2+, Rt Biceps: 2+, Lt Biceps: 2+, Rt Brachioradialis: 2+, Lt Brachioradialis: 2+, Rt Patellar: 2+, Lt Patellar: 2+, Rt Ankle: 2+ and Lt Ankle: 2+ Special Tests: negative Babinski Present Gait: Normal Station and Gait Results & Data ([facility]) Vital Signs (Past 12 Hours) Vital Signs Temp Pulse Pulse Pulse Resp BP BP 08/23/19 06:39 61 139/88 08/23/19 06:38 36.6 C 53 L 20 128/82 08/23/19 03:04 36.6 C 60 18 08/23/19 02:29 84 17 125/98 BP Pulse Ox 08/23/19 06:39 08/23/19 06:38 08/23/19 03:04 119/83 08/23/19 02:29 98 Laboratory Results WBC 8.55, hemoglobin 14.6, hematocrit 44.0, platelet count 337, sodium 143, potassium 4.3, BUN 10, creatinine 0.76, glucose 90, calcium 8.5, AST 16, ALT 39, TSH 1.680, urine toxicology screen positive for THC Diagnostic Findings CT of the head completed at [facility] March 29, 2019- for hemorrhage or acute process. I reviewed the images as well as the radiologist interpretation of this test. MRI of the brain, seizure protocol, completed at [facility] October 28, 2018 was unremarkable. No evidence of mesial temporal sclerosis or significant parenchymal abnormality. EEG completed at [facility] March 02, 2019 was normal. No epileptiform abnormalities. Dr. Salas's clinic note from February 17, 2019 reviewed. Clinic note describes patient's seizure types, previous evaluations, and treatments. Patient's episodic migraines were also described. Dr. Hernandes's [facility] consultation note from March 02, 2019 reviewed. Clinic note describes concern for pseudoseizures in this patient as well as plans for further assessment at a tertiary center. Coding Level of Care Code 96658 Initial In Care Lvl 3 Diagnoses Seizure disorder G40.909
[2019-08-23] MEDS: ACETAMINOPHEN 325 MG TAB PO PRN (13:25)
[2019-08-23] MEDS: OXcarbazepine 150 MG TABLET PO SCH (21:46)
[2019-08-24] MEDS: METFORMIN HCL 500 MG TAB PO SCH (08:13)
[2019-08-24] MEDS: OXcarbazepine 150 MG TABLET PO SCH (08:14)
[2019-08-24 08:42] LABS: Glucose Fasting 81 mg/dl (70-99)
[2019-08-24 08:49] LABS: Chol HDL Ratio 6; Cholesterol 209 mg/dl (0-200); HDL Cholesterol 33 mg/dl; LDL Cholesterol Calculated 137 mg/dl; Triglycerides 196 mg/dl (0-150); VLDL Cholesterol 39 mg/dl
[2019-08-24] MEDS ORDERED: NICOTINE POLACRILEX 2 MG GUM MT PRN (09:29)
[2019-08-24] MEDS: ACETAMINOPHEN 325 MG TAB PO PRN (10:09)
--- NOTE | 2019-08-24 11:50 | Discharge Summary ---
Date of Service August 24, 2019 History of Present Illness Patient is known to us from a psychiatric consultation in 02/28/2019, when he was admitted medically for seizure activity, which occurred after he presented to the ER for chest pain. Psychiatric consultation was requested due to suicidal thoughts and self injury by cutting his thigh. He reported chronic self- injurious behavior, multiple psychosocial stressors, and history of multiple suicide attempts. He had been out of psychiatric treatment and not on medications for about 1 year, and endorsed command auditory hallucinations to harm himself. He was willing for inpatient psychiatric treatment, and once medically stable, was transferred to [facility] for inpatient treatment. He was also seen by neurology, and had a normal EEG; they recommended EMU at [facility] to clarify seizure disorder versus nonepileptic events, recommended discontinuing topiramate, gabapentin, and levetiracetam, and did not feel he needed an anticonvulsant until seizures were definitively diagnosed. At the time of discharge, he was only prescribed famotidine, ondansetron as needed, and EpiPen as needed. He returned to the ER 03/21/2019 with complaints of abdominal pain and emesis; while in the ER said he felt like he was going to have a seizure, requested Ativan, and was discharged home. He returned to the ER 03/23/2019, again for abdominal pain, had a negative CT of the abdomen and pelvis, and was observed to be feigning seizures in the waiting room. He was diagnosed with pseudoseizure and discharged home. He again presented to the ER 03/29/2019, reporting that he had had a seizure, and was admitted to the hospitalist service. He said he had been in [facility] when he observed a methamphetamine deal, was stung by a bee, then fell on the floor and hit his head, and had a seizure. He reported he was taking haloperidol 5 mg 3 times daily, Keppra 1500 mg daily, and gabapentin 300 mg twice daily, but had run out of medications over the past couple of days. Head and C-spine CT were negative. Neurology was consulted and recommended the patient be transferred to [facility] [place] monitoring, but the patient refused to go and then signed out AMA. He had an appointment with EMU in April. He returned to the ER 04/24/2019 with complaints of seizure, said he was not on medications due to lack of finances, and was given Ativan and Keppra, and advised to follow-up with neurology. He returned to the ER for 10/30/2019 with chief complaint of seizure, said he had been out of Keppra for about 1-1/2 weeks, and was again discharged with instructions to follow-up with neurology. He had a PCP appointment 08/16/[address] Kenyatta Burton, reported he stopped Haldol due to extrapyramidal symptoms and in efficacy, and was started on quetiapine 100 mg at bedtime. He also reported depression, passive SI, and PTSD, and was started on paroxetine 20 mg d aily, and referred for outpatient psychiatric care. He had run out of Keppra, and he and his girlfriend reported he was having frequent seizures, including one that morning; Keppra was prescribed 500 mg 3 times daily. Metformin 500 mg twice daily for PCOS was continued. On my assessment, the patient states that he is feeling extremely anxious, overwhelmed, with command auditory hallucinations to harm himself and urges to self-harm. He describes lifelong experience of voices "in my head, I thought, but I know soon I will be able to tell if they are real or not," which tell him to hurt and kill himself, that people are here to hurt him, and are saying "get out of here because you guys are just going to send me to state." He says he cannot tell if the voices are male or female, does not recognize them, and that there are several different voices which either whisper or scream. They have been present his whole life, as well as a a person named Tee who is "always with me, I don't like him and he doesn't like me, he is an asshole, tells me I am worthless and a piece of shit, points out on my insecurities." He says this person is "always behind my left shoulder," and has been there since he was 9 years old. These experience worsen when he is feeling overwhelmed, and urges to self-harm that intensified. Patient has been engaging in self-injurious behavior since childhood, typically cuts with a utility knife on his thighs, or scratch his skin until it bleeds. He states that anxiety "consumes most of my day," and endorses restlessness, feeling on edge, rocking back and forth. Asks for "something like Xanax," stating he used to take Xanax 4 mg a day and since then "nothing else has helped." He thinks that Paxil is making his mood and anxiety worse, his symptoms have worsened since it was started 1 week ago. Mood has been worsening for 6 months, with low energy, poor motivation, not wanting to get out of bed, decreased appetite and a 3 pound weight loss in the past week, and suicidal thoughts with multiple plans (which she has been experiencing for 1 month). Patient reports a history of manic episodes with decreased need for sleep, increased energy, talkative, elevated mood, difficulty focusing, and racing thoughts; last one occurred in 03/2019, and they typically last 3 to 7 days. Patient reports disordered eating, stating he used to restrict intake and induce vomiting when he was younger, and recently has been inducing vomiting after every meal in order to lose weight. Weight has been fluctuating the past few months. Denies excessive exercise/diuretics/laxatives. Patient reports paranoia, believing people are out to get him, which has been persistent and lifelong. No delusions or ideas of reference, thought reading or broadcasting. Patient reports frequent thoughts of harming others, as well as violence against others. Most recently had thoughts to throw rocks at his girlfriend's ex- girlfriend, damage her car, or beat her up, but denies plan or intent to act on these thoughts. Patient does not drive due to seizures, and never got the video EEG as recommended. Patient had lost insurance for several months, so had not been going to appointments or getting medications, and compliance has been spotty. Physical Exam Psychiatric Orientation: alert, oriented x 3 and cooperative (and pleasant) Apperance: appropriately dressed (casually; in t-shirt and scrub pants), + disheveled (short, dark hair appearing unkempt) and appeared stated age Eye Contact: + fair eye contact (seems distracted, occasionally glancing away to various areas of room) Motor Behavior: no abnormal motor movements and + psychomotor agitation (tapping foot rather rapidly, appearing mildly restless) Speech: normal rate/rhythm/volume of speech Affect: euthymic affect and mood congruent with affect Mood: no depressed mood ("Much better") and no anxious mood Thought Process: goal directed thought process, clear/coherent thought process and thought association intact Thought Content: reality based without delusions; not paranoid, no hopelessness and no worthlessness Suicidal Thoughts: denies suicidal thoughts and denies suicidal intent Homicidal Thoughts: denies homicidal thoughts Hallucinations: no auditory hallucinations and no visual hallucinations Cognition: attention grossly intact and language grossly intact Insight: + fair insight Judgement: + fair judgement Vital Signs (Past 24 Hours) Last Vital Signs Temp 36.7 C 08/24/19 10:33 Pulse 60 08/24/19 10:33 Resp 20 08/24/19 10:33 BP 119/83 08/24/19 10:33 Pulse Ox 98 08/24/19 10:33 Principal Diagnosis - Personality disorder - Bipolar 1 disorder - PTSD - Purging - Cannabis abuse - Polysubstance abuse Psychiatric Data 18-year-old transgender male (biological female) patient who prefers to go by "Willie". Pronouns in the discharge summary reflect patient's preferred male gender. On admission, patient reported lifelong psychiatric history of polysubstance abuse, mood, psychotic, and anxiety symptoms, abuse, unstable home environment and chaotic childhood. He presented with worsening mood and suicidal ideation/urges to self injure and was admitted voluntarily. His case is complex as patient endorses numerous psychiatric symptoms, also has poorly controlled medical conditions including morbid obesity, PCOS, and a question of a seizure disorder, but has not followed through on recommendations to complete the medical work-up, and has been chronically noncompliant with outpatient treatment and medications. Additionally there is a history of polysubstance abuse including heroin and methamphetamine, most recently smoking high potency THC products multiple times daily. Patient stated he came to this area with his girlfriend, whom he says is a psychiatric nurse, and they are living with the girlfriend's parents in [place]. Despite multiple hospitalizations/ER visits with recommendations to follow-up with neurology and psychiatry as an outpatient, patient has no mental health services and has not been in psychiatric treatment for over a year. PCP recently started paroxetine and quetiapine, and care has been coordinated with neurology regarding the need for an antiepileptic that ideally would also target mood instability. Neurology consultation was requested on admission to discuss an antiepileptic medication that may offer more support of mood stability and to allow for coordination of outpatient follow-up for further testing to rule out a formal seizure disorder versus pseudoseizures. Keppra was discontinued to it was recommended that patient initiate Trileptal at 300mg BID with outpatient neurology follow-up. Pt did report taking 300mg of Seroquel as an outpatient, later admitting that he falsified this report as he was only prescribed 100mg but felt it has been ineffective. Pt was also offered 50mg prn doses up to twice daily of quetiapine. Pt utilized this medication in addition to prn doses of hydroxyzine during his hospitalization. Early in patient's admission, he behavior was suggestive of a significant underlying personality disorder - likely borderline personality traits. Reports provided by patient are also consistent with a working diagnosis of bipolar 1 disorder. Patient's clinical presentation is complicated by chronic substance use. Pt was referred to [facility] for psychiatric medication management. Girlfriend and patient reported motivation to set up therapy and case management services on an outpatient basis, as both are requesting rapid discharge. As is more consistent with personality disorder traits, patient verbalized a rapid improvement in mood and resolution of SI. Both patient and girlfriend deny safety concerns related to discharge. Based on review of patient's case and their current presentation, risk of harm to self or others is no longer perceived to be acute. It is felt that continued inpatient psychiatric admission is likely to contribute to escalating behaviors and mood instability - leading to decision to discharge patient home with recommendation for outpatient follow-up. Management of symptoms on an outpatient basis seems the most appropriate and least restrictive setting. Pt seems appropriate for discharge with recommendation for consistent follow-up with outpatient psychiatric prescriber and call to set up a therapist and piano case maker. Outpatient neurology follow-up has been recommended and scheduled as well. Pt verbalized understanding of discharge plan reviewed and is agreeable with plan to be discharged home with girlfriend today. Day of Discharge Assessment Patient's case was reviewed and discussed during treatment team. Patient did submit a 72-hour notice on the day of admission requesting to leave treatment after a scheduled support meeting with his girlfriend this morning. After discussions and processing with staff throughout the day yesterday, patient has consistently denied continued suicidality and has been appropriately working towards a discharge and safety plan. Patient rated his mood a 7/10" stable yesterday evening. Patient was seen today following the family meeting with his girlfriend in order to assess readiness for discharge. Patient states that he is feeling "much better", and feels that his admission was beneficial. Patient states that he and his girlfriend have developed a plan to ensure safety after discharge, with girlfriend continuing to offer support and encourage appropriate outpatient psychiatric follow-up. Both parties denied any safety concerns related to the patient being discharged today, and both report motivation to ensure follow-up with psychiatric medication management and calling to request a therapist and piano case maker. Patient was made aware that discharge information and contact phone numbers are in his discharge summary. Patient denies any side effects related to medication adjustments, and does request that PRN quetiapine and hydroxyzine be prescribed on discharge to assist with episodes of increased anxiety. Fasting lab results were reviewed with the patient. Written safety plan was completed by the patient and reviewed with this provider. For the duration of our conversation the patient is future oriented and is able to verbalize numerous coping strategies and a sense of support in the outpatient setting. Patient continues to request to be discharged home, feeling that his treatment goals have been met. He denies any additional needs or concerns prior to his girlfriend picking him up. ROS: Constitutional: denied Cardiovascular: denied Respiratory: denied Gastrointestinal: denied Neurological: denied Psychiatric: denies symptoms other than stated above Total of at least 10 systems reviewed, pertinent positives as above and in HPI. Transition of Care Transition Of Care Record: was reviewed with the patient Advance Directives Advance Directives Information Provided: Yes Advance Directives: No Mental Health Advance Directive: No Advance Directives on File: No Living Will: No Power of Strip Machine Operator: No Advance Directives Reason:: Declines as Mental Health Visit. Risk Factors Assessment Presenting risk factors reviewed on discharge. Precipitating stressors mitigated by: admission for inpatient psychiatric observation and treatment, appropriate adjustments to medications to target symptoms, attendance of therapeutic treatment groups, development of healthy and effective coping strategies, involvement of outpatient supports, completion of a safety plan, confirmation of extra medications being secured, confirmation of guns and weapons being secured, discussion regarding substance abuse and effects on mental health diagnoses, treatment of medical conditions and education on diagnoses. Pt has demonstrated improvement in condition with regard to improvement in mood, resolution of SI, appropriate medication adjustments, referral for outpatient psychiatric services, and involvement in outpatient supports in discharge/safety planning. At this time, patient is requesting discharge and is no longer considered to be at acute risk of harm to himself or others. Pt will be discharged with recommendation for ongoing outpatient psychiatric treatment. Pt is at increased risk of harm to self or others when compared to the general population and there are several risk factors which are not likely to be mitigated in an inpatient treatment setting. At this time, patient is convincingly denying SI and has been communicating with his girlfriend to establish an appropriate safety plan. Pt is at chronically elevated risk of suicide. Male: No : Yes Do You Have Access To A Gun?: No Health Problems: Yes Mental Health Diagnoses: Yes Substance Use Disorders: Yes Previous Attempt: Yes Family History of Suicide: No Previous Psychiatric Hospitalization: Yes Hopelessness: Yes Smoker: Yes Protective Factors Assessment Mandaeism Beliefs: No : No Responsible for Young Children: No Employed: Yes ([employer]) Stable Relationships: Yes Supportive Family: No Good Rapport with Provider: No Tobacco Cessation at Discharge Tobacco Cessation Medication Prescribed at Discharge: Offered & Prescribed (pt accepted prescription for nicotine patch and nicotine gum) Practical counseling provided including: recognizing danger situations, developing coping skills and providing basic information about quitting Tobacco Cessation Outpatient Followup: [facility] made [facility] ([facility] ) Total Time Total Time Spent: Greater Than 30 Minutes Total Time Includes: Examination of the patient, Discharge Planning, Medication Reconciliation and Communication with other providers Discharge Data Consultations 08/23/19 10:49 Consult Neurology Routine Lab Results 08/22/19 08/22/19 08/22/19 23:51 23:51 23:51 WBC 8.55 RBC 5.22 Hgb 14.6 Hct 44.0 MCV 84.3 MCH 28.0 MCHC 33.2 RDW Std Deviation 42.5 RDW Coeff of Laessandra 13.8 Plt Count 337 MPV 11.0 H Immature Gran % (Auto) 0.1 Neut % (Auto) 54.1 Lymph % (Auto) 34.7 [place] % (Auto) 7.5 Eos % (Auto) 3.4 Baso % (Auto) 0.2 Neut # (Auto) 4.62 Lymph # (Auto) 2.97 [place] # (Auto) 0.64 H Eos # (Auto) 0.29 Baso # (Auto) 0.02 Immature Gran # (Auto) 0.01 Sodium 143 Potassium 4.3 Chloride 109 H Carbon Dioxide 26 Anion Gap 8.0 BUN 10 Creatinine 0.76 Est Cr Clr Drug Dosing 179.4 Est GFR ( Amer) 131.8 Est GFR (Non-Af Amer) 113.7 BUN/Creatinine Ratio 13.0 Glucose 90 POC Glucose Fasting Glucose Calcium 8.5 Total Bilirubin 0.2 AST 16 ALT 39 Alkaline Phosphatase 110 Total Protein 8.1 Albumin 3.9 Globulin 4.2 H Albumin/Globulin Ratio 0.9 Triglycerides Cholesterol LDL Cholesterol, Calc VLDL Cholesterol, Calc HDL Cholesterol Cholesterol/HDL Ratio TSH 1.680 HCG, Qual Urine Color Urine Appearance Urine pH Ur Specific [place] Urine Protein Urine Glucose (UA) Urine Ketones Urine Blood Urine Nitrite Urine Bilirubin Urine Urobilinogen Ur Leukocyte Esterase Urine WBC (Auto) Urine RBC (Auto) U Hyaline Cast (Auto) U Epithel Cells (Auto) Urine Bacteria (Auto) Salicylates 2.7 L Urine Opiates Screen Ur Methadone, Qual Acetaminophen 11 Urine Barbiturates Ur Phencyclidine (PCP) U Amphetamin/Meth Scrn MDMA (Ecstasy) Screen U Benzodiazepines Scrn Ur Cocaine Metabolite U Marijuana (THC) Screen Ethyl Alcohol mg/dL 08/22/19 08/22/19 08/23/19 23:51 23:55 00:00 WBC RBC Hgb Hct MCV MCH MCHC RDW Std Deviation RDW Coeff of Alessandra Plt Count MPV Immature Gran % (Auto) Neut % (Auto) Lymph % (Auto) [place] % (Auto) Eos % (Auto) Baso % (Auto) Neut # (Auto) Lymph # (Auto) [place] # (Auto) Eos # (Auto) Baso # (Auto) Immature Gran # (Auto) Sodium Potassium Chloride Carbon Dioxide Anion Gap BUN Creatinine Est Cr Clr Drug Dosing Est GFR ( Amer) Est GFR (Non-Af Amer) BUN/Creatinine Ratio Glucose POC Glucose Fasting Glucose Calcium Total Bilirubin AST ALT Alkaline Phosphatase Total Protein Albumin Globulin Albumin/Globulin Ratio Triglycerides Cholesterol LDL Cholesterol, Calc VLDL Cholesterol, Calc HDL Cholesterol Cholesterol/HDL Ratio TSH HCG, Qual Negative Urine Color Urine Appearance Urine pH Ur Specific [place] Urine Protein Urine Glucose (UA) Urine Ketones Urine Blood Urine Nitrite Urine Bilirubin Urine Urobilinogen Ur Leukocyte Esterase Urine WBC (Auto) Urine RBC (Auto) U Hyaline Cast (Auto) U Epithel Cells (Auto) Urine Bacteria (Auto) Salicylates Urine Opiates Screen Neg Ur Methadone, Qual Neg Acetaminophen Urine Barbiturates Neg Ur Phencyclidine (PCP) Neg U Amphetamin/Meth Scrn Neg MDMA (Ecstasy) Screen Neg U Benzodiazepines Scrn Neg Ur Cocaine Metabolite Neg U Marijuana (THC) Screen Pos H Ethyl Alcohol mg/dL < 3.0 08/23/19 08/23/19 08/24/19 00:00 08:52 07:56 WBC RBC Hgb Hct MCV MCH MCHC RDW Std Deviation RDW Coeff of Alessandra Plt Count MPV Immature Gran % (Auto) Neut % (Auto) Lymph % (Auto) [place] % (Auto) Eos % (Auto) Baso % (Auto) Neut # (Auto) Lymph # (Auto) [place] # (Auto) Eos # (Auto) Baso # (Auto) Immature Gran # (Auto) Sodium Potassium Chloride Carbon Dioxide Anion Gap BUN Creatinine Est Cr Clr Drug Dosing Est GFR ( Amer) Est GFR (Non-Af Amer) BUN/Creatinine Ratio Glucose POC Glucose 95 Fasting Glucose 81 Calcium Total Bilirubin AST ALT Alkaline Phosphatase Total Protein Albumin Globulin Albumin/Globulin Ratio Triglycerides 196 H Cholesterol 209 H LDL Cholesterol, Calc 137 VLDL Cholesterol, Calc 39 HDL Cholesterol 33 Cholesterol/HDL Ratio 6 TSH HCG, Qual Urine Color Yellow Urine Appearance Cloudy A Urine pH 5.5 Ur Specific [place] 1.029 Urine Protein Negative Urine Glucose (UA) Negative Urine Ketones Negative Urine Blood Negative Urine Nitrite Negative Urine Bilirubin Negative Urine Urobilinogen Negative Ur Leukocyte Esterase Trace H Urine WBC (Auto) 10-30 H Urine RBC (Auto) 10-30 H U Hyaline Cast (Auto) 1-5 U Epithel Cells (Auto) >30 H Urine Bacteria (Auto) 1+ H Salicylates Urine Opiates Screen Ur Methadone, Qual Acetaminophen Urine Barbiturates Ur Phencyclidine (PCP) U Amphetamin/Meth Scrn MDMA (Ecstasy) Screen U Benzodiazepines Scrn Ur Cocaine Metabolite U Marijuana (THC) Screen Ethyl Alcohol mg/dL 08/24/19 08:13 WBC RBC Hgb Hct MCV MCH MCHC RDW Std Deviation RDW Coeff of Alessandra Plt Count MPV Immature Gran % (Auto) Neut % (Auto) Lymph % (Auto) [place] % (Auto) Eos % (Auto) Baso % (Auto) Neut # (Auto) Lymph # (Auto) [place] # (Auto) Eos # (Auto) Baso # (Auto) Immature Gran # (Auto) Sodium Potassium Chloride Carbon Dioxide Anion Gap BUN Creatinine Est Cr Clr Drug Dosing Est GFR ( Amer) Est GFR (Non-Af Amer) BUN/Creatinine Ratio Glucose POC Glucose 84 Fasting Glucose Calcium Total Bilirubin AST ALT Alkaline Phosphatase Total Protein Albumin Globulin Albumin/Globulin Ratio Triglycerides Cholesterol LDL Cholesterol, Calc VLDL Cholesterol, Calc HDL Cholesterol Cholesterol/HDL Ratio TSH HCG, Qual Urine Color Urine Appearance Urine pH Ur Specific [place] Urine Protein Urine Glucose (UA) Urine Ketones Urine Blood Urine Nitrite Urine Bilirubin Urine Urobilinogen Ur Leukocyte Esterase Urine WBC (Auto) Urine RBC (Auto) U Hyaline Cast (Auto) U Epithel Cells (Auto) Urine Bacteria (Auto) Salicylates Urine Opiates Screen Ur Methadone, Qual Acetaminophen Urine Barbiturates Ur Phencyclidine (PCP) U Amphetamin/Meth Scrn MDMA (Ecstasy) Screen U Benzodiazepines Scrn Ur Cocaine Metabolite U Marijuana (THC) Screen Ethyl Alcohol mg/dL Hospital Course (1) Suicidal ideation: 08/22 -continue voluntary hospitalization, suicide checks for safety. Encourage group attendance and participation, work on healthy coping skills and discharge safety plan. -Recommend family meeting with girlfriend whom he lives with. (2) Bipolar 1 disorder: 08/22 -patient reports a history consistent with manic and depressive episodes, currently in a depressive episode x 6 months. Numerous past inpatient hospitalizations, but has not been in outpatient treatment for over 1 year. -Reviewed mood stabilizing medication options, ideally would choose a mood stabilizer that also acts as an anticonvulsant. Also discussed with neurology, Dr. Batres: Depakote is a good mood stabilizer and would help with anger outbursts as well as seizure disorder, but patient is biologically female, has PCOS, is overweight, and states she may want to have a child in the future, which argue against its use. Ali Chuk is a good mood stabilizer, but concerns for poor compliance, dangerousness and overdose, and it does not have anticonvulsant properties. Lamotrigine is a week or mood stabilizer, and patient's poor compliance would be concerning due to risk of SJS. Carbamazepine and oxcarbazepine are good options, discussed oxcarbazepine with Dr. Batres -Recommend referral for BCM, psychiatrist, and therapist. 08/23 - Fasting labs obtained: glucose WNL, triglycerides elevated at 196, total cholesterol elevated at 209. LDL - 137, HDL - 33. (3) PTSD (post-traumatic stress disorder): 08/22 -refer for outpatient therapy. (4) Personality disorder: 08/22 -patient endorses symptoms of borderline personality disorder; continue to explore and gather collateral and historical information. -Patient has multiple questions about how to handle urges to self injure. Reviewed expectations to come to staff if feeling unsafe, to actively work on coping skills in advance of crisis situation and identify things he can use for distraction, and options for use of safe room or one-on-one with staff if needed. Patient expressed understanding and willingness to come to staff, does not feel one-to-one is needed at this time. (5) Unspecified psychosis: 08/22 -patient reports lifelong psychotic symptoms, not classic for schizophrenia or psychotic mood disorder. Differential includes substance- induced, complex PTSD, borderline personality disorder, malingering. -Continue to expand the database, attempt to get past records, and collateral information. -Patient requesting antipsychotic medication; reviewed that these medications can lower the seizure threshold and contribute to medical problems including obesity, metabolic syndrome, cardiac risk. Patient reports having been on multiple antipsychotics in the past, PCP recently started quetiapine which patient has been on in the past at doses up to 600 mg. This has been helpful for anxiety and sleep, can also treat bipolar depression and psychosis, so is not a bad choice, although will require monitoring given risk of side effects. Continue 300 mg at bedtime, and add 50 mg twice daily as needed dose. Patient would also like to have haloperidol available as needed, will order 5 mg as needed psychosis. (6) Cannabis abuse: 08/22 -patient reports smoking high potency THC products many times throughout the day. This is likely exacerbating, if not causing, chronic psychotic symptoms. Discussed these concerns with the patient today, as well as unknown aspects of interactions with psychotropic medications, and re commendations to abstain from THC/centrally acting agents while being prescribed psychotropic medications. Continue to provide psychoeducation (7) Seizure disorder: 08/22 -reviewed available information in the EMR; history complicated by sporadic care, noncompliance, and lack of EEG video monitoring to confirm seizure disorder. Neurology consult requested and reviewed the case with Dr. Batres, appreciate input and assistance. -Continue seizure precautions. Discussed the need to balance treating psychiatric symptoms with psychotropic medications which lower the seizure threshold with the need to minimize seizure risk with the patient, who expressed understanding. 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 (8) Polysubstance abuse: 08/22 -history of abusing "everything there is" per patient, history of serious overdose (meth, heroin) requiring hospitalization, and ongoing illicit substance use. Avoid medications that are addictive/abusable. (9) Obesities, morbid: 08/22 -encouraged healthy diet and regular exercise, follow-up with PCP for ongoing monitoring and treatment. (10) Purgin/14 -patient reports purging after every meal. Electrolytes all normal in the ER. Monitor her after meals, encourage development of healthy coping skills. Consider need for ED treatment (11) PCOS (polycystic ovarian syndrome): Continue home dose of metformin. Mental Health & Subst Abuse Tx Psychiatrist Name of Psychiatrist: Uriel Mccormick Psychiatrist's Date of Appointment with Psychiatrist: 09/27/19 Time of Appointment with Psychiatrist: 1:30pm Psychiatric Appointment Comment: [id number] [facility] Psychiatrist Release of Information: Obtained, Reviewed and Signed Therapist Name of Therapist: Recommendation for therapy - [facility] Therapy Appointment Comment: [id number] [place] [address] Computed Tomography Technician Name of Computed Tomography Technician: Recommendation for case management: [facility] Phone Number for Computed Tomography Technician: [phone] Case Management Appointment Comment: [address] [facility], [address], [place] [address] Post Discharge Appointments Primary Care Physician Name Of Family Doctor: TREVOR [facility] Date of Appointment with PCP: 08/29/19 Time of Appointment with PCP: 10:20am Provider Appointment Comment: [id number] [facility] Release of Information: Obtained, Reviewed and Signed Neurologist Name of Neurologist: Dr. Salas Neurologist's Date of Appointment with Neurologist: 08/25/19 Time of Appointment with Neurologist: 3:00pm Neurology Appointment Comment: [address] [facility], [place] Release of Information for Neurologist: Obtained, Reviewed and Signed Smoking Cessation Counseling Tobacco Cessation Medication Prescribed at Discharge: Offered & Prescribed (pt accepted prescription for nicotine patch and nicotine gum) Tobacco Cessation Counseling: Referral Faxed Contact Information Discharge Discharge Address: [address] [place] [address] Discharge Plan Discharge Items Patient Disposition: Home - Self-Care Reason For Visit: MDD, SEVERE Discharge Diagnosis: - Bipolar 1 disorder - PTSD - Cannabis abuse Condition on Discharge: Fair Activity: Resume your previous activity Non-emergency contact: Primary Care Provider, Neurologist, Psychiatrist and Therapist Call non-emergency contact if: you have any medication questions and your sym ptoms worsen Follow-up/Referrals: Aurelia Villeda [Primary Care Provider] - Diet: Regular Addtl Attending Provider Instructions: SPECIAL CARE INSTRUCTIONS: 1. Follow through with your scheduled aftercare appointments. If unable to keep an appointment, please call to reschedule. 2. Take your medication only as prescribed. Medication should not be changed or stopped without the approval of your doctor. In the event of worsening symptoms or concerns about side effects, contact your doctor immediately. 3. Utilize new healthy coping skills, anger management skills, and stress management skills learned during your hospitalization. Journal feelings and process them with a support person. Identify stressors or situations that may result in relapse, deterioration or inappropriate behaviors and develop a plan to deal with those issues. 4. If your coping skills are ineffective and you are in crisis, contact your outpatient providers for direction. If unable to reach your providers, please call the CAN HELP LINE AT or go to the closest Emergency Room. 5. Avoid alcohol and un-prescribed drugs. 6. You have been provided with the Mental Health Advance Directives Pamphlet for your review. AFTERCARE APPOINTMENTS: * Please call your insurance company prior to your scheduled appointment to confirm your aftercare providers are covered. Take your insurance information to your appointments. WHO TO CALL AND WHEN: Medical Emergencies: For questions or emergencies related to your hospital stay, please contact the Inpatient Behavioral Health Unit at [phone]. A speech and language clinician is on-call 01/09 for the Behavioral Health Unit for emergencies At any time you feel your situation is an emergency, you may also call 911 immediately. Your Discharge Instructions noted above were prepared by provider Idalia Hutchinson PA-C. Pending Studies at Discharge: No Stand-Alone Forms: [facility], Smoking Cessation, Suicide Prevention Resources Medications and DC Order Prescriptions: New hydroxyzine HCl 25 mg Tablet 25 mg PO Q4H PRN (Reason: anxiety) Qty: 20 RF: 0 quetiapine 25 mg Tablet 50 mg PO BID PRN (Reason: anxiety) 30 Days Qty: 30 RF: 0 oxcarbazepine 300 mg tablet 300 mg PO BID 30 Days Qty: 60 RF: 0 quetiapine 300 mg Tablet 300 mg PO HS 30 Days Qty: 30 RF: 0 nicotine (polacrilex) [Nicorelief] 2 mg Gum 2 mg MT PRN PRN (Reason: nicotine cravings) Qty: 100 RF: 0 nicotine 21 mg/24 hr patch 24 hour 1 patch TD DAILY Qty: 28 RF: 0 Continued metformin 500 mg tablet 500 mg PO BID Qty: 60 RF: 2 epinephrine [EpiPen] 0.3 mg/0.3 mL auto-injector 0.3 mg IM DIRECTED PRN (Reason: Anaphylaxis) Qty: 1 RF: 2 Discontinued paroxetine HCl [Paxil] 20 mg tablet 20 mg PO DAILY Qty: 30 RF: 2 levetiracetam [Keppra] 500 mg tablet 500 mg PO TID Qty: 90 RF: 2 quetiapine [Seroquel] 100 mg tablet 300 mg PO HS RF: 0 Discharge Orders: Discharge Order (Routine); Ordered 08/24/19 Ordered By: Idalia Hutchinson Admission Data Admit Date/Time: 08/23/19 02:06 Attending Provider: Radha Evangelista Admit Provider: El Mendez Primary Care Provider: Aurelia Villeda Other Providers: Yair Batres Other Interventions: Discharge Summary Assessment (RN) Last Done: 08/24/19 10:33 PSY Interdisciplinary Discharge Planning Last Done: 08/24/19 11:41 DC Date/Time DO NOT enter until pt leaves facility: 08/24/19 11:57 Coding Level of Care Code 95544 D/C day mgmt > 30 min Diagnoses Suicidal ideation R45.851 Bipolar 1 disorder F31.9 PTSD (post-traumatic stress disorder) F43.10 Personality disorder F60.9 Unspecified psychosis F29 Cannabis abuse F12.10 Seizure disorder G40.909 Polysubstance abuse F19.10 Obesities, morbid E66.01 Purging F50.2 PCOS (polycystic ovarian syndrome) E28.2
[2019-08-25 01:09] LABS: Marijuana Quant, GCMS Urine 233 ng/mL (<5)
== END 2019-08-24 11:57 | disposition home or self-care (01) | DRG 885 ==
LOC: ED 23:25 → 3S 08-23 02:06

== ENCOUNTER 2019-11-22 19:35 | Observation (INO) ==
[2019-11-22] MEDS ORDERED: SODIUM CHLORIDE 0.9% 1000ML 1,000 ML IV ONE (19:50)
--- NOTE | 2019-11-22 20:02 | Emergency Department Note ---
History of Present Illness General Chief complaint: Overdose (Accidental) Stated complaint: VOMITING, TOOK TOO MUCH TYLENOL Time Seen by Provider: 11/22/19 19:44 Source: patient Mode of arrival: ambulatory Limitations: no limitations History of Present Illness Provider complaint: Accidental Tylenol overdose Onset (ago): day(s) 2 Location: abdomen Radiation: non-radiation Severity: moderate Pain Consistency: + constant Maximum Pain Intensity: 7 Current Pain Intensity: 7 Quality: + constant Relieved By: + none Exacerbated By: + eating and + movement Associated symptoms: + loss of appetite, + malaise and + nausea/vomiting; no cough, no fever/chills and no shortness of breath Treatments prior to arrival: none This is a 19-year-old female who identifies as male who presents complaining of an accidental Tylenol overdose. Patient states she injured her foot over the weekend and was seen and evaluated Thursday at [facility]. States she was told to start taking Tylenol and ibuprofen for pain. States she began taking Tylenol, however did not read a review the bottle dosing instructions. She states she thought they were 200 mg tablets and she was taking 4 or 5 tablets at a time. She states she began not feeling well last night, and after taking several doses today reviewed the bottle and realized she was overdosing on Tylenol daily over the last 48 hours. She denies any other coingestions or other new medications. Denies any concurrent use of alcohol or recreational drugs. Patient states last evening she began having decreased appetite, nausea, had one episode of vomiting. Denies any coffee-ground appearance or obvious blood in the emesis. Patient denies any change in her bowel movements or urine. States she has diffuse abdominal tenderness although it is worse in the right upper quadrant. Patient admits to a prior intentional Tylenol overdose which resulted in her being admitted to [facility] in the intensive care unit for several days. She states this was not intentional this was accidental. Patient denies fevers or chills, cough or URI symptoms. Pt seen during a time of high acuity and national emergency pandemic while wearing PPE. Home Medications Home Medications Medication Instructions Recorded Confirmed Type metformin 500 mg tablet 500 mg PO BID #60 tab 08/16/19 11/22/19 Rx quetiapine 50 mg PO DAILY PRN 11/22/19 11/22/19 History sumatriptan succinate See Rx Instructions PO .COMPLEX 11/22/19 11/22/19 History PRN MDD 3 Tablets/Week quetiapine [Seroquel] 400 mg PO HS #30 tab 11/23/19 Rx Allergies Allergy/AdvReac Type Severity Reaction Status Date / Time bee venom protein (honey bee) Allergy Severe Anaphylaxis Verified 11/22/19 22:02 Penicillins Allergy Severe Itchiness Verified 11/22/19 22:02 latex Allergy Intermediate Skin Tony Verified 11/22/19 22:02 Past Med/Surg History Medical History Asthma Bipolar 1 disorder Cannabis abuse Migraine without aura Obesities, morbid PCOS (polycystic ovarian syndrome) Personality disorder Polysubstance abuse PTSD (post-traumatic stress disorder) Purging Seizure-like activity Unspecified psychosis Surgical History No pertinent past surgical history S/P appendectomy S/P cholecystectomy S/P tonsillectomy Family History Mother Hypertension Diabetes Breast cancer Ovarian cancer Father Epilepsy Prostate cancer Grandmother (Paternal) Breast cancer Uncle Myocardial infarction Other No significant family history Denies family history of Colorectal cancer Social History Smoking Status: Current every day smoker Tobacco Type: Cigarettes Age Started Using Tobacco: 9; Cigarettes Per Day: 10; Second Hand Exposure: Yes; Hx Alcohol Use: No Hx Substance Use: Yes Last Used Substance: Unknown Last Used Substance Other:: 01/21/2019 Substance Use Type Other:: meth last used 01/21/2019 Preferred Language: Tongan Communication Ability: Effective Emblem Drawer In Required: No Beliefs That Will Affect Care: None Current Living Situation: Significant Other current occupational status: unemployed current occupation: Starts at [employer] tomorrow. Feels Safe at Home: Yes Dental Care, Regularly: No Physical Activity Frequency: Does not Exercise Seatbelt Use: never Sunscreen Use: No Assistive Devices: None Review of Systems See HPI for pertinent positives & negatives. and A total of 10 systems reviewed and were otherwise negative Physical Exam Vital Signs Vital Signs - 24 hr 11/22/19 19:37 11/22/19 21:01 11/22/19 21:18 Temperature 37.2 C Temperature Source Oral Pulse Rate 129 H 91 H 90 Respiratory Rate 20 21 14 Respiratory Effort / Characteristics Non-Labored Spontaneous Respiratory Depth Normal Blood Pressure 147/109 H 166/116 H Blood Pressure Mean 121 120 Pulse Oximetry 98 Oxygen Delivery Method Room Air Sepsis New/Unexplained Change in Mental Status N/A Sepsis Action Taken by Nursing MD Previously Notified GENERAL: alert, well appearing, well nourished, no distress, non-toxic, obese EYE EXAM: normal conjunctiva, PERRL and EOM's grossly intact OROPHARYNX: no exudate, no erythema, lips, buccal mucosa, and tongue normal and mucous membranes are moist NECK: supple, no nuchal rigidity, no adenopathy, non-tender LUNGS: Clear to auscultation. Normal chest wall mechanics, no w/r/r HEART: no murmurs, S1 normal and S2 normal ABDOMEN: abdomen soft, diffuse tenderness with palpation, worse in the right upper quadrant, normo-active bowel sounds, no masses, no rebound or guarding. BACK: Back is symmetrical on inspection and there is no deformity, no midline tenderness, no CVA tenderness. SKIN: no rashes and no bruising UPPER EXTREMITIES: upper extremities are grossly normal. FROM, nml pulses b/l. LOWER EXTREMITIES: No pitting edema. FROM, nml pulses b/l. NEURO EXAM: Normal sensorium, cranial nerves II-XII grossly intact, normal speech, no gross weakness of arms, no gross weakness of legs. Gross sensation intact. Course Course 2057: Discussed with Poison Control. If any elevation of LFTs or tylenol level, would recommend starting NAC. 2149: Pt states still having nausea, abdominal pain. Discussed results. Will order NAC and plan for medical admission. 2201: Discussed with Dr. Redman. Administered Medications Discontinued Medications Acetylcysteine (Acetylcysteine Iv 21 Hr Regimen (>40kg)) 1 ea IV NOW STA; P rotocol Stop: 11/22/19 21:55 Last Admin: 11/23/19 04:46 Dose: 1 ea Documented by: [id number] Diclofenac Sodium (Diclofenac Sod 1% Gel 100 Gm Tube) 2 gm EXT QID HETAL Stop: 12/23/19 16:59 Last Admin: 11/23/19 18:33 Dose: 2 gm Documented by: [id number] Enoxaparin Sodium (Enoxaparin Inj 40 Mg/0.4 Ml Syr) 40 mg SQ Q12H HETAL Stop: 12/23/19 08:59 Last Admin: 11/23/19 09:54 Dose: 40 mg Documented by: [id number] Sodium Chloride (Nss 1000ml) 1,000 mls @ 999 mls/hr IV .Q1H1M ONE Stop: 11/22/19 20:50 Last Infusion: 11/22/19 23:18 Dose: 0 mls/hr Documented by: [id number] Admin: 11/22/19 21:02 Dose: 999 mls/hr Documented by: [id number] Acetylcysteine 15,000 mg/ (Dextrose) 275 mls @ 200 mls/hr IV ONCE ONE Stop: 11/22/19 23:21 Last Infusion: 11/23/19 00:26 Dose: 0 mls/hr Documented by: [id number] Admin: 11/22/19 22:31 Dose: 200 mls/hr Documented by: [id number] Acetylcysteine 5,000 mg/ (Dextrose) 525 mls @ 125 mls/hr IV ONCE ONE Stop: 11/23/19 03:09 Last Infusion: 11/23/19 04:45 Dose: 0 mls/hr Documented by: [id number] Admin: 11/23/19 00:16 Dose: 125 mls/hr Documented by: [id number] Acetylcysteine 10,000 mg/ (Dextrose) 1,050 mls @ 62.5 mls/hr IV ONCE ONE Stop: 11/23/19 19:53 Last Admin: 11/23/19 04:44 Dose: 62.5 mls/hr Documented by: [id number] Potassium Chloride/Sodium Chloride (Normal Saline W/20 Meq Kcl) 20 meq in 1,000 mls @ 80 mls/hr IV .[id number] HETAL Stop: 12/22/19 23:55 Last Admin: 11/23/19 14:17 Dose: Not Given Documented by: [id number] Influenza Virus Vaccine Quadrival (Influenza Virus Quad Vaccine 0.5 Ml Syr) 0.5 ml IM .ONCE ONE Stop: 11/23/19 03:23 Last Admin: 11/23/19 16:06 Dose: Not Given Documented by: [id number] Ketorolac Tromethamine (Ketorolac Tromethamine 10 Mg Tablet) 10 mg PO Q6H PRN PRN Reason: Pain Stop: 11/28/19 07:14 Last Admin: 11/23/19 08:33 Dose: 10 mg Documented by: [id number] Pneumococcal Polyvalent Vaccine (Pneumococcal Polysaccharides 25 Mcg/0.5 Ml Vial/Syr) 25 mcg IM .ONCE ONE Stop: 11/23/19 03:25 Last Admin: 11/23/19 16:07 Dose: Not Given Documented by: [id number] Quetiapine Fumarate (Quetiapine Fumarate 300 Mg Tablet) 300 mg PO DAILY HETAL Stop: 12/23/19 08:59 Last Admin: 11/23/19 09:55 Dose: Not Given Documented by: [id number] Sumatriptan Succinate (Sumatriptan Succinate 25 Mg Tab) 25 mg PO PRN PRN PRN Reason: Migraine Headache Stop: 12/22/19 23:55 Last Admin: 11/23/19 16:13 Dose: 25 mg Documented by: [id number] Critical Care Time Critical Care Time: Yes Total Critical Care Time: 42 Critical care of 42 min performed to assess and manage high likelihood of life- threatening overdose, involving labs and imaging performed with assessment to evaluate acetaminophen toxicity diagnosis with frequent reassessment. This time includes bedside time, treatment discussions with patient/family/consultants, documentation time and excludes procedure time. Medical Decision Making Differential Diagnosis Overdose, toxicologic, infection, hypoglycemia, electrolyte abnormalities, cardiac sources, intracerebral event, neurologic, trauma, gastritis, peptic ulcer disease, GERD, gallbladder disease, pancreatitis, small bowel obstruction, acute coronary syndrome, pericarditis, ischemic bowel, irritable bowel disease, irritable bowel syndrome, appendicitis, diverticulitis, malignancy, hernia, urinary tract infection, torsion, [/ectopic (if female)], perforation, trauma, infectious. Medical Records Attestation: I reviewed the patient's medical records. Home Medications Current Medication List: was personally reviewed by me Laboratory Data Attestation: I reviewed the patient's lab results. Result diagrams: 11/22/19 20:19 11/23/19 08:53 Lab Results 11/22/19 11/22/19 11/22/19 Range/Units 20:19 20:19 20:19 WBC 8.00 (4.8-10.8) K/uL RBC 4.99 (4.2-5.4) M/uL Hgb 14.4 (12.0-16.0) g/dL Hct 43.6 (37-47) % MCV 87.4 (80-100) fL MCH 28.9 (25-34) pg MCHC 33.0 (32-36) g/dL RDW Std Deviation 41.4 (36.4-46.3) fL RDW Coeff of Alessandra 13.0 (11.5-14.5) % Plt Count 324 (130-400) K/uL MPV 11.6 H (7.4-10.4) fL Immature Gran % (Auto) 0.1 % Neut % (Auto) 58.6 % Lymph % (Auto) 32.8 % [place] % (Auto) 6.6 % Eos % (Auto) 1.6 % Baso % (Auto) 0.3 % Neut # (Auto) 4.69 (1.4-6.5) K/uL Lymph # (Auto) 2.62 (1.2-3.4) K/uL [place] # (Auto) 0.53 (0.11-0.59) K/uL Eos # (Auto) 0.13 (0-0.5) K/uL Baso # (Auto) 0.02 (0-0.2) K/uL Immature Gran # (Auto) 0.01 (0.00-0.02) K/uL PT 10.9 (9.0-12.0) Seconds INR 1.0 (0.9-1.1) Sodium 141 (136-145) mmol/L Potassium 3.9 (3.5-5.1) mmol/L Chloride 111 H (98-107) mmol/L Carbon Dioxide 23 (21-32) mmol/L Anion Gap 7.0 (3-11) BUN 10 (7-18) mg/dl Creatinine 0.72 (0.6-1.2) mg/dl Est Cr Clr Drug Dosing 177.0 ml/min Est GFR ( Amer) 139.7 Est GFR (Non-Af Amer) 120.6 BUN/Creatinine Ratio 14.3 (10-20) Glucose 99 (70-99) mg/dl Calcium 9.1 (8.5-10.1) mg/dl Magnesium 2.1 (1.8-2.4) mg/dl Total Bilirubin 0.2 (0.2-1) mg/dl AST 13 L (15-37) U/L ALT 18 (12-78) U/L Alkaline Phosphatase 95 (45-117) U/L Total Protein 7.9 (6.4-8.2) gm/dl Albumin 3.7 (3.4-5.0) gm/dl Globulin 4.1 H (2.5-4.0) gm/dl Albumin/Globulin Ratio 0.9 (0.9-2) Lipase 148 (73-393) U/L TSH 0.987 (0.300-4.500) uIu/ml HCG, Qual (Negative) Salicylates (2.8-20) mg/dl Urine Opiates Screen (Neg) Ur Methadone, Qual (Neg) Acetaminophen (10-30) ug/ml Urine Barbiturates (Neg) Ur Phencyclidine (PCP) (Neg) U Amphetamin/Meth Scrn (Neg) MDMA (Ecstasy) Screen (Neg) U Benzodiazepines Scrn (Neg) Ur Cocaine Metabolite (Neg) U Marijuana (THC) Screen (Neg) Ethyl Alcohol mg/dL (0-3) mg/dl 11/22/19 11/22/19 11/22/19 Range/Units 20:19 20:19 20:19 WBC (4.8-10.8) K/uL RBC (4.2-5.4) M/uL Hgb (12.0-16.0) g/dL Hct (37-47) % MCV (80-100) fL MCH (25-34) pg MCHC (32-36) g/dL RDW Std Deviation (36.4-46.3) fL RDW Coeff of Alessandra (11.5-14.5) % Plt Count (130-400) K/uL MPV (7.4-10.4) fL Immature Gran % (Auto) % Neut % (Auto) % Lymph % (Auto) % [place] % (Auto) % Eos % (Auto) % Baso % (Auto) % Neut # (Auto) (1.4-6.5) K/uL Lymph # (Auto) (1.2-3.4) K/uL [place] # (Auto) (0.11-0.59) K/uL Eos # (Auto) (0-0.5) K/uL Baso # (Auto) (0-0.2) K/uL Immature Gran # (Auto) (0.00-0.02) K/uL PT (9.0-12.0) Seconds INR (0.9-1.1) Sodium (136-145) mmol/L Potassium (3.5-5.1) mmol/L Chloride (98-107) mmol/L Carbon Dioxide (21-32) mmol/L Anion Gap (3-11) BUN (7-18) mg/dl Creatinine (0.6-1.2) mg/dl Est Cr Clr Drug Dosing ml/min Est GFR ( Amer) Est GFR (Non-Af Amer) BUN/Creatinine Ratio (10-20) Glucose (70-99) mg/dl Calcium (8.5-10.1) mg/dl Magnesium (1.8-2.4) mg/dl Total Bilirubin (0.2-1) mg/dl AST (15-37) U/L ALT (12-78) U/L Alkaline Phosphatase (45-117) U/L Total Protein (6.4-8.2) gm/dl Albumin (3.4-5.0) gm/dl Globulin (2.5-4.0) gm/dl Albumin/Globulin Ratio (0.9-2) Lipase (73-393) U/L TSH (0.300-4.500) uIu/ml HCG, Qual Negative (Negative) Salicylates 2.1 L (2.8-20) mg/dl Urine Opiates Screen (Neg) Ur Methadone, Qual (Neg) Acetaminophen 44 H (10-30) ug/ml Urine Barbiturates (Neg) Ur Phencyclidine (PCP) (Neg) U Amphetamin/Meth Scrn (Neg) MDMA (Ecstasy) Screen (Neg) U Benzodiazepines Scrn (Neg) Ur Cocaine Metabolite (Neg) U Marijuana (THC) Screen (Neg) Ethyl Alcohol mg/dL < 3.0 (0-3) mg/dl 11/22/19 Range/Units 21:00 WBC (4.8-10.8) K/uL RBC (4.2-5.4) M/uL Hgb (12.0-16.0) g/dL Hct (37-47) % MCV (80-100) fL MCH (25-34) pg MCHC (32-36) g/dL RDW Std Deviation (36.4-46.3) fL RDW Coeff of Alessandra (11.5-14.5) % Plt Count (130-400) K/uL MPV (7.4-10.4) fL Immature Gran % (Auto) % Neut % (Auto) % Lymph % (Auto) % [place] % (Auto) % Eos % (Auto) % Baso % (Auto) % Neut # (Auto) (1.4-6.5) K/uL Lymph # (Auto) (1.2-3.4) K/uL [place] # (Auto) (0.11-0.59) K/uL Eos # (Auto) (0-0.5) K/uL Baso # (Auto) (0-0.2) K/uL Immature Gran # (Auto) (0.00-0.02) K/uL PT (9.0-12.0) Seconds INR (0.9-1.1) Sodium (136-145) mmol/L Potassium (3.5-5.1) mmol/L Chloride (98-107) mmol/L Carbon Dioxide (21-32) mmol/L Anion Gap (3-11) BUN (7-18) mg/dl Creatinine (0.6-1.2) mg/dl Est Cr Clr Drug Dosing ml/min Est GFR ( Amer) Est GFR (Non-Af Amer) BUN/Creatinine Ratio (10-20) Glucose (70-99) mg/dl Calcium (8.5-10.1) mg/dl Magnesium (1.8-2.4) mg/dl Total Bilirubin (0.2-1) mg/dl AST (15-37) U/L ALT (12-78) U/L Alkaline Phosphatase (45-117) U/L Total Protein (6.4-8.2) gm/dl Albumin (3.4-5.0) gm/dl Globulin (2.5-4.0) gm/dl Albumin/Globulin Ratio (0.9-2) Lipase (73-393) U/L TSH (0.300-4.500) uIu/ml HCG, Qual (Negative) Salicylates (2.8-20) mg/dl Urine Opiates Screen Neg (Neg) Ur Methadone, Qual Neg (Neg) Acetaminophen (10-30) ug/ml Urine Barbiturates Neg (Neg) Ur Phencyclidine (PCP) Neg (Neg) U Amphetamin/Meth Scrn Neg (Neg) MDMA (Ecstasy) Screen Neg (Neg) U Benzodiazepines Scrn Neg (Neg) Ur Cocaine Metabolite Neg (Neg) U Marijuana (THC) Screen Pos H (Neg) Ethyl Alcohol mg/dL (0-3) mg/dl Imaging Data My Impression: KUB: Single view reviewed and interpreted by me, no obvious foreign body, no obvious bowel obstruction Blood Pressure Blood Pressure Findings: Elevated blood pressure Blood Pressure Disposition: further management by hospitalist MDM Narrative This is a 19-year-old patient who presents after accidental Tylenol overdose. Of note patient does have a history of mental illness and prior intentional Tylenol overdose. Patient remained hemodynamically stable in the emergency room. Labs drawn and sent. Due to concern for reported GI symptoms and abdominal pain and concern for a subacute to chronic acetaminophen toxicity, case was discussed with poison control. Due to elevated acetaminophen level and patient being symptomatic, patient was started on Acetadote. Case was discussed with hospitalist for additional evaluation and management. Patient had no vomiting here, although was nauseated. I do not suspect other additional acute GI pathology despite complaints of abdominal pain. I did discuss with the hospitalist the patient's prior mental health history. While she denied any intentional overdose at this time, patient may still benefit from mental health evaluation given her history of anxiety and depression. An order was placed for continuous cardiac monitoring. The monitor shows a rate of 82_ with normal sinus__ rhythm. Impression & Plan Acetaminophen overdose, Abdominal pain, Nausea Discharge Plan Visit Data Chief Complaint: Overdose (Accidental) Stated Complaint: VOMITING, TOOK TOO MUCH TYLENOL ED Provider: Kenyatta Mcdonough Discharge Problem: Acetaminophen overdose, Abdominal pain, Nausea Patient Disposition: Admitted As Inpatient Discharge Instructions Interventions: ED Discharge Assessment Last Done: 11/22/19 23:24 Discharge Problem: Acetaminophen overdose Qualifiers: Encounter type: initial encounter Injury intent: accidental or unintentional Qualified Code(s): T39.1X1A - Poisoning by 4-Aminophenol derivatives, accidental (unintentional), initial encounter Abdominal pain Qualifiers: Abdominal location: right upper quadrant Qualified Code(s): R10.11 - Right upper quadrant pain
[2019-11-22 21:04] LABS: Basophils # (auto) 0.02 K/uL (0-0.2); Basophils % (auto) 0.3 %; Eosinophils # (auto) 0.13 K/uL (0-0.5); Eosinophils % (auto) 1.6 %; Hematocrit (blood only) 43.6 % (37-47); Hemoglobin 14.4 g/dL (12.0-16.0); Immature Granulocytes # (auto) 0.01 K/uL (0.00-0.02); Immature Granulocytes % (auto) 0.1 %; Lymphocytes # (auto) 2.62 K/uL (1.2-3.4); Lymphocytes % (auto) 32.8 %; Mean Corpuscular Hemoglobin 28.9 pg (25-34); Mean Corpuscular Volume 87.4 fL (80-100); Mean Platelet Volume 11.6 fL (7.4-10.4); Monocytes # (auto) 0.53 K/uL (0.11-0.59); Monocytes % (auto) 6.6 %; Neutrophils # (auto) 4.69 K/uL (1.4-6.5); Neutrophils % (auto) 58.6 %; Platelet Count 324 K/uL (130-400); RDW Standard Deviation 41.4 fL (36.4-46.3); Red Blood Count 4.99 M/uL (4.2-5.4)
[2019-11-22 21:16] LABS: Prothrombin Time 10.9 Seconds (9.0-12.0)
[2019-11-22 21:20] LABS: Albumin Level 3.7 gm/dl (3.4-5.0); BUN Creatinine Ratio 14.3 (10-20); Calcium 9.1 mg/dl (8.5-10.1); Est GFR (African American) 139.7; Est GFR (Non-African American) 120.6; Magnesium 2.1 mg/dl (1.8-2.4); Potassium 3.9 mmol/L (3.5-5.1); Pregnancy Test, Serum Negative (Negative)
[2019-11-22 21:29] LABS: Amphetamines+Metham, Urine Neg (Neg); Barbiturates, Urine Neg (Neg); Benzodiazepine, Urine Neg (Neg); Cocaine, Urine Neg (Neg); MDMA (Ecstacy), Urine Neg (Neg); Methadone, Urine Neg (Neg); Opiate, Urine Neg (Neg); Phencyclidine, Urine Neg (Neg)
[2019-11-22 21:30] LABS: Salicylate 2.1 mg/dl (2.8-20)
[2019-11-22 21:31] LABS: Albumin Globulin Ratio 0.9 (0.9-2); Bilirubin,Total 0.2 mg/dl (0.2-1); Globulin 4.1 gm/dl (2.5-4.0); Thyroid Stimulating Hormone 0.987 uIu/ml (0.300-4.500); Total Protein 7.9 gm/dl (6.4-8.2)
[2019-11-22] MEDS ORDERED: AcetylCYSTEINE 15,000 MG in DEXTROSE 5% 200 ML IV ONE (21:54)
[2019-11-22] MEDS ORDERED: AcetylCYSTEINE IV 21 HR REGIMEN (>40KG) IV STA (21:54)
--- NOTE | 2019-11-22 22:33 | History & Physical Report ---
Date of Service November 22, 2019 Assessment & Plan (1) Acetaminophen overdose: Reports this was accidental. [facility] was contacted by the ED, and full Acetadote was started by protocol, and will be continued through admission NSS + KCl 20 mEq at 80 mils per hour Repeat LFTs and acetaminophen dose in a.m. Present on Admission?: Yes (2) Pseudoseizure: Pseudoseizure/personality disorder/bipolar 1 disorder- Continue quetiapine and sumatriptan. Consult psychiatry Present on Admission?: Yes (3) Personality disorder: See above Present on Admission?: Yes (4) Bipolar 1 disorder: See above Present on Admission?: Yes (5) PCOS (polycystic ovarian syndrome): Temporarily hold metformin during admission, and then resume upon discharge Present on Admission?: Yes (6) Cannabis abuse: Known ongoing issue Present on Admission?: Yes History of Present Illness Chief Complaint: The patient presents to the emergency department with concerns regarding an accidental Tylenol overdose. Primary Care Provider: Kenyatta Burton MD The patient is a 19-year-old female with a past medical history including pseudoseizure, purging, morbid obesity, cannabis abuse, polysubstance abuse, personality disorder, bipolar 1 disorder, GERD, PCOS, asthma and PTSD. She injured her right foot and ankle recently, and is being assessed for a potential Achilles tendon injury by her PCP, who was planning on referring her to orthopedic surgery. The patient reports that she was told to take ibuprofen and Tylenol for pain, and reports that because she thought the Tylenol pills were 200 mg tablets she was taking 4 or 5 tablets at a time over the past 48 hours. She has complained of decreased appetite, nausea, 1 episode of vomiting, and generalized abdominal discomfort that is worse in the right upper quadrant. She does have a history of a previous intentional Tylenol overdose required admission to the ICU at [facility]. Work-up in the emergency department included a urine drug screen with Tylenol level 44 and positive for marijuana. She reports that this Tylenol overdose was accidental, but she does think it would be a good idea to be seen by psychiatry this admission Allergies Allergy/AdvReac Type Severity Reaction Status Date / Time bee venom protein (honey bee) Allergy Severe Anaphylaxis Verified 11/22/19 22:02 Penicillins Allergy Severe Itchiness Verified 11/22/19 22:02 latex Allergy Intermediate Skin Tony Verified 11/22/19 22:02 Home Medications Home Medications Medication Instructions Recorded Confirmed Type metformin 500 mg tablet 500 mg PO BID #60 tab 08/16/19 11/22/19 Rx quetiapine 300 mg tablet 300 mg PO DAILY #30 tab 10/26/19 11/22/19 Rx acetaminophen [Tylenol Extra 500 mg PO DIRECTED PRN 11/22/19 11/22/19 History Strength] quetiapine 50 mg PO DAILY PRN 11/22/19 11/22/19 History sumatriptan succinate See Rx Instructions PO .COMPLEX 11/22/19 11/22/19 History PRN MDD 3 Tablets/Week Past Med/Surg History Medical History Asthma Bipolar 1 disorder Cannabis abuse Migraine without aura Obesities, morbid PCOS (polycystic ovarian syndrome) Personality disorder Polysubstance abuse PTSD (post-traumatic stress disorder) Purging Seizure-like activity Unspecified psychosis Surgical History No pertinent past surgical history S/P appendectomy S/P cholecystectomy S/P tonsillectomy Family History Mother Hypertension Diabetes Breast cancer Ovarian cancer Father Epilepsy Prostate cancer Grandmother (Paternal) Breast cancer Uncle Myocardial infarction Other No significant family history Denies family history of Colorectal cancer Social History Smoking Status: Current every day smoker Tobacco Type: Cigarettes Age Started Using Tobacco: 9; Cigarettes Per Day: 10; Second Hand Exposure: Yes; Do You Dip or Chew Tobacco: No; Tobacco Cessation Education Requested by Patient: No Hx Alcohol Use: No Hx Substance Use: Yes Last Used Substance: Unknown Last Used Substance Other:: 01/21/2019 Substance Use Type Other:: meth last used 01/21/2019 Preferred Language: Mohawk Communication Ability: Effective Mds Coordinator Required: No Beliefs That Will Affect Care: None Current Living Situation: Significant Other current occupational status: unemployed current occupation: Starts at [employer] tomorrow. Other Information That Helps Us Care for You: No Feels Safe at Home: Yes Safety Concerns: Feels Safe At This Time Dental Care, Regularly: No Physical Activity Frequency: Does not Exercise Seatbelt Use: never Sunscreen Use: No Assistive Devices: None Review of Systems Review of Systems: The patient denies chest pain, palpitations, shortness of breath, dyspnea on exertion, cough, lower extremity swelling, sore throat, fevers, chills, sweats, diarrhea , constipation, pelvic pain, blood in urine or stool, dysuria, urinary frequency or urgency, lightheadedness, dizziness, headache, memory loss, loss of consciousness, rash, abnormal bruising or bleeding, imbalance, focal or generalized weakness, numbness or tingling in arms or legs, generalized arthralgias or myalgias, back or neck pain, or night sweats. The review of systems is otherwise negative other than for that already noted above, and at least 10 systems have been reviewed. Physical Exam Physical Exam: The patient is awake, alert and oriented 3, well developed and well nourished, normocephalic and atraumatic, lying in bed and in no acute distress. HEENT--PERRL, EOMI, mucous membranes and oropharynx normal. Neck--supple. No JVD. No bruits. Thyroid normal, trachea midline, no adenopathy. Heart--normal S1 and S2. No murmurs, rubs or gallops. Lungs--clear bilaterally, no respiratory distress, no accessory muscle use. Abdomen--normal bowel sounds and soft. Nontender. Nondistended, morbidly obese. Extremities--no cyanosis or clubbing. No edema. Dermatologic--normal skin turgor, normal color, no abnormal lymph nodes, no rash. Neurologic--cranial nerves II through XII grossly intact. Rheumatologic--normal range of motion. Psychiatric--normal affect. Results & Data Results & Data ([facility]) Vital Signs (Past 12 Hours) Vital Signs Temp Pulse Resp BP Pulse Ox 11/22/19 22:09 76 23 161/95 H 11/22/19 22:08 70 25 H 11/22/19 21:18 90 14 11/22/19 21:01 91 H 21 166/116 H 11/22/19 19:37 99.0 F 129 H 20 147/109 H 98 Laboratory Results Laboratory Results WBC 8.00 K/uL (4.8-10.8) 11/22/19 20:19 RBC 4.99 M/uL (4.2-5.4) 11/22/19 20: Hgb 14.4 g/dL (12.0-16.0) 11/22/19 20: Hct 43.6 % (37-47) 11/22/19 20:19 MCV 87.4 fL (80-100) 11/22/19 20:19 MCH 28.9 pg (25-34) 11/22/19 20: MCHC 33.0 g/dL (32-36) 11/22/19 20: RDW Std Deviation 41.4 fL (36.4-46.3) 11/22/19 20: RDW Coeff of Alessandra 13.0 % (11.5-14.5) 11/22/19: Plt Count 324 K/uL (130-400) 11/22/19 20: MPV 11.6 fL (7.4-10.4) H 11/22/19 20: Immature Gran % (Auto) 0.1 % 11/22/19 20: Neut % (Auto) 58.6 % 11/22/19 20: Lymph % (Auto) 32.8 % 11/22/19 20:19 [place] % (Auto) 6.6 % 11/22/19 20: Eos % (Auto) 1.6 % 11/22/19 20: Baso % (Auto) 0.3 % 11/22/19 20:19 Neut # (Auto) 4.69 K/uL (1.4-6.5) 11/22/19 20: Lymph # (Auto) 2.62 K/uL (1.2-3.4) 11/22/19 20: [place] # (Auto) 0.53 K/uL (0.11-0.59) 11/22/19 20: Eos # (Auto) 0.13 K/uL (0-0.5) 11/22/19 20: Baso # (Auto) 0.02 K/uL (0-0.2) 11/22/19 20:19 Immature Gran # (Auto) 0.01 K/uL (0.00-0.02) 11/22/19 20: PT 10.9 Seconds (9.0-12.0) 11/22/19 20:19 INR 1.0 (0.9-1.1) 11/22/19 20:19 Sodium 141 mmol/L (136-145) 11/22/19 20:19 Potassium 3.9 mmol/L (3.5-5.1) 11/22/19 20:19 Chloride 111 mmol/L (98-107) H 11/22/19 20:19 Carbon Dioxide 23 mmol/L (21-32) 11/22/19 20:19 Anion Gap 7.0 (3-11) 11/22/19 20:19 BUN 10 mg/dl (7-18) 11/22/19 20:19 Creatinine 0.72 mg/dl (0.6-1.2) 11/22/19 20: Est Cr Clr Drug Dosing 177.0 ml/min 11/22/19 20:19 Est GFR ( Amer) 139.7 11/22/19 20:19 Est GFR (Non-Af Amer) 120.6 11/22/19 20:19 BUN/Creatinine Ratio 14.3 (-20) 11/22/19 20:19 Glucose 99 mg/dl (70-99) 11/22/19 20:19 Calcium 9.1 mg/dl (8.5-10.1) 11/22/19 20:19 Magnesium 2.1 mg/dl (1.8-2.4) 11/22/19 20:19 Total Bilirubin 0.2 mg/dl (0.2-1) 11/22/19 20:19 AST 13 U/L (15-37) L 11/22/19 20:19 ALT 18 U/L (12-78) 11/22/19 20:19 Alkaline Phosphatase 95 U/L (45-117) 11/22/19 20:19 Total Protein 7.9 gm/dl (6.4-8.2) 11/22/19 20:19 Albumin 3.7 gm/dl (3.4-5.0) 11/22/19 20:19 Globulin 4.1 gm/dl (2.5-4.0) H 11/22/19 20:19 Albumin/Globulin Ratio 0.9 (0.9-2) 11/22/19 20:19 Lipase 148 U/L (73-393) 10/13/20 20:19 TSH 0.987 uIu/ml (0.300-4.500) 11/22/19 20:19 HCG, Qual Negative (Negative) 11/22/19 20:19 Salicylates 2.1 mg/dl (2.8-20) L 11/22/19 20:19 Urine Opiates Screen Neg (Neg) 11/22/19 21:00 Ur Methadone, Qual Neg (Neg) 11/22/19 21:00 Acetaminophen 44 ug/ml (10-30) H 11/22/19 20:19 Urine Barbiturates Neg (Neg) 11/22/19 21:00 Ur Phencyclidine (PCP) Neg (Neg) 11/22/19 21:00 U Amphetamin/Meth Scrn Neg (Neg) 11/22/19 21:00 MDMA (Ecstasy) Screen Neg (Neg) 11/22/19 21:00 U Benzodiazepines Scrn Neg (Neg) 11/22/19 21:00 Ur Cocaine Metabolite Neg (Neg) 11/22/19 21:00 U Marijuana (THC) Screen Pos (Neg) H 11/22/19 21:00 Ethyl Alcohol mg/dL < 3.0 mg/dl (0-3) 11/22/19 20:19 Code Status & VTE Plan Code Status Full code VTE Prophylaxis Plan VTE Prophylaxis will be ordered: Yes PG Care Time/CCT Total # of Minutes Spent Total Time Spent with Patient: Total time spent is greater than 50% in pastry cook rdination of care (as documented) at patient's floor/unit and/or counseling patient: Coding Level of Care Code 46638 Initial Inpt Care Lvl 2 Diagnoses Acetaminophen overdose T39.1X1A Encounter type: initial encounter Injury intent: accidental or unintentional Pseudoseizure F44.5 Personality disorder F60.9 Bipolar 1 disorder F31.9 PCOS (polycystic ovarian syndrome) E28.2 Cannabis abuse F12.10 (1) Acetaminophen overdose Encounter type: initial encounter Injury intent: accidental or unintentional Qualified Code(s): T39.1X1A - Poisoning by 4-Aminophenol derivatives, accidental (unintentional), initial encounter
[2019-11-22] MEDS ORDERED: AcetylCYSTEINE 5,000 MG in DEXTROSE 5% 500 ML IV ONE (22:55)
[2019-11-22] MEDS ORDERED: ONDANSETRON INJ 2 MG/ML 2 ML VIAL IV PRN (23:56)
[2019-11-22] MEDS ORDERED: NSS + 20MEQ KCL 20 MEQ/1,000 ML BAG IV SCH (23:56)
[2019-11-22] MEDS ORDERED: QUEtiapine FUMARATE 25 MG TABLET PO PRN (23:56)
[2019-11-22] MEDS ORDERED: SUMAtriptan succinate 25 MG TAB PO PRN (23:56)
[2019-11-23] MEDS ORDERED: BENZONATATE 100 MG CAPSULE PO PRN (00:19)
[2019-11-23] MEDS ORDERED: AcetylCYSTEINE 10,000 MG in DEXTROSE 5% 1,000 ML IV ONE (02:55)
[2019-11-23] MEDS ORDERED: INFLUENZA VIRUS QUAD VACCINE 0.5 ML SYR IM ONE (03:22)
[2019-11-23] MEDS ORDERED: INFLUENZA ADMINISTRATION CHARGE ONE (03:22)
[2019-11-23] MEDS ORDERED: PNEUMOCOCCAL POLYSACCHARIDES 25 MCG/0.5 ML VIAL/SYR IM ONE (03:24)
[2019-11-23] MEDS ORDERED: PNEUMOCOCCAL ADMINISTRATION CHARGE ONE (03:24)
[2019-11-23] MEDS ORDERED: KETOROLAC TROMETHAMINE 10 MG TABLET PO PRN (07:15)
--- NOTE | 2019-11-23 08:00 | Hospitalist Progress Note ---
Date of Service November 23, 2019 Assessment & Plan Admission and Anticipated Discharge Date Admission Date: November 22, 2019 Results & Data Results & Data ([facility]) Vital Signs (Past 12 Hours) Vital Signs Temp Pulse Pulse Pulse Resp BP BP 11/23/19 07:46 36.8 C 63 18 137/87 11/23/19 03:00 36.8 C 70 20 143/83 H 11/23/19 02:00 90 11/23/19 00:00 36.6 C 71 20 151/98 H 11/22/19 23:01 83 22 162/119 H 11/22/19 23:00 92 H 21 11/22/19 22:31 62 19 111/95 11/22/19 22:30 65 18 11/22/19 22:10 70 18 11/22/19 22:09 76 23 161/95 H 11/22/19 22:08 70 25 H 11/22/19 21:18 90 14 11/22/19 21:01 91 H 21 166/116 H Pulse Ox 11/23/19 07:46 96 11/23/19 03:00 93 11/23/19 02:00 11/23/19 00:00 96 11/22/19 23:01 11/22/19 23:00 11/22/19 22:31 11/22/19 22:30 11/22/19 22:10 11/22/19 22:09 11/22/19 22:08 11/22/19 21:18 11/22/19 21:01
--- NOTE | 2019-11-23 08:55 | XRay Report ---
KUB HISTORY: Generalized abdominal pain. COMPARISON: Abdomen and pelvis CT 03/23/2019. FINDINGS: The bowel gas pattern is unremarkable. There are no dilated loops of small bowel to suggest an obstruction. No renal calculi. No ureteral calculi. No pneumoperitoneum or pneumatosis. Prior ch olecystectomy. Small amount of well-formed stool within the colon. IMPRESSION: Unremarkable KUB. ACT 112: Negative or not required by law. Electronically signed by: Aquilino Roque M.D. 11/23/2019 8:54 AM
[2019-11-23] MEDS ORDERED: ENOXAPARIN INJ 40 MG/0.4 ML SYR SQ SCH (09:00)
[2019-11-23 09:28] LABS: INR 1.1 (0.9-1.1); Prothrombin Time 11.9 Seconds (9.0-12.0)
[2019-11-23] MEDS: QUEtiapine FUMARATE 300 MG TABLET PO SCH ×2 (09:54→09:55)
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
[2019-11-23 10:14] LABS: Albumin Globulin Ratio 0.8 (0.9-2); Albumin Level 3.1 gm/dl (3.4-5.0); BUN Creatinine Ratio 13.5 (10-20); Bilirubin,Total 0.4 mg/dl (0.2-1); Calcium 8.4 mg/dl (8.5-10.1); Creatinine Clr Calc Pharmacy 208.5 ml/min; Est GFR (African American) 146.7; Est GFR (Non-African American) 126.5; Globulin 3.8 gm/dl (2.5-4.0); Potassium 4.3 mmol/L (3.5-5.1); Total Protein 6.9 gm/dl (6.4-8.2)
[2019-11-23] MEDS ORDERED: Nursing to Pharmacy Communication SCH (11:15)
--- NOTE | 2019-11-23 13:06 | Electrocardiogram Report ---
Test Reason : Blood Pressure : / mmHG Vent. Rate : 099 BPM Atrial Rate : 099 BPM P-R Int : 156 ms QRS Dur : 090 ms QT Int : 360 ms P-R-T Axes : 037 027 029 degrees QTc Int : 462 ms Normal sinus rhythm Normal ECG When compared with ECG of 24-APR-2019 23:56, No significant change was found Confirmed by Hilario Coronado ([id number]) on 11/23/2019 1:06:13 PM Referred By: REFERRED SELF Confirmed By:Hilario Coronado
--- NOTE | 2019-11-23 13:13 | Electrocardiogram Report ---
Test Reason : Blood Pressure : / mmHG Vent. Rate : 080 BPM Atrial Rate : 080 BPM P-R Int : 156 ms QRS Dur : 092 ms QT Int : 410 ms P-R-T Axes : 037 038 033 degrees QTc Int : 472 ms Normal sinus rhythm Normal ECG When compared with ECG of 22-NOV-2019 20:06, (unconfirmed) No significant change was found Confirmed by Hilario Coronado ([id number]) on 11/23/2019 1:13:24 PM Referred By: REFERRED SELF Confirmed By:Hilario Coronado
--- NOTE | 2019-11-23 15:42 | Discharge Summary ---
Date of Service November 23, 2019 Admission HPI Per Admitting Provider The patient is a 19-year-old female with a past medical history including pseudoseizure, purging, morbid obesity, cannabis abuse, polysubstance abuse, personality disorder, bipolar 1 disorder, GERD, PCOS, asthma and PTSD. She injured her right foot and ankle recently, and is being assessed for a potential Achilles tendon injury by her PCP, who was planning on referring her to orthopedic surgery. The patient reports that she was told to take ibuprofen and Tylenol for pain, and reports that because she thought the Tylenol pills were 200 mg tablets she was taking 4 or 5 tablets at a time over the past 48 hours. She has complained of decreased appetite, nausea, 1 episode of vomiting, and generalized abdominal discomfort that is worse in the right upper quadrant. She does have a history of a previous intentional Tylenol overdose required admission to the ICU at [facility]. Work-up in the emergency department included a urine drug screen with Tylenol level 44 and positive for marijuana. She reports that this Tylenol overdose was accidental, but she does think it would be a good idea to be seen by psychiatry this admission Admission Exam Per Admitting Provider The patient is awake, alert and oriented 3, well developed and well nourished, normocephalic and atraumatic, lying in bed and in no acute distress. KAPIL NT--PERRL, EOMI, mucous membranes and oropharynx normal. Neck--supple. No JVD. No bruits. Thyroid normal, trachea midline, no adenopathy. Heart--normal S1 and S2. No murmurs, rubs or gallops. Lungs--clear bilaterally, no respiratory distress, no accessory muscle use. Abdomen--normal bowel sounds and soft. Nontender. Nondistended, morbidly obese. Extremities--no cyanosis or clubbing. No edema. Dermatologic--normal skin turgor, normal color, no abnormal lymph nodes, no rash. Neurologic--cranial nerves II through XII grossly intact. Rheumatologic--normal range of motion. Psychiatric--normal affect. Principal Diagnosis Tylenol overdose, unintentional Discharge Exam Constitutional WD/WN, vitals as above + overweight ENMT external ear and nose normal, oropharynx normal Respiratory normal respiratory effort, lungs clear to auscultation Cardiovascular RRR, no murmur, no edema Gastrointestinal (Abdomen) Inspection/Auscultation: normal bowel sounds; abdomen not distended Percussion/Palpation: + abdomen tender (Mild, RUQ) and abdomen soft; no guarding Musculoskeletal Extremities: no cyanosis and no clubbing R foot: pain with dorsiflexion of the heel, tenderness over Achilles tendon Skin no rashes, warm and dry Neurologic patellar DTR's 2+ bilat, sensation intact and PERRL, EOMI, accommodation nl, no face palsy, no dysarthria Psychiatric Orientation: alert and oriented x 3 Affect: + anxious affect Mood: + anxious mood Lymphatic no cervical or axillary lymphadenopathy Discharge Data Allergies Allergy/AdvReac Type Severity Reaction Status Date / Time bee venom protein (honey bee) Allergy Severe Anaphylaxis Verified 11/22/19 22:02 Penicillins Allergy Severe Itchiness Verified 11/22/19 22:02 latex Allergy Intermediate Skin Tony Verified 11/22/19 22:02 Consultations 11/22/19 22:08 ED Decision to Admit Stat 11/22/19 23:56 Consult Case Management - Discharge Planning Routine Consult Psychiatry Routine Hospital Course (1) Acetaminophen overdose: Mr. Alexandre Don (Jake) is a FTM transgender male with PMHx significant for bipolar 1 disorder, GERD, previous intentional overdose with acetaminophen, asthma, cannabis use who was admitted for unintentional acetaminophen overdose. Acetaminophen overdose in patient with history of prior intentional overdose, bipolar 1 disorder, PTSD: - Patient confused dosing on home Tylenol and thought that the dosing for the tablets was 200mg (like ibuprofen), however his home tablets were 650mg. When he noticed the dose discrepancy he came to the ER for evaluation. - Throughout admission did not report suicidal ideation or intentionality. - Acetaminophen level was 44; patient was started on N-acetylcysteine protocol and LFTs, PT/INR, and acetaminophen levels were trended. - Patient had return to nondetectable acetaminophen level about 12 hours following start of TIFFANIE. - He was without changes in liver function and TIFFANIE was continued for 21 hours total. - Psychiatry was consulted given history of prior intentional OD to discuss mood changes and help determine intentionality. - Patient was adamant that this overdose was NOT intentional and that he has no SI. - Quetiapine home dose increased to 400mg qHS. - Provided outpatient psychiatry resources, and will have follow up regarding mood changes. - Patient was able to outline his safety plan, and his girlfriend felt safe taking him home. - He was felt to be safe for discharge home with psychiatry follow up and good social support. (2) Bipolar 1 disorder: (3) PTSD (post-traumatic stress disorder): (4) [id number] transgender person: Total Time Total Time Spent Total Time Spent (In Minutes): >30 Discharge Plan Discharge Items Patient Disposition: Home - Self-Care Reason For Visit: ACCIDENTAL ACETAMINOPHEN OVERDOSE Discharge Diagnosis: Tylenol overdose Activity: Per Instructions section Non-emergency contact: Primary Care Provider and Psychiatrist Call non-emergency contact if: you have any medication questions, your symptoms worsen, your pain is worsening and your temperature is above 101 Follow-up/Referrals: Kenyatta Burton MD [Primary Care Provider] - ([facility] will scheudle a follow up appointment for you to see your PCP. Office is currently closed to scheduled appointment. Asw/[employer] Tactical Air Controller will phone you 11/24/2019.) Diet: Regular Addtl Attending Provider Instructions: You were admitted to the hospital for tylenol poisoning. You were given a reversal agent to help your body metabolize the tylenol safely. You were seen by Psychiatry, who suggested you increase your dose of quetiapine to 400 milligrams daily. This prescription was sent to the [facility] in [place]. They talked with you about your mood changes and gave you resources to see a Psychiatrist outside of the hospital. It is important that you follow up on this to schedule an appointment. You were felt to be safe for discharge home. If you have shortness of breath, chest pain, worsening of your belly pain, fevers over 100.4, or any other symptoms that are concerning to you, please seek urgent medical evaluation. Pending Studies at Discharge: No Stand-Alone Forms: [facility], Smoking Cessation Medications and DC Order Prescriptions: New quetiapine [Seroquel] 200 mg Tablet 400 mg PO HS Qty: 30 RF: 0 Continued metformin 500 mg tablet 500 mg PO BID Qty: 60 RF: 2 quetiapine 25 mg tablet 50 mg PO DAILY PRN (Reason: Anxiety) RF: 0 sumatriptan succinate 25 mg tablet See Rx Instructions PO .COMPLEX MDD 3 Tablets/Week PRN (Reason: Migraine Headache) RF: 0 Discontinued quetiapine [Seroquel] 300 mg tablet 300 mg PO DAILY Qty: 30 RF: 2 acetaminophen [Tylenol Extra Strength] 500 mg Tablet 500 mg PO DIRECTED PRN (Reason: Pain) RF: 0 Discharge Orders: Discharge Order (Routine); Ordered 11/23/19 Ordered By: Paula Philippe/Other Patient Handouts: Diclofenac skin gel Admission Data Admit Date/Time: 11/22/19 22:31 Attending Provider: Harsha Blanc Admit Provider: Armond Redman Primary Care Provider: Kenyatta Burton Other Providers: Armond Redman ; Radha Evangelista Other Interventions: Discharge Summary Assessment (RN) Last Done: 11/23/19 18:17 Supervising Physician Co-Signing Physician Notes I personally examined the patient and verified all jarrett points of history and exam, discussed case, and agree with decision making with Dr Rich. only real complaint was R ankle pain. fell about 1-2 ft inversion injury almost immediate pain and swelling. was taking APAP for this - accidentally took too much, no intent. notes he's in a good place now compared to before. appreciative of care. vitals noted heent nc at mmm breathing unlabored no accessory muscles good effort cn 2-12 grossly intact gross motor and sensory intact no pallor or icterus. MSK R ankle in walking boot, underneath ~1+ periankle and anterior ankle edema, no bony tenderness, (+) ligamentous tenderness without any notable stepoff lateral ankle mortoise, similarly in heel/achilles region. painful ROM but has full ROM. neg clinical nursing director any direction, no notable ligamentous laxity. accidental APAP OD - fortunatley no bump in LFTs and no bump in INR. had NAC protocol, labs reassuring, stable for home ankle sprain - examines as grade 1 sprain (additionally notes that xrays done as outpt were negative). discussed ice, compression. will give trial to voltaren gel since APAP obviously relative contraindication at this time, NSAIDs also h epatic metabolized, and opiates not indicated. discussed reasonable time frame for recovery, proprioceptive retraining, etc. discussed time frame for f/u and for when formal PT might be needed. stable for home, otherwise as above Resident Activity Tracking Resident Involvement: Resident Care Provided Care Provided: Adult Hospital Medicine
[2019-11-23] MEDS ORDERED: DICLOFENAC SOD 1% GEL 100 GM TUBE EXT SCH (17:00)
[2019-11-23 17:14] LABS: INR 1.1 (0.9-1.1); Prothrombin Time 11.4 Seconds (9.0-12.0)
[2019-11-23 17:41] LABS: Alanine Aminotransferase 19 U/L (12-78); Albumin Level 3.6 gm/dl (3.4-5.0); Alkaline Phosphatase 85 U/L (45-117); Aspartate Aminotransferase 11 U/L (15-37); Bilirubin Direct < 0.1 mg/dl (0-0.2); Bilirubin,Total 0.2 mg/dl (0.2-1); Total Protein 7.6 gm/dl (6.4-8.2)
--- NOTE | 2019-11-23 18:37 | Billing Data ---
Date of Service November 23, 2019 Coding Level of Care Code 68348 OBS Care - Discharge
[2019-11-23] MEDS ORDERED: QUEtiapine FUMARATE 200 MG TAB PO SCH (21:00)
[2019-11-23] MEDS ORDERED: QUEtiapine FUMARATE 300 MG TABLET PO SCH (21:00)
[2019-11-25 01:16] LABS: Marijuana Quant, GCMS Urine 29 ng/mL (<5)
== END 2019-11-23 18:35 | disposition home or self-care (01) | DRG 918 ==
LOC: ED 19:35 → SUATTDRO 22:31 → INTOOBSV 22:31 → 2N 22:31 → 3E 11-23 12:29

== ENCOUNTER 2021-07-11 23:50 | Observation (INO) ==
--- NOTE | 2021-07-12 00:26 | Emergency Department Note ---
Impression & Plan Intractable abdominal pain Admit to the [facility] service ED Provider Note NAME: EVELIN HAYES AGE: 20 SEX: F ARRIVES VIA: Walk-In INFORMANT: Patient ED PROVIDER(S): Ernestina Will DO CHIEF COMPLAINT: Left-sided abdominal pain PLAN: Disposition: Admit to the [facility] service Condition: Fair MEDICAL DECISION MAKING: This is a 20-year-old female patient transitioning to male who presents to the emergency department complaining of left-sided abdominal pain and no bowel movement over the past 9 days. Laboratory studies were fairly unremarkable. Obstruction series was somewhat concerning for dilated loops of bowel with air- fluid levels. The patient went on to have a CT scan of the abdomen/pelvis which showed fluid-filled large and small bowel but no obvious signs of bowel obstruction. However the patient's abdominal pain was not well controlled despite multiple doses of IV opioid analgesia. [facility] for further management. Triage Nursing notes reviewed and agree with them. Prior medical records reviewed Vital Signs: reviewed and remarkable for hypertension and fever Differential diagnosis: Small bowel obstruction, constipation, sepsis, UTI ER treatment provided: IV Zofran x2 IV normal saline IV Dilaudid x3 Diagnostics interpreted by me: Cardiac Monitoring: Normal sinus rhythm at a rate of 83 Laboratory studies: See below Imaging studies: As per my interpretation Obstruction series: Dilated loops of small bowel with air-fluid levels concerning for small bowel obstruction CT scan of the abdomen/pelvis with contrast: As per stat rad Stomach is distended with ingested material and fluid. Fluid-filled small bowel loops may represent enteritis. Fluid-filled colon is suggestive of diarrheal state. Prior cholecystectomy. No hydronephrosis or obstructing stone. Small fat-containing ventral hernia. Mild edema or injection changes in the lower anterior abdominal wall. HPI: 20/F arrives for evaluation of left-sided abdominal pain. The patient has not had a bowel movement in the past 9 days and has had worsening left-sided abdominal pain. He has begun to feel lightheaded and dizzy. His PCP ordered an x-ray 2 days ago and there was no evidence of bowel obstruction. Patient now is having episodes of nausea and vomiting. He has had a previous cholecystectomy and appendectomy. Patient admits that he has been drinking a normal amount of clear liquids but no solid food intake as he has very little appetite. ROS: See above HPI for pertinent positives & negatives. A total of 10 systems reviewed and were otherwise negative. PAST MEDICAL HISTORY:See Below PAST SURGICAL HISTORY:See Below FAMILY HISTORY:See Below SOCIAL HISTORY:See Below HOME MEDICATIONS:See list ALLERGIES:See list VITALS:See Below PHYSICAL EXAMINATION: HEENT: Head - normocephalic and atraumatic. Pupils are equal, round, and reactive to light. Extraocular eye muscles are intact, and sclera are anicteric. Nose - moist nasal mucosa without discharge. Mouth - moist buccal mucosa. Oropharynx is nonerythematous and there is no tonsillar exudate or edema noted. Neck: Supple; no cervical lymphadenopathy Heart: Regular rate and rhythm. There is a normal S1 and S2 with no murmurs, clicks, or gallops appreciated. Lungs: Clear to auscultation bilaterally with no wheezes, rales, or rhonchi. Abdomen: Soft, moderately distended with mild discomfort to palpation over the left mid and lower quadrants. There are normal bowel sounds there are no palpable pulsatile masses or hepatosplenomegaly. There is no guarding, rigidity, or rebound noted. Extremities: No evidence of cyanosis, clubbing, or edema. There are easily palpable peripheral pulses. Skin: warm and dry with good turgor and no rashes. ED COURSE: Times/Reassessments: 0005: The patient was evaluated in room C8. A complete history and physical was performed. An IV lock had been initiated and labs were drawn as above. An order was placed for continuous cardiac monitoring. The patient was in a normal sinus rhythm at a rate of 83. The patient was given IV Zofran and IV Dilaudid. The patient had an obstruction series performed. The patient complained of recurrence of his abdominal pain. He was given a subsequent dose of IV Dilaudid. He was started on IV normal saline drip. The nausea returned and he was given a second dose of IV Zofran. The patient went for CT scan of the abdomen/pelvis to rule out bowel obstruction. Upon returning, the patient's pain returned and he was given an other dose of IV Dilaudid. I discussed the case with the [facility] as the patient was suffering from intractable abdominal pain. 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 Urinary urgency Vertigo Surgical History No pertinent past surgical history S/P appendectomy S/P cholecystectomy S/P tonsillectomy Family History Mother Hypertension Diabetes Breast cancer Ovarian cancer Father Epilepsy Prostate cancer Grandmother (Paternal) Breast cancer Uncle Myocardial infarction Other Appendicitis No significant family history Denies family history of Colorectal cancer Social History Smoking Status: Current every day smoker Tobacco Type: E-cigarettes / Vaping Age Started Using Tobacco: 9; Cigarettes Per Day: daily; Second Hand Exposure: No; Hx Alcohol Use: Yes Alcohol type: beer Hx Substance Use: Yes Last Used Substance: Unknown Last Used Substance Other:: medical marijaunna every day Substance Use Type Other:: meth last used 01/21/2019 Preferred Language: Turkish Communication Ability: Effective Visual Impairment: No Limitations Hearing Ability: Normal New Media Strategist Required: No Beliefs That Will Affect Care: None Current Living Situation: Significant Other current occupational status: employed current occupation: [employer], [employer] Feels Safe at Home: Yes Dental Care, Regularly: No Physical Activity Frequency: Does not Exercise Seatbelt Use: never Sunscreen Use: No Gender Identity: Male Assistive Devices: Contacts Allergies Allergies Allergy/AdvReac Type Severity Reaction Status Date / Time bee venom protein (honey bee) Allergy Severe Anaphylaxis Verified 07/12/21 07:10 Penicillins Allergy Severe Itchiness Verified 07/12/21 07:10 latex Allergy Intermediate Skin Tony Verified 07/12/21 07:10 linaclotide [From Linzess] AdvReac Mild vomiting Verified 07/12/21 07:48 Home Meds Home Medications Medication Instructions Recorded Confirmed testosterone cypionate 100 mg/mL 100 mg SUBCUT WK 11/08/20 07/12/21 intramuscular oil albuterol sulfate 90 mcg/actuation 2 puff INHALATION Q4H PRN 07/12/21 07/12/21 aerosol inhaler bisacodyl 10 mg rectal suppository 10 mg IN DAILY PRN 07/12/21 07/12/21 cetirizine 10 mg tablet 10 mg PO DAILY 07/12/21 07/12/21 diazepam 5 mg tablet 5 mg PO DIRECTED PRN 07/12/21 07/12/21 diclofenac sodium 1 % topical gel 4 g TOPICAL QID 07/12/21 07/12/21 fluticasone 100 mcg-salmeterol 50 1 inh INHALATION BID 07/12/21 07/12/21 mcg/dose blistr powdr for inhalation omeprazole 40 mg capsule,delayed 40 mg PO DAILY 07/12/21 07/12/21 release ondansetron 4 mg disintegrating 4 mg PO Q8H PRN 07/12/21 07/12/21 tablet Previous Rx's Medication Instructions Recorded blood sugar diagnostic (OneTouch #100 ea 11/01/20 Verio test strips) Results & Data (ED) Vital Signs Vital Signs - 24 hr 07/11/21 23:52 07/12/21 00:28 07/12/21 02:00 Temperature 38 C H 38 C H 37.1 C Temperature Source Temporal Artery Scan Oral Oral Pulse Rate 83 91 H Pulse Rate [Apical] 91 H 89 Pulse Rhythm Regular Regular Pulse Rhythm [Apical] Regular Regular Pulse Strength Normal Pulse Strength [Apical] Normal Normal Respiratory Rate 20 18 18 Respiratory Effort / Characteristics Non-Labored Spontaneous Non-Labored Spontaneous Non-Labored Spontaneous Respiratory Depth Normal Normal Normal Respiratory Pattern Regular Regular Regular Blood Pressure 163/83 H Blood Pressure [Right Arm] 161/107 H 160/97 H Blood Pressure Mean 109 Blood Pressure Mean [Right Arm] 125 118 Blood Pressure Position Sitting Blood Pressure Position [Right Arm] Lying Lying Pulse Oximetry 96 94 98 Oxygen Delivery Method Room Air Room Air Room Air Sepsis Recent Fever Within 48 Hours No Sepsis New/Unexplained Change in Mental Status N/A Sepsis Action Taken by Nursing No Action Required 07/12/21 04:00 07/12/21 06:00 Temperature 37.5 C Temperature Source Oral Pulse Rate Pulse Rate [Apical] 85 95 H Pulse Rhythm Pulse Rhythm [Apical] Regular Regular Pulse Strength Pulse Strength [Apical] Normal Normal Respiratory Rate 18 18 Respiratory Effort / Characteristics Non-Labored Spontaneous Non-Labored Spontaneous Respiratory Depth Normal Normal Respiratory Pattern Regular Regular Blood Pressure Blood Pressure [Right Arm] 132/79 159/78 H Blood Pressure Mean Blood Pressure Mean [Right Arm] 96 105 Blood Pressure Position Blood Pressure Position [Right Arm] Lying Lying Pulse Oximetry 96 97 Oxygen Delivery Method Room Air Room Air Sepsis Recent Fever Within 48 Hours Sepsis New/Unexplained Change in Mental Status Sepsis Action Taken by Nursing Laboratory Data Result diagrams: 07/12/21 00:11 07/12/21 00:11 Lab Results 07/12/21 07/12/21 07/12/21 Range/Units 00:11 00:11 00:40 WBC 9.31 (4.8-10.8) K/uL RBC 5.40 (4.2-5.4) M/uL Hgb 15.7 (12.0-16.0) g/dL Hct 46.2 (37-47) % MCV 85.6 (80-100) fL MCH 29.1 (25-34) pg MCHC 34.0 (32-36) g/dL RDW Std Deviation 41.7 (36.4-46.3) fL RDW Coeff of Alessandra 13.5 (11.5-14.5) % Plt Count 319 (130-400) K/uL MPV 11.3 H (7.4-10.4) fL Immature Gran % (Auto) 0.1 % Neut % (Auto) 59.9 % Lymph % (Auto) 30.3 % Reagan % (Auto) 7.9 % Eos % (Auto) 1.6 % Baso % (Auto) 0.2 % Neut # (Auto) 5.57 (1.4-6.5) K/uL Lymph # (Auto) 2.82 (1.2-3.4) K/uL Reagan # (Auto) 0.74 H (0.11-0.59) K/uL Eos # (Auto) 0.15 (0-0.5) K/uL Baso # (Auto) 0.02 (0-0.2) K/uL Immature Gran # (Auto) 0.01 (0.00-0.02) K/uL Sodium 137 (136-145) mmol/L Potassium 4.1 (3.5-5.1) mmol/L Chloride 104 (98-107) mmol/L Carbon Dioxide 25 (21-32) mmol/L Anion Gap 8 (3-11) BUN 11 (6-23) mg/dl Creatinine 0.75 (0.6-1.2) mg/dl Est Cr Clr Drug Dosing 185.3 ml/min Est GFR ( Amer) 132.1 ml/min Est GFR (Non-Af Amer) 113.9 ml/min BUN/Creatinine Ratio 14.7 (10-20) Glucose 120 H (70-99(Fasting)) mg/dl Calcium 9.3 (8.5-10.1) mg/dl Magnesium 2.0 (1.7-2.4) mg/dl Total Bilirubin 0.5 (0.2-1.0) mg/dl AST 14 (13-39) U/L ALT 15 (7-52) U/L Alkaline Phosphatase 96 (34-104) U/L Total Protein 7.6 (6.0-8.3) gm/dl Albumin 4.5 (3.4-5.0) gm/dl Globulin 3.1 (2.5-4.0) gm/dl Albumin/Globulin Ratio 1.5 (0.9-2) Lipase 32 (11-82) U/L Urine Color Urine Appearance (Clear) Urine pH (4.5-7.5) Ur Specific [place] (1.000-1.030) Urine Protein (Negative) Urine Glucose (UA) (Negative) Urine Ketones (Negative) Urine Blood (Negative) Urine Nitrite (Negative) Urine Bilirubin (Negative) Urine Urobilinogen (Negative) Ur Leukocyte Esterase (Negative) POC Ur Test (NEG) SARS-CoV-2, RNA, NAAT (NEGATIVE) 07/12/21 07/12/21 07/12/21 Range/Units 02:50 02:50 02:50 WBC (4.8-10.8) K/uL RBC (4.2-5.4) M/uL Hgb (12.0-16.0) g/dL Hct (37-47) % MCV (80-100) fL MCH (25-34) pg MCHC (32-36) g/dL RDW Std Deviation (36.4-46.3) fL RDW Coeff of Alessandra (11.5-14.5) % Plt Count (130-400) K/uL MPV (7.4-10.4) fL Immature Gran % (Auto) % Neut % (Auto) % Lymph % (Auto) % Reagan % (Auto) % Eos % (Auto) % Baso % (Auto) % Neut # (Auto) (1.4-6.5) K/uL Lymph # (Auto) (1.2-3.4) K/uL Reagan # (Auto) (0.11-0.59) K/uL Eos # (Auto) (0-0.5) K/uL Baso # (Auto) (0-0.2) K/uL Immature Gran # (Auto) (0.00-0.02) K/uL Sodium (136-145) mmol/L Potassium (3.5-5.1) mmol/L Chloride (98-107) mmol/L Carbon Dioxide (21-32) mmol/L Anion Gap (3-11) BUN (6-23) mg/dl Creatinine (0.6-1.2) mg/dl Est Cr Clr Drug Dosing ml/min Est GFR ( Amer) ml/min Est GFR (Non-Af Amer) ml/min BUN/Creatinine Ratio (10-20) Glucose (70-99(Fasting)) mg/dl Calcium (8.5-10.1) mg/dl Magnesium (1.7-2.4) mg/dl Total Bilirubin (0.2-1.0) mg/dl AST (13-39) U/L ALT (7-52) U/L Alkaline Phosphatase (34-104) U/L Total Protein (6.0-8.3) gm/dl Albumin (3.4-5.0) gm/dl Globulin (2.5-4.0) gm/dl Albumin/Globulin Ratio (0.9-2) Lipase (11-82) U/L Urine Color Yellow Urine Appearance Clear (Clear) Urine pH 6.0 (4.5-7.5) Ur Specific [place] > 1.045 H (1.000-1.030) Urine Protein Negative (Negative) Urine Glucose (UA) Negative (Negative) Urine Ketones Negative (Negative) Urine Blood Negative (Negative) Urine Nitrite Negative (Negative) Urine Bilirubin Negative (Negative) Urine Urobilinogen Negative (Negative) Ur Leukocyte Esterase Negative (Negative) POC Ur Test NEG (NEG) SARS-CoV-2, RNA, NAAT NEGATIVE (NEGATIVE) Administered Medications Discontinued Medications Hydromorphone HCl (Hydromorphone Inj 1 Mg/Ml Syringe) 1 mg IV NOW STA Stop: 07/12/21 01:27 Last Admin: 07/12/21 01:39 Dose: 1 mg Documented by: [id number] Hydromorphone HCl (Hydromorphone Inj 1 Mg/Ml Syringe) 1 mg IV NOW STA Stop: 07/12/21 02:25 Last Admin: 07/12/21 02:38 Dose: 1 mg Documented by: [id number] Hydromorphone HCl (Hydromorphone Inj 1 Mg/Ml Syringe) 1 mg IV NOW STA Stop: 07/12/21 04:27 Last Admin: 07/12/21 04:30 Dose: 1 mg Documented by: [id number] Sodium Chloride (Nss) 500 mls @ 999 mls/hr IV .Q31M ONE Stop: 07/12/21 01:56 Last Infusion: 07/12/21 02:09 Dose: 0 mls/hr Documented by: [id number] Admin: 07/12/21 01:40 Dose: 999 mls/hr Documented by: [id number] Sodium Chloride (Nss) 500 mls @ 125 mls/hr IV .Q4H HETAL Stop: 08/11/21 01:29 Last Admin: 07/12/21 08:00 Dose: Not Given Documented by: [id number] Infusion: 07/12/21 06:20 Dose: 0 mls/hr Documented by: [id number] Admin: 07/12/21 02:09 Dose: 125 mls/hr Documented by: [id number] Ioversol (Optiray 320 125ml) 115 ml IV ONCE ONE Stop: 07/12/21 02:06 Last Admin: 07/12/21 02:05 Dose: 115 ml Documented by: [id number] Ondansetron HCl (Ondansetron Inj 2 Mg/Ml 2 Ml Vial) 4 mg IV NOW STA Stop: 07/12/21 01:27 Last Admin: 07/12/21 01:39 Dose: 4 mg Documented by: [id number] Ondansetron HCl (Ondansetron Inj 2 Mg/Ml 2 Ml Vial) 4 mg IV NOW STA Stop: 07/12/21 02:25 Last Admin: 07/12/21 02:37 Dose: 4 mg Documented by: [id number] Imaging Data Radiologist's Impression: Chest/Abdomen X-ray 07/12/21 00:19 PA CHEST RADIOGRAPH AND UPRIGHT AND SUPINE AP RADIOGRAPHS OF THE ABDOMEN CLINICAL HISTORY: No recent bowel movement. Evaluate for bowel obstruction. COMPARISON STUDY: CT of the abdomen and pelvis November 09, 2019. Chest radiograph December 30, 2020. FINDINGS: Cardiac silhouette is prominent. No pneumothorax or pleural effusion. No consolidation or evidence for pulmonary edema. Cholecystectomy clips are noted. No free air. Colonic air-fluid levels are noted. There is a paucity small bowel gas. There is mild dilatation of the transverse colon. No convincing evidence for a bowel obstruction. Amount of stool is within normal limits. IMPRESSION: 1. No free air. 2. Mild distention of the transverse colon. No convincing evidence for a bowel obstruction. 3. No acute cardiopulmonary findings. ACT 112: Negative or not required by law. Electronically signed by: Jake Beckman M.D. 07/12/2021 6:26 AM Abdomen/Pelvis CT 07/12/21 01:23 CT OF THE ABDOMEN AND PELVIS WITH CONTRAST CLINICAL HISTORY: Left-sided abdominal pain and constipation. Evaluate for small bowel obstruction. COMPARISON STUDY: CT of the abdomen and pelvis November 08, 2020. Abdominal series performed earlier today. TECHNIQUE: Following IV administration of 115 mL of Optiray, axial images of the abdomen and pelvis were obtained from the lung bases to the proximal femurs. Images were reviewed in the axial, sagittal, and coronal planes. IV contrast was administered without complication. Automated exposure control was utilized for the study. A dose lowering technique was utilized adhering to the principles of ALARA. CT DOSE: 1.06 mGy.cm FINDINGS: Lung bases are unremarkable. No pneumatosis, free air or portal venous gas is present. No hepatic lesions are present. There is no biliary ductal dilatation status post cholecystectomy. The spleen, adrenal glands and kidneys are unremarkable. There is no hydronephrosis. There is no peripancreatic s tranding. Major vasculature is patent. There is no lymphadenopathy. The appendix is not visualized. There is no evidence for a small bowel obstruction. Caliber of the small bowel is normal. The entire colon is fluid-filled and moderately dilated. No transition point is noted. No bowel wall thickening is identified. Stomach is distended. No fluid collection is identified. No acute fracture or suspicious lesion within the visualized skeletal structures. IMPRESSION: 1. Fluid-filled moderately distended colon. No transition point to suggest bowel obstruction. No bowel wall thickening. This could indicate a diarrheal state. 2. No evidence for a small bowel obstruction. ACT 112: Negative or not required by law. Electronically signed by: Jake Beckman M.D. 07/12/2021 6:56 AM Discharge Plan Visit Data Chief Complaint: Vertigo Stated Complaint: dizzy,ABD PAIN ED Provider: Ernestina Will Discharge Problem: Intractable abdominal pain Patient Disposition: Admitted As Inpatient
[2021-07-12 00:54] LABS: Basophils # (auto) 0.02 K/uL (0-0.2); Basophils % (auto) 0.2 %; Eosinophils # (auto) 0.15 K/uL (0-0.5); Eosinophils % (auto) 1.6 %; Hematocrit (blood only) 46.2 % (37-47); Hemoglobin 15.7 g/dL (12.0-16.0); Immature Granulocytes # (auto) 0.01 K/uL (0.00-0.02); Immature Granulocytes % (auto) 0.1 %; Lymphocytes # (auto) 2.82 K/uL (1.2-3.4); Lymphocytes % (auto) 30.3 %; Mean Corpuscular Hemoglobin 29.1 pg (25-34); Mean Corpuscular Volume 85.6 fL (80-100); Mean Platelet Volume 11.3 fL (7.4-10.4); Monocytes # (auto) 0.74 K/uL (0.11-0.59); Monocytes % (auto) 7.9 %; Neutrophils # (auto) 5.57 K/uL (1.4-6.5); Neutrophils % (auto) 59.9 %; Platelet Count 319 K/uL (130-400); RDW Coefficient of Variation 13.5 % (11.5-14.5); RDW Standard Deviation 41.7 fL (36.4-46.3); White Blood Count 9.31 K/uL (4.8-10.8)
[2021-07-12 01:05] LABS: Albumin Globulin Ratio 1.5 (0.9-2); Albumin Level 4.5 gm/dl (3.4-5.0); BUN Creatinine Ratio 14.7 (10-20); Bilirubin,Total 0.5 mg/dl (0.2-1.0); Calcium 9.3 mg/dl (8.5-10.1); Creatinine Clr Calc Pharmacy 185.3 ml/min; Est GFR (African American) 132.1 ml/min; Est GFR (Non-African American) 113.9 ml/min; Globulin 3.1 gm/dl (2.5-4.0); Potassium 4.1 mmol/L (3.5-5.1); Total Protein 7.6 gm/dl (6.0-8.3)
[2021-07-12] MEDS ORDERED: HYDROmorphone INJ 1 MG/ML SYRINGE IV STA ×3 (01:26→04:26)
[2021-07-12] MEDS ORDERED: ONDANSETRON INJ 2 MG/ML 2 ML VIAL IV STA ×2 (01:26→02:24)
[2021-07-12] MEDS ORDERED: SODIUM CHLORIDE 0.9% 500 ML IV ONE (01:26)
[2021-07-12] MEDS ORDERED: OPTIRAY 320 125ml IV ONE (02:05)
[2021-07-12] MEDS: SODIUM CHLORIDE 0.9% 500 ML IV SCH ×2 (02:09→08:00)
[2021-07-12 03:26] LABS: Appearance Urine Clear (Clear); Bilirubin Urine Negative (Negative); Blood Urine Negative (Negative); Color Urine Yellow; Glucose Urine UA Negative (Negative); Ketones Urine Negative (Negative); Leukocyte Esterase Urine Negative (Negative); Nitrite Urine Negative (Negative); Protein Urine Negative (Negative); Specific Gravity Urine > 1.045 (1.000-1.030); Urobilinogen Urine Negative (Negative)
--- NOTE | 2021-07-12 06:28 | XRay Report ---
PA CHEST RADIOGRAPH AND UPRIGHT AND SUPINE AP RADIOGRAPHS OF THE ABDOMEN CLINICAL HISTORY: No recent bowel movement. Evaluate for bowel obstruction. COMPARISON STUDY: CT of the abdomen and pelvis November 09, 2019. Chest radiograph December 30 1. FINDINGS: Cardiac silhouette is prominent. No pneumothorax or pleural effusion. No consolidation or evidence for pulmonary edema. Cholecystectomy clips are noted. No free air. Colonic air-fluid levels are noted. There is a paucity small bowel gas. There is mild dilatation of the transverse colon. No c onvincing evidence for a bowel obstruction. Amount of stool is within normal limits. IMPRESSION: 1. No free air. 2. Mild distention of the transverse colon. No convincing evidence for a bowel obstruction. 3. No acute cardiopulmonary findings. ACT 112: Negative or not required by law. Electronically signed by: Jake Beckman M.D. 07/12/2021 6:26 AM
--- NOTE | 2021-07-12 06:54 | History & Physical Report ---
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 SCDs Re: L GIB Full code History of Present Illness Chief Complaint: Abdominal pain, obstipation Primary Care Provider: Mary Donald PA-C History obtained from patient and records. 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 Last confinement November 2019 for unintentional Tylenol overdose. Patient seen at PCPs office 3 weeks ago for abdominal pain and constipation symptoms of 2 days duration. Symptoms attributed to gastroparesis. Symptoms responded to laxative regimen prescribed by outpatient provider. 9 days ago, patient had recurrence of constipation symptoms later followed by achy left-sided abdominal pain with some nausea. Minimal rectal bleed with straining. No response to outpatient stool softener and MiraLAX intake. Patient seen at PCPs office 2 days ago. MiraLAX regimen recommended. Outpatient plain x-ray negative for obstruction. Worsening symptoms despite compliance with MiraLAX regimen. Patient lightheaded. Denies chest pain, SOB, fever, chills. Medical History as above Surgical History : Cholecystectomy, tonsillectomy Family History : Breast cancer, lung cancer Personal/Social history : Vape use, no EtOH intake, [employer] employee Allergies Allergy/AdvReac Type Severity Reaction Status Date / Time bee venom protein (honey bee) Allergy Severe Anaphylaxis Verified 07/12/21 07:10 Penicillins Allergy Severe Itchiness Verified 07/12/21 07:10 latex Allergy Intermediate Skin Tony Verified 07/12/21 07:10 linaclotide [From Linzess] AdvReac Mild vomiting Verified 07/12/21 07:48 Home Medications Medication Instructions Recorded Confirmed Type blood sugar diagnostic (OneTouch #100 ea 11/01/20 06/03/21 Rx Verio test strips) testosterone cypionate 100 mg/mL 100 mg SUBCUT WK 11/08/20 07/12/21 History intramuscular oil albuterol sulfate 90 mcg/actuation 2 puff INHALATION Q4H PRN 07/12/21 07/12/21 History aerosol inhaler bisacodyl 10 mg rectal suppository 10 mg UT DAILY PRN 07/12/21 07/12/21 History cetirizine 10 mg tablet 10 mg PO DAILY 07/12/21 07/12/21 History diazepam 5 mg tablet 5 mg PO DIRECTED PRN 07/12/21 07/12/21 History diclofenac sodium 1 % topical gel 4 g TOPICAL QID 07/12/21 07/12/21 History fluticasone 100 mcg-salmeterol 50 1 inh INHALATION BID 07/12/21 07/12/21 History mcg/dose blistr powdr for inhalation omeprazole 40 mg capsule,delayed 40 mg PO DAILY 07/12/21 07/12/21 History release ondansetron 4 mg disintegrating 4 mg PO Q8H PRN 07/12/21 07/12/21 History tablet Past Med/Surg History Medical History (Updated 07/12/21 @ 08:26 by Ernestina Will DO) Allergic rhinitis Asthma Bipolar 1 disorder Change in stool 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 Urinary urgency Vertigo Surgical History No pertinent past surgical history S/P appendectomy S/P cholecystectomy S/P tonsillectomy Family History Mother Hypertension Diabetes Breast cancer Ovarian cancer Father Epilepsy Prostate cancer Grandmother (Paternal) Breast cancer Uncle Myocardial infarction Other Appendicitis No significant family history Denies family history of Colorectal cancer Social History Smoking Status: Current every day smoker Tobacco Type: E-cigarettes / Vaping Age Started Using Tobacco: 9; Cigarettes Per Day: daily; Second Hand Exposure: No; Hx Alcohol Use: Yes Alcohol type: beer Hx Substance Use: Yes Last Used Substance: Unknown Last Used Substance Other:: medical marijaunna every day Substance Use Type Other:: meth last used 01/21/2019 Preferred Language: Icelandic Communication Ability: Effective Visual Impairment: No Limitations Hearing Ability: Normal Sand Filler Required: No Beliefs That Will Affect Care: None Current Living Situation: Significant Other current occupational status: employed current occupation: [employer] Feels Safe at Home: Yes Dental Care, Regularly: No Physical Activity Frequency: Does not Exercise Seatbelt Use: never Sunscreen Use: No Gender Identity: Male Assistive Devices: Contacts Review of Systems Review of Systems: As per HPI, all other systems reviewed and negative Physical Exam Physical Exam: GENERAL: uncomfortable, morbidly obese, pleasant, dysphonic, no respiratory distress SKIN: Normal color, warm HEENT: [place] palpebral conjunctivae, no ptosis, dry buccal mucosa NECK : Supple, short neck, no tenderness CHEST : CTA, no tenderness HEART : RRR, no obvious murmurs ABDOMEN: Some distention, central abdominal tenderness EXTREMITIES : No LE swelling/tenderness, no other conspicuous deformities noted NEUROLOGIC : Coherent, no facial asymmetry, no other gross focality Results & Data Results & Data ([facility]) Vital Signs (Past 12 Hours) Vital Signs Temp Pulse Pulse Resp BP BP Pulse Ox 07/12/21 06:00 37.5 C 95 H 18 159/78 H 97 07/12/21 04:00 85 18 132/79 96 07/12/21 02:00 37.1 C 89 18 160/97 H 98 07/12/21 00:28 38 C H 91 H 91 H 18 161/107 H 94 07/11/21 23:52 38 C H 83 20 163/83 H 96 Laboratory Results Laboratory Results WBC 9.31 K/uL (4.8-10.8) 07/12/21 00:11 RBC 5.40 M/uL (4.2-5.4) 07/12/21 00:11 Hgb 15.7 g/dL (12.0-16.0) 07/12/21 00:11 Hct 46.2 % (37-47) 07/12/21 00:11 MCV 85.6 fL (80-100) 07/12/21 00:11 MCH 29.1 pg (25-34) 07/12/21 00:11 MCHC 34.0 g/dL (32-36) 07/12/21 00:11 RDW Std Deviation 41.7 fL (36.4-46.3) 07/12/21 00:11 RDW Coeff of Alessandra 13.5 % (11.5-14.5) 07/12/21 00:11 Plt Count 319 K/uL (130-400) 07/12/21 00:11 MPV 11.3 fL (7.4-10.4) H 07/12/21 00:11 Immature Gran % (Auto) 0.1 % 07/12/21 00:11 Neut % (Auto) 59.9 % 07/12/21 00:11 Lymph % (Auto) 30.3 % 07/12/21 00:11 [place] % (Auto) 7.9 % 07/12/21 00:11 Eos % (Auto) 1.6 % 07/12/21 00:11 Baso % (Auto) 0.2 % 07/12/21 00:11 Neut # (Auto) 5.57 K/uL (1.4-6.5) 07/12/21 00:11 Lymph # (Auto) 2.82 K/uL (1.2-3.4) 07/12/21 00:11 [place] # (Auto) 0.74 K/uL (0.11-0.59) H 07/12/21 00:11 Eos # (Auto) 0.15 K/uL (0-0.5) 07/12/21 00:11 Baso # (Auto) 0.02 K/uL (0-0.2) 07/12/21 00:11 Immature Gran # (Auto) 0.01 K/uL (0.00-0.02) 07/12/21 00:11 Sodium 137 mmol/L (136-145) 07/12/21 00:11 Potassium 4.1 mmol/L (3.5-5.1) 07/12/21 00:11 Chloride 104 mmol/L (98-107) 07/12/21 00:11 Carbon Dioxide 25 mmol/L (21-32) 07/12/21 00:11 Anion Gap 8 (3-11) 07/12/21 00:11 BUN 11 mg/dl (6-23) 07/12/21 00:11 Creatinine 0.75 mg/dl (0.6-1.2) 07/12/21 00:11 Est Cr Clr Drug Dosing 185.3 ml/min 07/12/21 00:11 Est GFR ( Amer) 132.1 ml/min 07/12/21 00:11 Est GFR (Non-Af Amer) 113.9 ml/min 07/12/21 00:11 BUN/Creatinine Ratio 14.7 (10-20) 07/12/21 00:11 Glucose 120 mg/dl (70-99(Fasting)) H 07/12/21 00:11 Calcium 9.3 mg/dl (8.5-10.1) 07/12/21 00:11 Total Bilirubin 0.5 mg/dl (0.2-1.0) 07/12/21 00:11 AST 14 U/L (13-39) 07/12/21 00:11 ALT 15 U/L (7-52) 07/12/21 00:11 Alkaline Phosphatase 96 U/L (34-104) 07/12/21 00:11 Total Protein 7.6 gm/dl (6.0-8.3) 07/12/21 00:11 Albumin 4.5 gm/dl (3.4-5.0) 07/12/21 00:11 Globulin 3.1 gm/dl (2.5-4.0) 07/12/21 00:11 Albumin/Globulin Ratio 1.5 (0.9-2) 07/12/21 00:11 Lipase 32 U/L (11-82) 07/12/21 00:11 Urine Color Yellow 07/12/21 02:50 Urine Appearance Clear (Clear) 07/12/21 02:50 Urine pH 6.0 (4.5-7.5) 07/12/21 02:50 Ur Specific [place] > 1.045 (1.000-1.030) H 07/12/21 02:50 Urine Protein Negative (Negative) 07/12/21 02:50 Urine Glucose (UA) Negative (Negative) 07/12/21 02:50 Urine Ketones Negative (Negative) 07/12/21 02:50 Urine Blood Negative (Negative) 07/12/21 02:50 Urine Nitrite Negative (Negative) 07/12/21 02:50 Urine Bilirubin Negative (Negative) 07/12/21 02:50 Urine Urobilinogen Negative (Negative) 07/12/21 02:50 Ur Leukocyte Esterase Negative (Negative) 07/12/21 02:50 POC Ur Test NEG (NEG) 07/12/21 02:50 SARS-CoV-2, RNA, NAAT NEGATIVE (NEGATIVE) 07/12/21 02:50 Impressions Chest/Abdomen X-ray 07/12/21 00:19 PA CHEST RADIOGRAPH AND UPRIGHT AND SUPINE AP RADIOGRAPHS OF THE ABDOMEN CLINICAL HISTORY: No recent bowel movement. Evaluate for bowel obstruction. COMPARISON STUDY: CT of the abdomen and pelvis November 09, 2019. Chest radiograph December 30, 2020. FINDINGS: Cardiac silhouette is prominent. No pneumothorax or pleural effusion. No consolidation or evidence for pulmonary edema. Cholecystectomy clips are noted. No free air. Colonic air-fluid levels are noted. There is a paucity small bowel gas. There is mild dilatation of the transverse colon. No convincing evidence for a bowel obstruction. Amount of stool is within normal limits. IMPRESSION: 1. No free air. 2. Mild distention of the transverse colon. No convincing evidence for a bowel obstruction. 3. No acute cardiopulmonary findings. ACT 112: Negative or not required by law. Electronically signed by: Jake Beckman M.D. 07/12/2021 6:[address] abdomen pelvis initial read: Stomach is distended with ingested material and fluid. Fluid filled small bowel loops mayrepresent enteritis. Fluid filled colon is suggestive of diarrheal state. Prior cholecystectomy. No hydronephrosis or obstructing stone. Small fat- containing ventral hernia. Mild edema or injection changes in the lower anterior abdominal wall.
--- NOTE | 2021-07-12 06:59 | CT Scan Report ---
CT OF THE ABDOMEN AND PELVIS WITH CONTRAST CLINICAL HISTORY: Left-sided abdominal pain and constipation. Evaluate for small bowel obstruction. COMPARISON STUDY: CT of the abdomen and pelvis November 08, 2020. Abdominal series performed [facility] morales. TECHNIQUE: Following IV administration of 115 mL of Optiray, axial images of the abdomen and pelvis w ere obtained from the lung bases to the proximal femurs. Images were reviewed in the axial, sagittal, and coronal planes. IV contrast was administered without complication. Automated exposure control w as utilized for the study. A dose lowering technique was utilized adhering to the principles of ALAR A. CT DOSE: 2041.06 mGy.cm FINDINGS: Lung bases are unremarkable. No pneumatosis, free air or portal venous gas is present. No h epatic lesions are present. There is no biliary ductal dilatation status post cholecystectomy. The sp liset, adrenal glands and kidneys are unremarkable. There is no hydronephrosis. There is no peripancre atic stranding. Major vasculature is patent. There is no lymphadenopathy. The appendix is not visuali zed. There is no evidence for a small bowel obstruction. Caliber of the small bowel is normal. The en tire colon is fluid-filled and moderately dilated. No transition point is noted. No bowel wall thicke derian is identified. Stomach is distended. No fluid collection is identified. No acute fracture or belle picious lesion within the visualized skeletal structures. IMPRESSION: 1. Fluid-filled moderately distended colon. No transition point to suggest bowel obstruction. No zack l wall thickening. This could indicate a diarrheal state. 2. No evidence for a small bowel obstruction. ACT 112: Negative or not required by law. Electronically signed by: Jake Beckman M.D. 07/12/2021 6:56 AM
[2021-07-12] MEDS ORDERED: DOCUSATE SODIUM/SENNA 50/8.6MG TAB PO STA (07:26)
[2021-07-12] MEDS ORDERED: KETOROLAC TROMETHAMINE 15 MG/ML VIAL IV ONE (07:26)
[2021-07-12] MEDS ORDERED: LACTULOSE SYRUP 20 GM/30 ML UDC PO STA (07:26)
[2021-07-12] MEDS ORDERED: ACETAMINOPHEN 325 MG TAB PO PRN (07:33)
[2021-07-12] MEDS ORDERED: PROMETHAZINE HCL 12.5 MG in SODIUM CHLORIDE 0.9% 50 ML IV PRN (07:33)
[2021-07-12] MEDS ORDERED: LORazepam 2 MG/1 ML VIAL IV PRN (07:33)
[2021-07-12] MEDS ORDERED: SODIUM CHLORIDE 0.9% 1000ML 1,000 ML IV ONE (07:33)
[2021-07-12] MEDS ORDERED: POLYETHYLENE (MIRALAX) 17 GM PACK PO PRN (07:33)
[2021-07-12] MEDS ORDERED: KETOROLAC TROMETHAMINE 15 MG/ML VIAL IV PRN (07:33)
[2021-07-12] MEDS ORDERED: bisacodyL 10 MG SUPP PR PRN (08:41)
[2021-07-12] MEDS ORDERED: PANTOprazole 40 MG TAB PO SCH (09:00)
[2021-07-12] MEDS ORDERED: CETIRIZINE HCL 10 MG TABLET PO SCH (09:00)
--- NOTE | 2021-07-12 14:18 | Discharge Summary ---
Date of Service July 12, 2021 Admission HPI Per Admitting Provider History obtained from patient and records. 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 Last confinement November 2019 for unintentional Tylenol overdose. Patient seen at PCPs office 3 weeks ago for abdominal pain and constipation symptoms of 2 days duration. Symptoms attributed to gastroparesis. Symptoms responded to laxative regimen prescribed by outpatient provider. 9 days ago, patient had recurrence of constipation symptoms later followed by achy left-sided abdominal pain with some nausea. Minimal rectal bleed with straining. No response to outpatient stool softener and MiraLAX intake. Patient seen at PCPs office 2 days ago. MiraLAX regimen recommended. Outpatient plain x-ray negative for obstruction. Worsening symptoms despite compliance with MiraLAX regimen. Patient lightheaded. Denies chest pain, SOB, fever, chills. Medical History as above Surgical History : Cholecystectomy, tonsillectomy Family History : Breast cancer, lung cancer Personal/Social history : Vape use, no EtOH intake, [employer] employee Principal Diagnosis Constipation Abdominal pain Discharge Exam Since admission, he has had several watery bowel movements and resolution of abdominal pain. Tolerating a regular diet and feels back to baseline. Feels ready for discharge On exam, appears well, pleasant and comfortable. Abdomen is obese, soft, non tender Discharge Data Allergies Allergy/AdvReac Type Severity Reaction Status Date / Time bee venom protein (honey bee) Allergy Severe Anaphylaxis Verified 07/12/21 07:10 Penicillins Allergy Severe Itchiness Verified 07/12/21 07:10 latex Allergy Intermediate Skin Tony Verified 07/12/21 07:10 linaclotide [From Linzess] AdvReac Mild vomiting Verified 07/12/21 07:48 Consultations 07/12/21 05:49 ED Decision to Admit Stat Ordered Studies 07/12/21 01:23 CT abd pelvis IV con only Urgent Hospital Course Mr Alexandre Don is a 20 year old female who is currently on hormonal therapy to transition to male, with history of prediabetes, gastroparesis, anxiety presents to ER /3 for abdominal pain and constipation for past 9 days. He had a CT A/P here which showed colon dilation which can be associated with a diarrhea pattern (patient denies recent diarrhea and instead reports no BM in 9 days) He was placed on an aggressive bowel regimen and while here had several loose watery bowel movements with resolution of abdominal discomfort. He is tolerating a regular diet and feels back to baseline. Upon further questioning, patient reports a history of intermittent constipation but "never this bad". He sees GI for management of his gastroparesis and was instructed to follow up with them to discuss whether he needs a colonoscopy. All questions were answered, patient was educated on management of constipation and gastroparesis. Total Time Total Time Spent Total Time Spent (In Minutes): 30 Discharge Plan Discharge Items Patient Disposition: Home - Self-Care Reason For Visit: abd pain Discharge Diagnosis: Constipation Abdominal pain Condition on Discharge: Good Activity: Resume your previous activity Non-emergency contact: Primary Care Provider and Stick Puller Call non-emergency contact if: you have any medication questions and your symptoms worsen Follow-up/Referrals: Mary Donald PA-C [Primary Care Provider] - Diet: Carb Consistent or DM2 Addtl Attending Provider Instructions: Please follow up with your GI doctor to decide whether you need a colonoscopy for your intermittent severe constipation Pending Studies at Discharge: No Stand-Alone Forms: My [facility] [employer], Smoking Cessation Medications and DC Order Prescriptions: New polyethylene glycol 3350 [Miralax] 17 gram Powder In Packet 17 g PO DAILY PRN (Reason: constipation) 30 Days Qty: 14 RF: 0 Continued (DME) OneTouch Verio test strips Strip See Rx Instructions .ROUTE .MEDSUPPLY Qty: 100 RF: 5 testosterone cypionate 100 mg/mL oil 100 mg subcut WK RF: 0 cetirizine 10 mg Tablet 10 mg PO DAILY RF: 0 omeprazole 40 mg capsule,delayed release(DR/EC) 40 mg PO DAILY RF: 0 bisacodyl 10 mg suppository 10 mg [place] DAILY PRN (Reason: Constipation) RF: 0 fluticasone propion-salmeterol 100-50 mcg/dose Blister With Device 1 inh INHALATION BID RF: 0 albuterol sulfate 90 mcg/actuation HFA aerosol inhaler 2 puff INHALATION Q4H PRN (Reason: Wheezing) RF: 0 ondansetron 4 mg tablet,disintegrating 4 mg PO Q8H PRN (Reason: Nausea) RF: 0 diazepam 5 mg Tablet 5 mg PO DIRECTED PRN (Reason: Anxiety) RF: 0 diclofenac sodium 1 % Gel 4 g TOPICAL QID RF: 0 Discharge Orders: Discharge Order (Routine); Ordered 07/12/21 Ordered By: Birgit Almeida Admission Data Admit Date/Time: 07/12/21 07:30 Attending Provider: Birgit Almeida Admit Provider: Vince Reynoso Primary Care Provider: Mary Donald Other Providers: Ana Seals
[2021-07-12] MEDS ORDERED: DOCUSATE SODIUM/SENNA 50/8.6MG TAB PO SCH (21:00)
[2021-07-13] MEDS ORDERED: FLUTICASONE/VILANTEROL 100/25MCG 14 PUFFS/INHALER INH SCH (09:00)
== END 2021-07-12 15:51 | disposition home or self-care (01) ==
LOC: 3N 23:50 → ED 23:50 → 3N 07-12 08:15